=== PATIENT | female | born 1970 | race Caucasian/White ===

== ENCOUNTER 2020-12-27 23:25 | Emergency (ER) | payer OTHER, SELFPAY ==
--- NOTE | 2020-12-27 23:31 | ED.GENADULT ---
HPI - General Adult General Chief complaint: ETOH/Substance Use Stated complaint: SI Time Seen by Provider: 12/27/20 23:29 Source: patient Mode of arrival: EMS Limitations: altered mental status History of Present Illness HPI narrative: Patient comes to emergency room under Section 12. According to EMS and Police Department, earlier this evening, patient made suicidal statements to her daughter. Patient has history of previous suicidal attempts. Patient's keeps saying that she wants to go to rehab. Patient denies suicidal or homicidal ideation. Unwilling to give any further history. Patient came in handcuffed. At this time, patient, is loud, but not physically aggressive, patient is not being restrained. Related Data Allergies Allergy/AdvReac Type Severity Reaction Status Date / Time No Known Allergies Allergy Unverified 05/18/20 19:50 [No Known Allergies*] Review of Systems Review of Systems: Keeps saying I want to go to rehab Yes Other (Uncooperative) [facility] Past Medical History Medical History Alcoholism Suicide attempt Surgical History (Updated 12/27/20 @ 23:36 by Cleo Thompson) History of bladder surgery Social History Social History Alcohol intake: current Smoking Status: Current every day smoker Use of substances other than those prescribed or required for medical reasons: No Advance Directives: No Physical Exam Vital Signs: Vital Signs: Last Vital Signs Temp 98.0 F 12/27/20 23:34 Pulse 95 12/27/20 23:34 Resp 18 12/27/20 23:34 BP 127/92 H 12/27/20 23:34 Pulse Ox 98 12/27/20 23:34 Body Mass Index 23.3 Appearance: Alert. Oriented X3. Initially combative, now calm but not cooperative, unwilling to speak , patient is intoxicated Eyes: Pupils equal, round and reactive to light. ENT: Pharynx normal. Neck: Normal inspection. Neck supple. No lymph nodes noted. No crepitus CVS: Normal heart rate and rhythm. Pulses normal. Normal S1 and S2 Respiratory: No respiratory distress. Breath sounds normal. No Wheezing. No rales Abdomen: Soft and nontender. No rigidity. No distention. Skin: Skin warm and dry. Normal skin color. Normal skin turgor. Extremities: No lower extremity edema. Neuro: Cranial nerves 2-12 grossly intact Psych: Moderately agitated, unwilling to speak, intoxicated, crying Medical Decision Making Lab Data Result diagrams: 12/28/20 00:19 12/28/20 00:19 Labs: Lab Results 12/28/20 12/28/20 12/28/20 Range/Units 00:19 00:19 00:19 WBC 6.1 (4.8-10.8) X10*3/uL RBC 4.42 (4.20-5.50) X10*6/uL Hgb 13.7 (12.0-16.0) g/dl Hct 39.9 (37-47) % MCV 90.3 (80-98) fL MCH 31.0 (27.0-33.0) pg MCHC 34.3 (31.0-35.0) g/dl RDW 12.7 (11.0-16.0) % Plt Count 240 (160-400) X10*3/uL MPV 9.3 L (9.4-12.3) fL Immature Gran % (Auto) 0.2 (0.0-0.4) % Neut % (Auto) 37.6 L (45-73) % Lymph % (Auto) 55.4 H (20-40) % [place] % (Auto) 4.2 (2-11) % Eos % (Auto) 1.6 (0-4) % Baso % (Auto) 1.0 (0-2) % Lymph # (Auto) 3.4 (1.2-4.9) X10*3/uL [place] # (Auto) 0.3 (0.1-1.2) X10*3/uL Eos # (Auto) 0.1 (0.0-0.4) X10*3/uL Baso # (Auto) 0.1 (0.0-0.2) X10*3/uL Abs Immat Gran (auto) 0.01 (0.00-0.03) X10*3/uL Absolute Neuts (auto) 2.3 (2.0-8.3) X10*3/uL Absolute Nucleated RBC 0.000 (0.0-0.012) X10*3/uL Nucleated RBC % (auto) 0.0 (0.0-0.2) /100WBC Sodium 145 (135-145) mmol/L Potassium 3.8 (3.3-5.1) mmol/L Chloride 107 (96-108) mmol/L Carbon Dioxide 28 (22-29) mmol/L Anion Gap 14 (12-20) BUN 9 (9-16) mg/dL Creatinine 0.67 (0.5-1.4) mg/dL Estim Creat Clear Calc 88.7 Estimated GFR > 60 Random Glucose 83 (60-115) mg/dL Calcium 8.6 (8.4-10.2) mg/dL Total Bilirubin 0.3 (0.0-1.0) mg/dL Direct Bilirubin < 0.2 (0.0-0.5) mg/dL AST 26 (5-31) U/L ALT 19 (0-31) U/L Alkaline Phosphatase 65 (39-117) U/L Total Protein 6.6 (6.5-8.0) g/dL Albumin 4.2 (3.5-5.0) g/dL Salicylates (15-30) mg/dL Acetaminophen (<30) mcg/mL Ethyl Alcohol 334 H* mg/dL 12/28/20 Range/Units 00:19 WBC (4.8-10.8) X10*3/uL RBC (4.20-5.50) X10*6/uL Hgb (12.0-16.0) g/dl Hct (37-47) % MCV (80-98) fL MCH (27.0-33.0) pg MCHC (31.0-35.0) g/dl RDW (11.0-16.0) % Plt Count (160-400) X10*3/uL MPV (9.4-12.3) fL Immature Gran % (Auto) (0.0-0.4) % Neut % (Auto) (45-73) % Lymph % (Auto) (20-40) % [place] % (Auto) (2-11) % Eos % (Auto) (0-4) % Baso % (Auto) (0-2) % Lymph # (Auto) (1.2-4.9) X10*3/uL [place] # (Auto) (0.1-1.2) X10*3/uL Eos # (Auto) (0.0-0.4) X10*3/uL Baso # (Auto) (0.0-0.2) X10*3/uL Abs Immat Gran (auto) (0.00-0.03) X10*3/uL Absolute Neuts (auto) (2.0-8.3) X10*3/uL Absolute Nucleated RBC (0.0-0.012) X10*3/uL Nucleated RBC % (auto) (0.0-0.2) /100WBC Sodium (135-145) mmol/L Potassium (3.3-5.1) mmol/L Chloride (96-108) mmol/L Carbon Dioxide (22-29) mmol/L Anion Gap (12-20) BUN (9-16) mg/dL Creatinine (0.5-1.4) mg/dL Estim Creat Clear Calc Estimated GFR Random Glucose (60-115) mg/dL Calcium (8.4-10.2) mg/dL Total Bilirubin (0.0-1.0) mg/dL Direct Bilirubin (0.0-0.5) mg/dL AST (5-31) U/L ALT (0-31) U/L Alkaline Phosphatase (39-117) U/L Total Protein (6.5-8.0) g/dL Albumin (3.5-5.0) g/dL Salicylates < 5.0 L (15-30) mg/dL Acetaminophen < 1 (<30) mcg/mL Ethyl Alcohol mg/dL
[2020-12-27 23:34] VITALS: BP 127/92; PULSE 95; RESP 18; TEMP 36.7; O2SAT 98; BMI 23.3
--- NOTE | 2020-12-28 00:11 | PC.NURSE ---
PT CALM AND COOPERATIVE, PO AT BEDSIDE FOR SAFETY. MED REC COMPLETED. PT REQUESTING LIBRIUM. LAST DRINK AT 2230 LAST NIGHT. NO TREMORS OR S/S WITHDRAWAL NOTED AT THIS TIME. SEEN BY Ze IN COMMUNITY- S12, PT CURRENTLY DENYING SI/HI, REQUESTING REHAB. WILL CALL [facility] FOR DETAILS.
[2020-12-28] MEDS: chlordiazePOXIDE HCl 25 MG CAPSULE 50 MG PO (00:20)
[2020-12-28 00:27] LABS: Basophils Absolute Auto 0.1 X10*3/uL (0.0-0.2); Eosinophils Absolute Auto 0.1 X10*3/uL (0.0-0.4); Eosinophils Percent Auto 1.6 % (0-4); Hematocrit 39.9 % (37-47); Hemoglobin 13.7 g/dl (12.0-16.0); Imm Gran Abs Auto 0.01 X10*3/uL (0.00-0.03); Imm Gran Pct Auto 0.2 % (0.0-0.4); Lymphocytes Absolute Auto 3.4 X10*3/uL (1.2-4.9); Lymphocytes Percent Auto 55.4 % (20-40); MANUAL DIFF FLAG NO; Mean Corpuscular HGB Conc 34.3 g/dl (31.0-35.0); Mean Corpuscular Volume 90.3 fL (80-98); Mean Platelet Volume 9.3 fL (9.4-12.3); Monocytes Absolute Auto 0.3 X10*3/uL (0.1-1.2); Monocytes Percent Auto 4.2 % (2-11); Neutrophils Absolute Auto 2.3 X10*3/uL (2.0-8.3); Neutrophils Percent Auto 37.6 % (45-73); Platelet Count 240 X10*3/uL (160-400); Red Blood Count 4.42 X10*6/uL (4.20-5.50); Red Cell Distribution Width 12.7 % (11.0-16.0); White Blood Count 6.1 X10*3/uL (4.8-10.8)
[2020-12-28 00:52] LABS: Ethanol 334 mg/dL
[2020-12-28 00:55] LABS: Alanine Aminotransferase 19 U/L (0-31); Albumin Level 4.2 g/dL (3.5-5.0); Alkaline Phosphatase 65 U/L (39-117); Anion Gap 14 (12-20); Aspartate Amino Transferase 26 U/L (5-31); Bilirubin Direct < 0.2 mg/dL (0.0-0.5); Bilirubin Total 0.3 mg/dL (0.0-1.0); Blood Urea Nitrogen 9 mg/dL (9-16); Calcium 8.6 mg/dL (8.4-10.2); Carbon Dioxide 28 mmol/L (22-29); Chloride 107 mmol/L (96-108); Creatinine Clr Calc Pharmacy 88.7; Estimated Glomerular Filt Rate > 60; Glucose Random 83 mg/dL (60-115); Potassium 3.8 mmol/L (3.3-5.1); Sodium 145 mmol/L (135-145); Total Protein 6.6 g/dL (6.5-8.0)
[2020-12-28 01:00] LABS: Salicylate < 5.0 mg/dL (15-30)
[2020-12-28 01:02] LABS: Acetaminophen LAB < 1 mcg/mL (<30)
[2020-12-28 02:00] VITALS: BP 135/79; PULSE 88; RESP 18; TEMP 36.5; O2SAT 98
--- NOTE | 2020-12-28 02:28 | PC.NURSE ---
PT SPEAKING INAPPROPRIATELY ABOUT ANOTHER PT IN ED- MAKING STATEMENTS ABOUT WANTING HIM IN HER BED, THAT SHE'LL CUDDLE HIM TO NUMEROUS STAFF MEMBERS. ANGERED WHEN ASKED NOT TO TALK ABOUT PT ANYMORE. CALLING STAFF OBSCENE NAMES WHEN ATTEMPTED TO BE REDIRECTED. THIS RN SPOKE DIRECTLY TO PT STATING THAT WE CANNOT AND WILL NOT SPEAK ABOUT THE PT ANYMORE. PT HAS SINCE CEASED SPEAKING ON TOPIC.
[2020-12-28] MEDS: Nicotine 21 MG PATCH.TD24 TRANSDERMA (02:39)
[2020-12-28 02:53] LABS: Glucose Urine UA NEG (NEG); Leukocyte Esterase Urine 2+ (NEG); Nitrite Urine POS (NEG); Specific Gravity - Urine 1.015 (1.005-1.025); UACC Culture Trigger YES; Urine Blood 3+ (NEG); Urine Ketones NEG (NEG); Urine Protein 2+ MG/DL (NEG-TRACE)
[2020-12-28 02:55] LABS: UPreg QC Valid YES; Urine Pregnancy NEGATIVE (NEGATIVE)
[2020-12-28 02:56] LABS: Appearance Urine CLOUDY; Color Urine RED
[2020-12-28 03:00] LABS: Bacteria Urine 1+ /LPF; RBC Urine TNTC /HPF (0); Squamous Epithelial Cell Urine 4+ /LPF; WBC Urine 50-75 /HPF (0-4)
[2020-12-28 03:20] LABS: Amphetamine Screen Urine Not Detected (Not Detect); Barbiturates, Urine Not Detected (Not Detect); Benzodiazepines Screen Urine Not Detected (Not Detect); Cannabinoid Screen Urine POSITIVE (Not Detect); Cocaine Screen Urine Not Detected (Not Detect); Opiate Screen Urine Not Detected (Not Detect); Phencyclidine Screen Urine Not Detected (Not Detect)
--- NOTE | 2020-12-28 03:50 | PC.NURSE ---
Patient just got transferred from [facility], patient under ETOH influence, gait steady and intact, compliant with covid swab, patient refused to provide pharmacy information, stated I don't want to talk now N faxed and called, spoke with Corie who confirmed that patient was seen earlier by [facility] in the community, assessment not complete at this time, patient will be seen in the morning for further assessment, patient is currently in bed resting, will continue to monitor.
[2020-12-28 04:01] LABS: COVID-19 Test Negative (Negative); IDNOW Serial# 9DD0AD1C
[2020-12-28] MEDS: Nitrofurantoin Monohyd/M-Cryst 100 MG CAPSULE PO (08:55)
[2020-12-28] MEDS: LORazepam 0.5 MG TABLET 2 MG PO (08:55)
[2020-12-28 09:14] VITALS: BP 128/80; PULSE 97; RESP 16; TEMP 36.6; O2SAT 98
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
--- NOTE | 2020-12-28 14:02 | MHC.RECOVRN ---
T/w met with pt in [facility] after request from CARE Team. Pt reports 1 liter of vodka daily x 7 days. Age of first use 16. Pt reports 20+ ATS/ rehab admissions. Longest period in recovery was 1.5 years a few years ago. Pt reports supportive friends and family as well as attending AA. Pt has done virtual meetings and is looking forward to return to in person where better connections can be made. Pt reports hx of naltrexone and Vivitrol and is interested in restarting naltrexone. Pt educated regarding [facility] and is interested in completing intake as soon as possible. Pt also interested in reading coach. Has had one in the past but would like to reconnect with a new defensive line coach. Pt very much wants supports in place prior [place] [facility] Plan: [facility] appointment today at 2:15 for intake. Referral to reading coach through Marip[facility] Valentine completed.
--- NOTE | 2020-12-28 14:09 | MHC.CARE ---
CARE Team met with this 50 year-old woman who was brought to the ED by ambulance from home that was called by her daughter after patient made suicidal statements while intoxicated, her BAL was 334 at midnight. Today she explained that she has not been taking her prescribed medication (Wellbutrin and Prozac) and drinking excessively, patient just had a break up with a partner she met at and has been emotional about this. Patient denied having thoughts to end her life, has no plan and no history of attempts or gestures, stated her father by suicide and she would never do that to her family. -Call to patient?s daughter, Leobardo [phone], she does not have concerns about her mother?s safety confirmed no history or recent behavior indicating patient is a danger to herself. -Patient would like to reengaged in therapy, has not been in over a year and will reach out to a previous provider. CARE team gave her list of contact information for area mental health agencies. -Patient does not have a PCP, we were unable to reach [facility], but gave patient the information -Recovery Team met with patient, she now has an appointment at [facility] for 2:15 today, CARE Team will walk patient to the office. -Patient stated that her BC/BS will tomorrow; registration and financial counseling were contacted about setting up [facility]. -[facility] will reach out to patient regarding [employer] -Patient was provided with information about online AA meetings. Provider updated and in agreement with plan to D/C home with above supports
== END 2020-12-28 13:57 | disposition home or self-care (01) ==
PROVIDERS: Emergency Provider Emergency Medicine
DX: F33.1 Major depressive disorder, recurrent, moderate (principal); R45.851 Suicidal ideations; F17.200 Nicotine dependence, unspecified, uncomplicated; Z71.6 Tobacco abuse counseling; Z20.822 Contact with and (suspected) exposure to COVID-19; Z79.899 Other long term (current) drug therapy
CPT/HCPCS: 36415; 80048; 80076; 80143; 80179; 80307; 80320; 81001; 81003; 81025; 83735; 85025; 87086; 87635; 99285

== ENCOUNTER → 2020-12-28 14:20 | Outpatient (BNVA) | payer OTHER, SELFPAY | PROVIDERS: Visit Provider Nurse Practitioner Psychiatric/Mental Health | DX: F10.20 Alcohol dependence, uncomplicated (principal) | CPT/HCPCS: 99212 ==

== ENCOUNTER 2022-05-02 10:03 | Outpatient (REF) | payer BC, SELFPAY ==
[2022-05-02 10:21] LABS: MANUAL DIFF FLAG NO
[2022-05-02 10:45] LABS: Basophils Absolute Auto 0.1 X10*3/uL (0.0-0.2); Basophils Percent Auto 1.3 % (0-2); Eosinophils Absolute Auto 0.1 X10*3/uL (0.0-0.4); Eosinophils Percent Auto 2.8 % (0-4); Hematocrit 38.6 % (37.0-47.0); Hemoglobin 12.9 g/dl (12.0-16.0); Imm Gran Abs Auto 0.01 X10*3/uL (0.00-0.03); Imm Gran Pct Auto 0.3 % (0.0-0.4); Lymphocytes Absolute Auto 1.5 X10*3/uL (1.2-4.9); Lymphocytes Percent Auto 38.6 % (20-40); Mean Corpuscular HGB Conc 33.4 g/dl (31.0-35.0); Mean Corpuscular Hemoglobin 29.7 pg (27.0-33.0); Mean Corpuscular Volume 88.9 fL (80.0-98.0); Mean Platelet Volume 9.7 fL (9.4-12.3); Monocytes Absolute Auto 0.4 X10*3/uL (0.1-1.2); Monocytes Percent Auto 9.8 % (2-11); Neutrophils Absolute Auto 1.9 x10*3/uL (2.0-8.3); Neutrophils Percent Auto 47.2 % (45-73); Platelet Count 269 X10*3/uL (160-400); Red Blood Count 4.34 X10*6/uL (4.20-5.50); Red Cell Distribution Width 12.1 % (11.0-16.0)
[2022-05-02 11:10] LABS: Alanine Aminotransferase 14 U/L (0-31); Albumin Level 4.3 g/dL (3.5-5.0); Alkaline Phosphatase 50 U/L (39-117); Anion Gap 13 (12-20); Aspartate Amino Transferase 17 U/L (5-31); Bilirubin Total 0.5 mg/dL (0.0-1.0); Blood Urea Nitrogen 13 mg/dL (9-16); Carbon Dioxide 29 mmol/L (22-29); Chloride 103 mmol/L (96-108); Estimated Glomerular Filt Rate > 60; Glucose Fasting 83 mg/dL (60-99); Potassium 4.5 mmol/L (3.3-5.1); Sodium 140 mmol/L (135-145); Total Protein 6.7 g/dL (6.5-8.0)
[2022-05-02 11:31] LABS: TSH reflex Free T4 1.22 uIU/mL (0.32-4.0)
[2022-05-04 15:20] LABS: CRP High Sensitivity 0.5 mg/L
== END 2022-05-02 10:04 | disposition home or self-care (01) ==
LOC: HO.LAB 10:03
PROVIDERS: Visit Provider Nurse Practitioner Family
DX: N92.6 Irregular menstruation, unspecified (principal)
CPT/HCPCS: 36415; 80053; 84443; 85025; 86141

== ENCOUNTER → 2022-09-13 10:46 | Outpatient (BNVA) | payer SELFPAY | PROVIDERS: PCP Nurse Practitioner Psychiatric/Mental Health; Visit Provider Nurse Practitioner Psychiatric/Mental Health | DX: F10.20 Alcohol dependence, uncomplicated (principal); Z51.81 Encounter for therapeutic drug level monitoring; Z79.899 Other long term (current) drug therapy | CPT/HCPCS: 99202 ==

== ENCOUNTER → 2022-09-20 09:06 | Outpatient (BNVA) | payer OTHER, SELFPAY | PROVIDERS: PCP Nurse Practitioner Psychiatric/Mental Health; Visit Provider Nurse Practitioner Psychiatric/Mental Health | DX: Z13.89 Encounter for screening for other disorder (principal) ==

== ENCOUNTER → 2022-09-27 10:09 | Outpatient (BNVA) | payer OTHER, SELFPAY | PROVIDERS: PCP Nurse Practitioner Psychiatric/Mental Health; Visit Provider Nurse Practitioner Psychiatric/Mental Health | DX: Z13.89 Encounter for screening for other disorder (principal) ==

== ENCOUNTER 2022-09-27 10:58 | Outpatient (REF) | payer OTHER, SELFPAY ==
[2022-09-27 11:14] LABS: MANUAL DIFF FLAG NO
[2022-09-27 11:42] LABS: Basophils Absolute Auto 0.1 X10*3/uL (0.0-0.2); Basophils Percent Auto 0.9 % (0-2); Eosinophils Percent Auto 0.7 % (0-4); Hematocrit 37.3 % (37.0-47.0); Hemoglobin 12.1 g/dl (12.0-16.0); Imm Gran Abs Auto 0.01 X10*3/uL (0.00-0.03); Imm Gran Pct Auto 0.2 % (0.0-0.4); Lymphocytes Absolute Auto 1.5 X10*3/uL (1.2-4.9); Lymphocytes Percent Auto 26.1 % (20-40); Mean Corpuscular HGB Conc 32.4 g/dl (31.0-35.0); Mean Corpuscular Hemoglobin 27.8 pg (27.0-33.0); Mean Corpuscular Volume 85.7 fL (80.0-98.0); Mean Platelet Volume 9.9 fL (9.4-12.3); Monocytes Absolute Auto 0.4 X10*3/uL (0.1-1.2); Monocytes Percent Auto 7.9 % (2-11); Neutrophils Absolute Auto 3.6 x10*3/uL (2.0-8.3); Neutrophils Percent Auto 64.2 % (45-73); Platelet Count 274 X10*3/uL (160-400); Red Blood Count 4.35 X10*6/uL (4.20-5.50); White Blood Count 5.6 X10*3/uL (4.8-10.8)
[2022-09-27 12:26] LABS: Alanine Aminotransferase 11 U/L (0-31); Albumin Level 4.3 g/dL (3.5-5.0); Alkaline Phosphatase 53 U/L (39-117); Anion Gap 13 (12-20); Aspartate Amino Transferase 15 U/L (5-31); Bilirubin Total 0.3 mg/dL (0.0-1.0); Blood Urea Nitrogen 17 mg/dL (9-16); Calcium 9.2 mg/dL (8.4-10.2); Carbon Dioxide 28 mmol/L (22-29); Chloride 103 mmol/L (96-108); Estimated Glomerular Filt Rate 48; Glucose Random 74 mg/dL (60-115); Potassium 4.6 mmol/L (3.3-5.1); Sodium 139 mmol/L (135-145); Total Protein 6.6 g/dL (6.5-8.0)
== END 2022-09-27 10:59 | disposition home or self-care (01) ==
LOC: HO.LAB 10:58
PROVIDERS: Visit Provider Nurse Practitioner Psychiatric/Mental Health
DX: Z79.899 Other long term (current) drug therapy (principal)
CPT/HCPCS: 36415; 80053; 85025

== ENCOUNTER → 2022-10-04 10:09 | Outpatient (BNVA) | payer OTHER, SELFPAY | PROVIDERS: PCP Nurse Practitioner Psychiatric/Mental Health; Visit Provider Nurse Practitioner Psychiatric/Mental Health | DX: Z13.89 Encounter for screening for other disorder (principal) ==

== ENCOUNTER → 2022-10-16 09:32 | Outpatient (BNVA) | payer OTHER, SELFPAY | PROVIDERS: PCP Nurse Practitioner Psychiatric/Mental Health; Visit Provider Nurse Practitioner Psychiatric/Mental Health | DX: Z13.89 Encounter for screening for other disorder (principal) ==

== ENCOUNTER 2023-04-01 11:13 | Outpatient (AMB) | payer OTHER, SELFPAY ==
--- NOTE | 2023-04-01 11:14 | MHC.PC.OV ---
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 Accompanied by: Self / Same As Patient Allergies No Known Allergies [No Known Allergies*] Allergy (Verified 04/01/23 11:30) Medication List - Last Reconciled 04/01/23 by Bert Cartagena CNP bupropion HCl 300 mg PO DAILY fluoxetine 40 mg PO DAILY Tobacco use date assessed: 04/01/23 Dental Screening Dental Screen Date: 04/01/23 Did you have a dental visit in the last 12 months?: Yes Did you have a dental problem in the last 6 months where you did not have access to dental care?: No Was dental information given to patient?: Patient has dentist HPI HPI Comments History of Present Illness Details 52-year-old female, accompanied by her mother, presents to [facility]. She notes that she was last evaluated by her former PCP 4 years ago. Her last blood work was almost a year ago. She reports PMH significant for anxiety and depression. She notes that she takes Welbutrin and Fluoxetine daily. She requests a referral to a therapist. She notes that she drinks alcohol occasionally. She states she started vaping 2 years ago and have been vaping daily for the past 1 year. She reports intermittent itching of anterior forearms, right worse than left, for the past 1 month. Her symptoms worsen at night. She denies rash, blisters, or drainage. She states that OTC remedies, including hydrocortisone cream have not been effective. She requests dermatology referral. [facility] Medical History Alcoholism Suicide attempt Surgical History History of bladder surgery Social History (Updated 04/01/23 @ 11:21 by Rich Esposito CMA) Housing: House Alcohol intake: current Alcohol intake frequency: holidays/special occasions only Alcohol type: beer Patient Tobacco Use Status: Current everyday Tobacco user (vape ) e-Cigarette/Vaping Use: Currently Using service: No Current occupational status: unemployed Current occupational exposures/hazards: No Cognitive needs: No Hearing needs: No Vision needs: Yes Questionnaire PHQ-9 Over the last 2 weeks, how often have you been bothered by any of the following problems? 1. Little interest or pleasure in doing things: several days 2. Feeling down, depressed, or hopeless: several days 3. Trouble falling or staying asleep, or sleeping too much: nearly every day 4. Feeling tired or having little energy: nearly every day 5. Poor appetite or overeating: more than half the days 6. Feeling bad about yourself - or that you are a failure or have let yourself or your family down: nearly every day 7. Trouble concentrating on things, such as reading the newspaper or watching television: nearly every day 8. Moving or speaking so slowly that other people could have noticed. Or the opposite - being so fidgety or restless that you have been moving around a lot more than usual: not at all 9. Thoughts that you would be better off or of hurting yourself in some way: not at all Total score: 16 Depression Screening Interpretation: Positive Depression Screening Follow-up: Existing condition, In treatment and Community Mental Health Worker F/U 84230 - PHQ-9 Billing: Yes Source: Developed by Drs. Chepe Mace, Jennifer Li, Jovanny Coyne and colleagues, with an educational shireen from [email or web address]. Thrive Questionnaire Date Thrive assessed: 04/01/23 I am a: Patient What is your living situation today?: I have a steady place to live Within the past 12 months, did the food you bought not last and you didn't have the money to get more?: Never true Within the past 12 months, did you worry whether your food would run out before you got money to buy more?: Never true Do you have trouble paying for medicines?: No Do you have trouble getting transportation to medical appointments?: No Do you have trouble paying your heating and electricity bill?: No Do you have trouble taking care of your child, family member or friend?: No Do you have trouble with day-to-day activities such as bathing, preparing meals, shopping, managing finances, etc.?: No Are you currently unemployed and looking for a job?: No Are you interested in more education?: No Please select the resources that you would like help with: None Currently or been in a relationship where the following occur: no concerns reported AUDIT C Alcohol Use Questionnaire (AUDIT-C) 1. How often do you have a drink containing alcohol?: 2-4 times a month 2. How many drinks containing alcohol do you have on a typical day when you are drinking?: 3 or 4 3. How often do you have six or more drinks on one occasion?: Monthly Total Score: 5 RANDELL-7 AMB Questionnaire RANDELL-7 Date RANDELL - 7 assessed: 04/01/23 Feeling nervous, anxious, or on edge: 1 = Several days Not being able to stop or control worryin = Several days Worrying too much about different things: 1 = Several days Trouble relaxin = Several days Being so restless that it is hard to sit still: 0 = Not at all Becoming easily annoyed or irritable: 0 = Not at all Feeling afraid as if something awful might happen: 0 = Not at all Total RANDELL-7 score (0-4 normal; 5-9 mild; 10-14 moderate; 15-21 severe): 4 Source: Developed by Drs. Chepe Mace, Jennifer Li, Jovanny Coyne and colleagues, with an educational shireen from [email or web address]. RANDELL-7 Assessment Billing RANDELL-7 Assessment Tool: RANDELL-7 Assessment 72915 Review of Systems Const Details: Const Denies chills, Denies fatigue, Denies fever(s), Denies headache(s) and Denies weakness ENT Denies dizziness and Denies headache(s) Card Denies chest pain, Denies lightheadedness, Denies dyspnea and Denies other (Palpitations) Resp Denies cough, Denies dyspnea, Denies wheezing and Denies other ( shortness of breath) GI Denies abdominal pain, Denies melena, Denies hematochezia, Denies change in bowel habits, Denies dyspepsia and Denies nausea Denies hematuria and Denies dysuria Musc Denies abnormal gait, Denies myalgias, Denies arthralgias, Denies numbness and Denies tingling Skin/Breast Denies rash, Denies unusual bruising and Denies wounds Neuro Denies abnormal gait, Denies dizziness, Denies headache(s), Denies memory loss, Denies numbness, Denies Sensory deficit (Neuro), Denies tingling and Denies weakness Psych Reports anxiety and Reports depression, Denies memory loss Endo Denies fatigue Aller/Immun Denies wheezing Physical exam (Primary Care) Vital Signs: Last Vital Signs Pulse 62 04/01/23 11:16 BP 102/62 04/01/23 11:16 Pulse Ox 97 04/01/23 11:16 BMI result Body Mass Index 24.8 Tobacco/Smoking Status: Tobacco use Status Tobacco use date assessed 04/01/23 04/01/23 11:16 Patient Tobacco Use Status Current everyday Tobacco ( 04/01/23 11:25 vape ) e-Cigarette/Vaping Use Currently Using 04/01/23 11:25 PHQ-9: PHQ-9 Score PHQ-9: Total score 16 04/01/23 11:25 Depression Screening Interpretation: Positive Depression Screening Follow-up: Existing condition, In treatment and Community Mental Health Worker F/U Thrive Assessment: Date of Thrive Assessment Date Thrive assessed 04/01/23 04/01/23 11:25 Currently or been in a relationship where the following occur: no concerns reported Const Other: General: no acute distress and well developed Nutritional Appearance: well nourished Orientation/consciousness: patient oriented x3 HENMT Head: Yes normocephalic and Yes atraumatic Eyes General: appearance normal, both eyes and all related structures Pupils: Equal, round and reactive pupils present EOM: EOMs intact bilaterally Resp Effort & Inspection: normal respiratory effort Auscultation: clear to auscultation bilaterally Cardio Rate: regular rate Rhythm: regular rhythm Heart sounds: S1 normal heart sound present, S2 normal heart sound present, no gallops, no murmurs and no rubs GI Palpation (GI): No Abdominal aortic bruit present, Soft to palpation, nontender, No hepatosplenomegaly present and No Rebound tenderness present Auscultation: normal bowel sounds General: Yes no CVA tenderness Back/Spine/Pelvis Back: no CVA tenderness Cervical Spine: cervical ROM normal and No Cervical spine tenderness Thoracic/Lumbar Spine: thoraco-lumbar ROM normal, No pain with thoraco-lumbar ROM, No thoracic spinal tenderness and No lumbar spinal tenderness Extrem General: Yes normal to inspection, No edema and No calf tenderness Skin General: warm and dry. Normal skin color. Normal skin turgor Lesions: no lesions Rashes: no rashes Trauma: no lacerations or abrasions Wounds: no wounds Nails: normal Neuro General: patient oriented x3, gait normal and no focal neuro deficit Cranial nerves: Yes Equal, round and reactive pupils present Cognition (Neuro): normal cognition Gait exam (Neuro): Normal gait present Motor exam (neuro): 5/5 motor strength present throughout Sensory Exam: No Sensory deficit (Neuro) Psych Appearance: grossly normal Affect: normal affect Attitude: cooperative Thought process: Normal thought process present Assessment and Plan Assessment & Plan (1) Anxiety and depression: Code(s): F41.9 - Anxiety disorder, unspecified; F32.A - Depression, unspecified Plan: PHQ-9 score revealed moderately severe depression. RANDELL-7 score is normal Bupropion and fluoxetine as prescribed Routine exercise encouraged She met with the community navigator who provided resources to help her connect to a therapist Follow-up in 1 month for complete physical exam Return sooner with worsening or new symptoms Verbalized understanding and agreed with treatment plan. (2) Laboratory tests ordered as part of a complete physical exam (CPE): Code(s): Z00.00 - Encounter for general adult medical examination without abnormal findings Plan: Fasting labs ordered as part of a complete physical exam. Advised to fast for at least 10 hours before getting labs drawn. May drink water Verbalized understanding and agreed with treatment plan. (3) Itchy skin: Code(s): L29.9 - Pruritus, unspecified Plan: She reports intermittent itching of anterior forearms, right worse than left, for the past 1 month. Her symptoms worsen at night. She denies rash, blisters, or drainage. She states that OTC remedies, including hydrocortisone cream have not been effective. She requests dermatology referral. No rash noted Hydrocortisone cream as needed May take Benadryl 50 mg at bedtime Dermatology referral made Return with worsening or new symptoms Verbalized understanding and agreed with treatment plan. Orders: Orders Comprehensive Freedom. Panel Fast Today Z00.00 - Encounter for general adult medical examination without abnormal findings Lipid Panel Today Z00.00 - Encounter for general adult medical examination without abnormal findings TSH reflex Free T4 Today Z00.00 - Encounter for general adult medical examination without abnormal findings Complete Blood Count Auto Diff Today Z00.00 - Encounter for general adult medical examination without abnormal findings UA CC w/rflx Micro + Cult Today Z00.00 - Encounter for general adult medical examination without abnormal findings Referrals Dermatology Referral L29.9 - Pruritus, unspecified Medications: Changed From bupropion HCl 300 mg PO DAILY To bupropion HCl 300 mg PO DAILY 90 days 90 tabs 1RF From fluoxetine 40 mg PO DAILY To fluoxetine 40 mg PO DAILY 90 days 90 caps 1RF Coding Level of Care Code New Pt Level 3 (38659) Diagnoses Anxiety and depression F41.9; F32.A Laboratory tests ordered as part of a complete physical exam (CPE) Z00.00 Itchy skin L29.9 Additional Codes RANDELL-7 Assessment Billing - RANDELL-7 Assessment Tool: RANDELL-7 Assessment 34213 ([id number])
[2023-04-01 11:16] VITALS: BP 102/62; PULSE 62; O2SAT 97; BMI 24.8
== END 2023-04-01 13:30 | disposition home or self-care (01) ==
PROVIDERS: PCP Nurse Practitioner Family; Visit Provider Nurse Practitioner Family
DX: F41.9 Anxiety disorder, unspecified (principal); F32.A Depression, unspecified; L29.9 Pruritus, unspecified
CPT/HCPCS: 99213

== ENCOUNTER 2024-05-12 13:14 | Outpatient (AMB) | payer OTHER, SELFPAY ==
--- NOTE | 2024-05-12 13:16 | A.OFFPC_ITS ---
Vital Signs 05/12/24 13:24 Height 5 ft 4 in Weight 142 lb BMI 24.4 BP 98/74 Blood Pressure Location Lt brachial Position Sitting Respiration 16 Pulse 74 Pulse Source Pulse Oximeter Temp 98.0 F Temp Source Oral Pulse Oximetry (%) 98 Oxygen Delivery Method Room Air Intake Visit Reasons: Bad cough , conjestion and fever Intake Note: patient here c/o Bad cough, congestion. 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 Is last menstrual period known: Yes Last menstrual period: 05/05/24 Post menopausal: No Patient : No Allergies No Known Allergies [No Known Allergies*] Allergy (Verified 05/12/24 13:32) Medication List - Last Reconciled 05/12/24 by Bert Cartagena CNP bupropion HCl XL (Wellbutrin XL) 300 mg PO QAM fluoxetine (Prozac) 40 mg PO DAILY Tobacco use date assessed: 05/12/24 Dental Screening Dental Screen Date: 04/01/23 HPI HPI Comments History of Present Illness Details 54-year-old female presents with complai nts of productive cough with thick green mucus, chest congestion, and sinus pressure She has been taking mucinex, dextromethophan, and cough drops with suppression of her cough. Her symptoms have been ongoing for the past 1 weeks and have progressively worsened. She notes sick contacts. She denies constitutional symptoms. [facility] Medical History Alcoholism Suicide attempt Surgical History History of bladder surgery Social History (System 07/03/23 @ 14:59 by Rosy Weeks) Housing: House Alcohol intake: current Alcohol intake frequency: holidays/special occasions only Alcohol type: beer Patient Tobacco Use Status: Former Tobacco user (vape ) e-Cigarette/Vaping Use: Currently Using service: No Current occupational status: unemployed Current occupational exposures/hazards: No Cognitive needs: No Hearing needs: No Vision needs: Yes Female Reproductive History Menstrual Date of last menstrual period: 05/05/24 Questionnaire Thrive Questionnaire Date Thrive assessed: 04/01/23 ARNDELL-7 AMB Questionnaire RANDELL-7 Date RANDELL - 7 assessed: 04/01/23 Source: Developed by Drs. Chepe Mace, Jennifer Li, Jovanny Coyne and colleagues, with an educational shireen from [employer]. Review of Systems Const Details: Const Denies chills, Denies fatigue, Denies fever(s), Denies headache(s) and Denies weakness ENT Reports as per HPI Card Denies chest pain, Denies lightheadedness, Denies dyspnea and Denies other (Palpitations) Resp Reports cough, Denies dyspnea, Denies wheezing and Denies other ( shortness of breath) GI Denies abdominal pain, Denies melena, Denies hematochezia, Denies change in bowel habits, Denies dyspepsia and Denies nausea Denies hematuria and Denies dysuria Musc Denies abnormal gait, Denies myalgias, Denies arthralgias, Denies numbness and Denies tingling Skin/Breast Denies rash, Denies unusual bruising and Denies wounds Neuro Denies abnormal gait, Denies dizziness, Denies headache(s), Denies memory loss, Denies numbness, Denies Sensory deficit (Neuro), Denies tingling and Denies weakness Endo Denies cold intolerance, Denies fatigue, Denies heat intolerance, Denies polydipsia and Denies polyuria Aller/Immun Denies wheezing Physical exam (Primary Care) Vital Signs: Last Vital Signs Temp 98.0 F 05/12/24 13:24 Pulse 74 05/12/24 13:24 Resp 16 05/12/24 13:24 BP 98/74 05/12/24 13:24 Pulse Ox 98 05/12/24 13:24 Oxygen Delivery Method Room Air 05/12/24 13:24 BMI result Body Mass Index 24.4 Tobacco/Smoking Status: Tobacco use Status Tobacco use date assessed 05/12/24 05/12/24 13:27 Patient Tobacco Use Status Former Tobacco user (vape ) 05/12/24 13:27 e-Cigarette/Vaping Use Currently Using 05/12/24 13:17 Thrive Assessment: Date of Thrive Assessment Date Thrive assessed 04/01/23 05/12/24 13:17 Const Other: General: no acute distress and well developed Nutritional Appearance: well nourished Orientation/consciousness: patient oriented x3 HENMT Head is normocephalic Bilateral ear canal and TM are normal Nasal turbinates and oropharynx are pink and moist Sinuses are nontender with palpation No auricular or cervical lymphadenopathy Eyes General: appearance normal, both eyes and all related structures Pupils: Equal, round and reactive pupils present EOM: EOMs intact bilaterally Resp Effort & Inspection: normal respiratory effort Auscultation: clear to auscultation bilaterally Cardio Rate: regular rate Rhythm: regular rhythm Heart sounds: S1 normal heart sound present, S2 normal heart sound present, no gallops, no murmurs and no rubs GI Palpation (GI): No Abdominal aortic bruit present, Soft to palpation, nontender, No hepatosplenomegaly present and No Rebound tenderness present Auscultation: normal bowel sounds General: Yes no CVA tenderness Back/Spine/Pelvis Back: no CVA tenderness Cervical Spine: cervical ROM normal and No Cervical spine tenderness Thoracic/Lumbar Spine: thoraco-lumbar ROM normal, No pain with thoraco-lumbar ROM, No thoracic spinal tenderness and No lumbar spinal tenderness Extrem General: Yes normal to inspection, No edema and No calf tenderness Skin General: warm and dry. Normal skin color. Normal skin turgor Neuro General: patient oriented x3, gait normal and no focal neuro deficit Cranial nerves: Yes Equal, round and reactive pupils present Cognition (Neuro): normal cognition Gait exam (Neuro): Normal gait present Sensory Exam: No Sensory deficit (Neuro) Psych Appearance: grossly normal Affect: normal affect Attitude: cooperative Thought process: Normal thought process present Assessment and Plan Assessment & Plan (1) Viral upper respiratory illness: Code(s): J06.9 - Acute upper respiratory infection, unspecified Plan: Productive cough, sinus pressure, and chest congestion for the past 1 week; symptoms progressively worsened Likely viral illness though possibly allergies. No exam evidence of bacterial infection Viral illness There is no antibiotic medication for viruses.? They must run their course.? Most average 5-7 days but 7-10 days is not uncommon and up to 14 days is still possible.? A cough is often the last symptom to resolve and this can last for weeks in some cases. Rest Hydrate well -? Drink plenty of fluids.? Especially water. Tylenol or ibuprofen for muscle aches, headache, fever/discomfort Cannot rule out COVID-19/RSV/Flu infection Nasal swab acquired and will be sent to the lab Follow-up for an extended physical exam, anxiety, and depression Return for new or worsening symptoms Verbalized understanding and agreed with treatment plan. (2) Cough: Code(s): R05.9 - Cough, unspecified Plan: Plan as above Orders: Orders TSH reflex Free T4 Today Z00.00 - Encounter for general adult medical examination without abnormal findings Microalbumin, Random (w Creat) Today Z00.00 - Encounter for general adult medical examination without abnormal findings SARS-CoV2/FLU/RSV Today J06.9 - Acute upper respiratory infection, unspecified, R05.9 - Cough, unspecified Complete Blood Count Auto Diff Today Z00.00 - Encounter for general adult medical examination without abnormal findings Comprehensive [place]. Panel Fast Today Z00.00 - Encounter for general adult medical examination without abnormal findings Lipid Panel Today Z00.00 - Encounter for general adult medical examination without abnormal findings UA CC w/rflx Micro + Cult Today Z00.00 - Encounter for general adult medical examination without abnormal findings Coding Level of Care Code Est Pt Level 3 (21106) Diagnoses Viral upper respiratory illness J06.9 Cough R05.9
[2024-05-12 13:24] VITALS: BP 98/74; PULSE 74; RESP 16; TEMP 36.7; O2SAT 98; BMI 24.4
== END 2024-05-12 13:53 | disposition home or self-care (01) ==
LOC: HO.HMGFM 13:14
PROVIDERS: PCP Nurse Practitioner Family; Visit Provider Nurse Practitioner Family
DX: J06.9 Acute upper respiratory infection, unspecified (principal); R05.9 Cough, unspecified
CPT/HCPCS: 99213

== ENCOUNTER 2024-05-12 13:55 | Outpatient (REF) | payer OTHER, SELFPAY ==
[2024-05-12 15:10] LABS: Influenza A PCR NEGATIVE (Negative); Influenza B PCR NEGATIVE (Negative); Resp Syncy Virus RNA Qual PCR NEGATIVE (Negative); SARS COV2 PCR INHOUSE NEGATIVE (Negative)
== END 2024-05-12 13:56 | disposition home or self-care (01) ==
LOC: HO.LAB 13:55
PROVIDERS: Visit Provider Nurse Practitioner Family
DX: J06.9 Acute upper respiratory infection, unspecified (principal); R05.9 Cough, unspecified
CPT/HCPCS: 0241U

== ENCOUNTER 2024-05-22 17:55 | Inpatient (IN) | payer OTHER, SELFPAY ==
[2024-05-22] VITALS (9 sets, daily range): BP systolic 83–117; BP diastolic 44–66; PULSE 100–143; RESP 12–24; TEMP 37.2–39.4; O2SAT 96–98; BMI 24.0
--- NOTE | ~2024-05-22 | US_ITS ---
EXAMINATION: US TRIPLEX LOWER EXTREMITY, BILATERAL CLINICAL INFORMATION: Recently diagnosed pulmonary embolism COMPARISON: None available. TECHNIQUE: Color-flow triplex imaging with spectral analysis and compression Doppler were performed on the bilateral lower extremities. FINDINGS: Respiratory variation, normal compression and augmented flow are noted throughout the bilateral lower extremities. The visualized common femoral vein, superficial femoral vein, profunda femoral vein, popliteal vein and midcalf peroneal and posterior tibial venous segments show no evidence of deep venous thrombosis bilaterally. There is no Mcgraw's cyst. US/US venous duplex LE BI IMPRESSION: No evidence of deep venous thrombosis involving the bilateral lower extremities. Electronically signed by: Marni Marshall MD 05/24/2024 12:16 PM EDT
--- NOTE | ~2024-05-22 | XR_ITS ---
EXAMINATION: XR CHEST CLINICAL INFORMATION: Follow up CHF, pneumonia, patient having echo. COMPARISON: 05/23/2024. TECHNIQUE: Frontal view of the chest was obtained. FINDINGS: There is no gross pneumothorax. Lung volumes are low. Small left pleural effusion has decreased with decreased left basilar opacities. Persistent small right pleural effusion with persistent right basilar opacities. Diffusely prominent interstitial opacities. Cardiomediastinal silhouette difficult to evaluate due to bilateral pleural effusions and bibasilar opacities, left greater than right. XR/XR chest 1V IMPRESSION: Small left pleural effusion has decreased with decreased left basilar opacities. Persistent small right pleural effusion with persistent right basilar opacities. This study was presented today, May 24, 2024, for interpretation. Stat results provided at this time as requested by referring provider. Electronically signed by: Vikki Alicea MD 05/24/2024 10:59 AM EDT
--- NOTE | ~2024-05-22 | XR_ITS ---
EXAMINATION: XR CHEST CLINICAL INFORMATION: Worsening shortness of breath and hypoxemia. COMPARISON: No prior chest x-ray. Chest CT dated May 22, 2024. TECHNIQUE: Portable AP view of the chest was obtained. FINDINGS: Right basilar interstitial and airspace disease appears worse compared with CT scan from one day prior. Moderate left basilar hazy density suggesting pleural fluid, pleural thickening, atelectasis, infiltrate, and/or mass, probably also worse worse. No pneumothorax is seen. The cardiac silhouette is suboptimally evaluated. The mediastinum, bones, and soft tissues appear unremarkable. XR/XR chest 1V IMPRESSION: Findings as above. Electronically signed by: Paul Devries MD 05/23/2024 03:32 PM EDT
--- NOTE | ~2024-05-22 | CT_ITS ---
EXAMINATION: CT ANGIOGRAM CHEST, PE PROTOCOL CLINICAL INFORMATION: Dyspnea COMPARISON: None TECHNIQUE: Multidetector CT pulmonary angiography of the thorax was performed according to the pulmonary embolism protocol after intravenous administration of 65 mL of intravenous Omnipaque 350. Reformatted coronal and sagittal imaging was performed. 3-D MIP images performed at a dedicated separate workstation. This CT examination was performed using dose optimization techniques as appropriate, variously including the following: *Automated exposure control *Adjustment of mA and/or kV according to patient size (this includes techniques or standardized protocols for targeted exams where dose is matched to indication/reason for exam; i.e. extremities or head) *Use of iterative reconstruction technique DLP: 178 mGy-cm QUALITY: Overall Exam Quality: Satisfactory. Pulmonary Arterial Enhancement: Adequate. Breath Hold: Adequate. Artifacts Impacting Image Quality: None. FINDINGS: VASCULAR: Heart: Normal in size. Coronary artery calcifications not present. Aorta: No thoracoabdominal aortic aneurysm. Three vessel arch. Pulmonary Artery: Small nonocclusive filling defect identified within the left lower lobe segmental pulmonary arterial branch (8; 47). NONVASCULAR: THORAX: Thyroid Gland: The visualized thyroid gland is normal. Lymph Nodes: No supraclavicular, axillary, mediastinal or hilar lymphadenopathy is identified. Airways: The trachea and central bronchi are normal. Lungs: Lingular consolidation with surrounding tree-in-bud nodules, likely pneumonia. Additional smaller consolidation noted in the left lower lobe. Pleura: No pleural effusion. No pneumothorax. Upper Abdomen: The visualized upper abdomen is unremarkable. Soft Tissues/Musculoskeletal: No acute fracture or significant focal lesion. CT/CT angio chest PE protocol IMPRESSION: 1. Nonocclusive acute pulmonary embolus within the left lower lobe segmental branch. 2. Lingular and left lower lobe pneumonia. Fleischner guidelines were followed. This critical test result was discussed with Dr. Britton at 10:09 PM on 05/22/[address] Jaskaran Redmond at the time of discovery. It was ascertained that the content and the importance of the findings was understood at the time of the direct communication. Electronically signed by: Jaskaran Redmond DO 05/22/2024 10:13 PM EDT
--- NOTE | 2024-05-22 17:57 | ECG_ITS ---
Test Reason : CP Blood Pressure : / mmHG Vent. Rate : 134 BPM Atrial Rate : 134 BPM P-R Int : 142 ms QRS Dur : 094 ms QT Int : 284 ms P-R-T Axes : 050 008 009 degrees QTc Int : 424 ms Sinus tachycardia Low voltage QRS Incomplete right bundle branch block Borderline ECG No previous ECGs available Referred By: Luzma Douglass Electronically Signed By:MIN ALVAREZ
--- NOTE | 2024-05-22 18:04 | ED.GENADULT ---
HPI - General Adult General Chief complaint: Dyspnea Stated complaint: chest pain[facility]sob[facility] Time Seen by Provider: 05/22/24 19:56 Source: patient, RN notes reviewed and old records reviewed Mode of arrival: ambulatory Limitations: no limitations History of Present Illness ED Provider: Reba AKBAR narrative: 54-year-old female with past medical history significant for alcohol use disorder presents for evaluation of cough, fevers, shortness of breath. Patient uses a vape but does not smoke tobacco She reports 2-3 weeks of increasing cough, congestion, shortness of breath and postnasal drip. She reports being seen at [facility] yesterday. She had a normal chest x-ray and was discharged home with a diagnosis of ?a virus. ? She took ibuprofen and Tylenol at 1:00 p.m. Patient reports she feels worse today. She has left-sided chest pain that radiates to her shoulder. She reports she has pain with deep inspiration Denies any leg swelling, recent travel Denies any history of DVT or PE Related Data Home Medications ?Medication ?Instructions ?Recorded ?Confirmed bupropion HCl 300 mg 24 hr tablet, 300 mg PO DAILY 05/23/24 extended release (Wellbutrin XL) Previous Rx's ?Medication ?Instructions ?Recorded fluoxetine 40 mg capsule (Prozac) 40 mg PO DAILY #30 caps 09/27/22 Allergies Allergy/AdvReac Type Severity Reaction Status Date / Time No Known Allergies Allergy Verified 05/22/24 18:08 [No Known Allergies*] Review of Systems Constitutional: Constitutional: Reports body ache(s), Reports chills, Reports fever(s), Denies headache(s), Reports lethargy, Reports malaise and Reports weakness Eyes: Eyes: Denies blurry vision ENT: Denies headache(s) and Denies sore throat Cardiovascular: Cardiovascular: Reports chest pain and Reports dyspnea Respiratory: Respiratory: Reports chest congestion, Reports cough, Reports pain on inspiration, Reports pain with cough and Reports dyspnea Gastrointestinal: Gastrointestinal: Denies abdominal pain, Denies nausea and Denies vomiting Genitourinary: Genitourinary: Denies dysuria Musculoskeletal: Musculoskeletal: Denies back pain Integumentary/Breasts: Skin/Breast: Denies rash Neurologic: Denies headache(s) and Reports weakness PMFSH Past Medical History Medical History Alcoholism Suicide attempt Surgical History History of bladder surgery Social History Social History (System 07/03/23 @ 14:59 by Rosy Weeks) Housing: House Alcohol intake: current Alcohol intake frequency: holidays/special occasions only Alcohol type: beer Patient Tobacco Use Status: Former Tobacco user Smoked in Last 30 Days: Yes e-Cigarette/Vaping Use: Currently Using Use of substances other than those prescribed or required for medical reasons: No Advance Directives: No Advance Directives Information Provided: No Do you have a plan to hurt others: No Plan Patient : No service: No Current occupational status: unemployed Current occupational exposures/hazards: No Cognitive needs: No Hearing needs: No Vision needs: Yes Physical Exam ED Vital Signs: Vital Signs - 24 hr 05/22/24 18:04 05/22/24 19:56 05/22/24 20:29 Temperature 100.7 F H 102.7 F H 102.9 F H Pulse Rate 143 H 131 H 127 H Respiratory Rate 20 24 H 15 Blood Pressure 101/66 117/44 L 105/65 Pulse Oximetry 96 98 98 Oxygen Delivery Method Room Air Room Air Room Air Oxygen Flow Rate 05/22/24 21:02 05/22/24 21:20 05/22/24 21:44 Temperature 100.5 F H 100.5 F H 100.4 F Pulse Rate 116 H 112 H 106 H Respiratory Rate 12 18 15 Blood Pressure 91/58 L 90/57 L 87/54 L Pulse Oximetry 96 96 Oxygen Delivery Method Room Air Room Air Room Air Oxygen Flow Rate 05/22/24 22:00 05/22/24 22:41 05/22/24 23:26 Temperature 99.0 F Pulse Rate 110 H 104 H 100 Respiratory Rate 18 18 20 Blood Pressure 88/54 L 94/54 L 83/53 L Pulse Oximetry 96 98 97 Oxygen Delivery Method Oxygen Flow Rate 05/23/24 00:00 05/23/24 01:07 05/23/24 01:12 Temperature 99.0 F Pulse Rate 98 95 95 Respiratory Rate 18 Blood Pressure 84/54 L 81/55 L 82/52 L Pulse Oximetry 98 Oxygen Delivery Method Oxygen Flow Rate 05/23/24 01:17 05/23/24 01:28 05/23/24 01:31 Temperature Pulse Rate 91 93 99 Respiratory Rate 18 22 H Blood Pressure 86/58 L 97/68 96/75 Pulse Oximetry 96 95 Oxygen Delivery Method Room Air Oxygen Flow Rate 05/23/24 01:41 05/23/24 02:00 05/23/24 02:07 Temperature 98.3 F Pulse Rate 94 97 96 Respiratory Rate 20 19 19 Blood Pressure 89/62 L 89/62 L 101/65 Pulse Oximetry 95 97 97 Oxygen Delivery Method Room Air Room Air Room Air Oxygen Flow Rate 05/23/24 02:11 05/23/24 02:49 05/23/24 02:50 Temperature Pulse Rate 96 98 98 Respiratory Rate 20 18 Blood Pressure 96/61 102/67 102/67 Pulse Oximetry 100 100 Oxygen Delivery Method Room Air Room Air Oxygen Flow Rate 05/23/24 02:56 05/23/24 03:06 05/23/24 03:09 Temperature Pulse Rate 108 H 106 H 107 H Respiratory Rate 18 22 H 20 Blood Pressure 88/59 L 99/64 85/57 L Pulse Oximetry 95 92 95 Oxygen Delivery Method Room Air Room Air Oxygen Flow Rate 05/23/24 03:24 05/23/24 03:25 05/23/24 03:26 Temperature Pulse Rate 100 Respiratory Rate Blood Pressure 81/53 L Pulse Oximetry 89 L 95 Oxygen Delivery Method Room Air Nasal Cannula Oxygen Flow Rate 2 05/23/24 03:31 05/23/24 03:39 05/23/24 04:00 Temperature Pulse Rate 97 93 96 Respiratory Rate 28 H 20 Blood Pressure 79/54 L 89/61 L 96/68 Pulse Oximetry 96 96 Oxygen Delivery Method Nasal Cannula Nasal Cannula Oxygen Flow Rate 2 05/23/24 04:04 05/23/24 04:09 05/23/24 04:34 Temperature 98.6 F Pulse Rate 95 90 86 Respiratory Rate 24 H 24 H 24 H Blood Pressure 105/72 98/69 97/69 Pulse Oximetry 95 96 95 Oxygen Delivery Method Nasal Cannula Nasal Cannula Nasal Cannula Oxygen Flow Rate 2 2 2 05/23/24 04:49 05/23/24 05:09 05/23/24 05:14 Temperature Pulse Rate 82 82 79 Respiratory Rate 24 H 26 H 26 H Blood Pressure 94/65 105/73 102/73 Pulse Oximetry 95 96 96 Oxygen Delivery Method Nasal Cannula Nasal Cannula Nasal Cannula Oxygen Flow Rate 2 2 2 05/23/24 05:19 05/23/24 05:24 05/23/24 06:03 Temperature 98.5 F Pulse Rate 83 79 80 Respiratory Rate 26 H 24 H 24 H Blood Pressure 103/72 100/71 103/72 Pulse Oximetry 96 96 97 Oxygen Delivery Method Nasal Cannula Nasal Cannula Nasal Cannula Oxygen Flow Rate 2 2 2 05/23/24 07:06 05/23/24 07:33 05/23/24 08:03 Temperature 98.3 F Pulse Rate 82 82 81 Respiratory Rate 20 22 H 22 H Blood Pressure 118/82 102/68 107/74 Pulse Oximetry 97 97 97 Oxygen Delivery Method Nasal Cannula Nasal Cannula Nasal Cannula Oxygen Flow Rate 2 2 2 05/23/24 09:00 05/23/24 09:16 05/23/24 09:30 Temperature Pulse Rate 73 83 87 Respiratory Rate 25 H 18 Blood Pressure 120/78 98/69 103/67 Pulse Oximetry 97 95 Oxygen Delivery Method Nasal Cannula Nasal Cannula Oxygen Flow Rate 2 2 05/23/24 09:45 05/23/24 09:47 05/23/24 10:03 Temperature Pulse Rate 83 70 92 Respiratory Rate 26 H 18 Blood Pressure 124/84 124/84 97/70 Pulse Oximetry 96 Oxygen Delivery Method Nasal Cannula Oxygen Flow Rate 2 05/23/24 10:23 05/23/24 10:31 05/23/24 11:13 Temperature Pulse Rate 90 92 86 Respiratory Rate 22 H 27 H 20 Blood Pressure 97/64 104/63 91/57 L Pulse Oximetry 94 94 94 Oxygen Delivery Method Room Air Nasal Cannula Oxygen Flow Rate 2 05/23/24 11:14 05/23/24 11:30 05/23/24 11:48 Temperature Pulse Rate 88 85 89 Respiratory Rate 28 H 16 26 H Blood Pressure 95/57 L 93/59 L 109/69 Pulse Oximetry 94 93 95 Oxygen Delivery Method Room Air Room Air Oxygen Flow Rate 05/23/24 12:21 05/23/24 13:10 Temperature 98.5 F 98.8 F Pulse Rate 92 102 H Respiratory Rate 32 H 26 H Blood Pressure 103/67 127/78 Pulse Oximetry 91 L 92 Oxygen Delivery Method Room Air Nasal Cannula Oxygen Flow Rate 2 BMI result Body Mass Index 24.0 Const General: healthy appearing, no acute distress, alert and awake Nutritional Appearance: well nourished Orientation/consciousness: patient oriented x3 HENMT Head: Yes normocephalic and Yes atraumatic Eyes Eyelids: Yes eyelids normal Conjunctivae: conjunctivae normal Sclerae: sclerae normal Corneas: corneas normal Pupils: Equal, round and reactive pupils present EOM: EOMs intact bilaterally Neck Neck: Yes full ROM Resp Effort & Inspection: normal respiratory effort, able to speak in complete sentences, no audible wheezes and not labored Auscultation: clear to auscultation bilaterally Cardio Rate: regular rate Rhythm: regular rhythm GI Inspection: No distended Palpation (GI): Soft to palpation, not firm, nontender, no guarding and not rigid Skin General skin exam: elasticity normal Neuro General: patient oriented x3 Cranial nerves: Yes Equal, round and reactive pupils present and Yes Bilaterally intact EOM present Cognition (Neuro): normal cognition Extrem Other: Moving all extremities well without any obvious deformities Course Course Course Narrative: This is a rapid medical exam performed by Sydney Douglass NP: Additional HPI, ROS, PE not included below will be deferred to primary provider. Patient is a 54-year-old female with history of alcohol use disorder presenting to the ED with complaint of cough productive of green sputum for the past 2 weeks, fevers, chest pain on left side radiating to left shoulder. Seen at [facility] yesterday, told CXR was normal, advised Tylenol/ibuprofen/sudafed. Tested negative for flu/Covid/RSV. Tachycardic to 140's in triage, temp 100.7. Last took ibuprofen and tylenol at 1pm. Plan: EKG, labs, viral swabs Reevaluation(s) Reevaluation #1: After the patient's fever was treated, she had 2 documented systolic blood pressures below 90. She at this time meets criteria for severe sepsis, we added a 2 L of fluid to total 2 L which was over 30 cc per kg for this patient. Sepsis focused exam is completed Time: 22:02 Reevaluation #2: Patient's CT angiography shows multifocal pneumonia as well as a small nonocclusive PE in the left lower lobe. I discussed this with the patient. She has already received broad-spectrum antibiotics, her blood pressure is improving with IV hydration. I will start her on Lovenox for the nonocclusive PE. The patient has no leg swelling or calf pain at this time. Time: 22:37 Reevaluation #3: Patient has remained persistently hypotensive despite adequate fluid hydration. She has been given albumin 25 g. I discussed with Dr. Strong, ICU attending, he recommends an additional L of IV fluids as the patient is young and healthy with no previous cardiac history or history of heart failure. We will start the patient on Levophed to increase the pressure. She is still mentating well. Unfortunately we have no ICU beds available. Time: 00:54 Additional Reevaluation(s): Patient's troponin was on repeat was noted to be elevated to 30.4, this is most likely related to her persistent tachycardia on arrival rather than acute ACS as her EKG is nonischemic. 1:45 a.m.. A bedside echo was performed showing hyperdynamic contractility of the left ventricle. The IVC was visualized that was compressible. There was no evidence of heart failure, we will give an additional L of fluids with lactated Ringer's Consultations Consultation #1: Dr. Vilchis's note: Patient remained in the emergency department monitored with Levophed drip to maintain her blood pressure, Levophed was weaned off at 9:45 blood pressure was in the mid 90s /mA P above 65, patient continue with antibiotic and albumin bolus. Patient told me that her normal blood pressure usually runs low patient stated that she feels good at her baseline tolerated p.o. intake and feels hungry. Case discussed with the hospitalist patient should be okay on the floor. will repeat troponin. Time: 11:35 Consultation #2: Blood pressure has been stable and of pressor only maintenance IV patient suddenly started to have worsening of shortness of breath and heavier breathing I went to the room to reassess the patient new rales to bilateral lung spencer have developed, patient O2 sat is deteriorating to 88%, all IV fluids was discontinued, nasal cannula was replaced by OxyMask, and patient is receiving Lasix. patient now feels much better with improvement of O2 sat. Patient now is inpatient under Dr. Johnson's care and the case was discussed with him who is evaluating the patient at the bedside. Patient overall feels better with improvement of vital signs. Time: 13:54 Medications Administered Generic Name Dose Route Start Last Admin Trade Name Freq PRN Reason Stop Dose Admin Norepinephrine Bitartrate 8 mg in 250 mls @ 0 mls/hr 05/23/24 01:00 05/23/24 09:47 Levophed IVCONT 0 mcg/kg/min .Q0M HARRIET 0 mls/hr Titration Protocol Per Protocol Discontinued Medications Generic Name Dose Route Start Last Admin Trade Name Cary PRN Reason Stop Dose Admin Acetaminophen 975 mg 05/22/24 20:05 05/22/24 20:17 Acetaminophen 325 Mg Tablet PO 05/22/24 20:06 975 mg ONCE ONE Administration Enoxaparin Sodium 60 mg 05/22/24 22:34 05/22/24 23:00 Enoxaparin Sodium 60 Mg/0.6 Ml Syringe 1 mg/kg (60 mg) 05/22/24 22:35 60 mg SUBCUT Administration ONCE ONE Fentanyl 50 mcg 05/23/24 01:14 05/23/24 01:16 Fentanyl Citrate/Pf 100 Mcg/2 Ml Vial IVPUSH 05/23/24 01:15 50 mcg ONCE ONE Administration Protocol Sodium Chloride 1,000 mls @ 999 mls/hr 05/22/24 20:15 05/22/24 21:18 Ns IV 05/22/24 21:15 Infused .Q1H1M HARRIET Infusion Ceftriaxone Sodium 1 gm/ 50 mls @ 100 mls/hr 05/22/24 20:13 05/22/24 21:01 Sodium Chloride IV 05/22/24 20:42 Infused ONCE ONE Infusion Azithromycin 500 mg/ Sodium 250 mls @ 125 mls/hr 05/22/24 20:13 05/22/24 23:43 Chloride IV 05/22/24 22:12 Infused ONCE ONE Infusion Sodium Chloride 1,000 mls @ 999 mls/hr 05/22/24 22:00 05/22/24 22:56 Ns IV 05/22/24 23:00 Infused .Q1H1M HARRIET Infusion Sodium Chloride 1,000 mls @ 999 mls/hr 05/22/24 22:15 05/23/24 00:05 Ns IV 05/22/24 23:15 Infused .Q1H1M HARRIET Infusion Albumin Human 100 mls @ 100 mls/hr 05/22/24 23:28 05/23/24 01:20 Kedbumin 25 % IV 05/23/24 00:27 Infused ONCE ONE Infusion Sodium Chloride 1,000 mls @ 999 mls/hr 05/23/24 01:00 05/23/24 01:56 Ns IV 05/23/24 02:00 Infused .Q1H1M HARRIET Infusion Lactated Ringer's 1,000 mls @ 999 mls/hr 05/23/24 01:45 05/23/24 03:05 Lr IV 05/23/24 02:45 Infused .Q1H1M HARRIET Infusion Lactated Ringer's 1,000 mls @ 100 mls/hr 05/23/24 03:00 05/23/24 02:57 Lr IVCONT 05/23/24 22:59 100 mls/hr .Q10H HARRIET Administration Ceftriaxone Sodium 1 gm/ 50 mls @ 100 mls/hr 05/23/24 11:28 05/23/24 11:47 Sodium Chloride IV 05/23/24 11:57 100 mls/hr ONCE ONE Administration Doxycycline Hyclate 100 mg/ 250 mls @ 166.67 mls/hr 05/23/24 11:28 05/23/24 13:03 Sodium Chloride IV 05/23/24 12:57 166.67 mls/hr ONCE ONE Administration Albumin Human 100 mls @ 100 mls/hr 05/23/24 11:30 05/23/24 11:40 Kedbumin 25 % IV 05/23/24 12:29 100 mls/hr ONCE ONE Administration Iohexol 100 ml 05/22/24 21:17 05/22/24 21:18 Iohexol 350 Mg/Ml 100 Ml Infus..Btl IV 05/22/24 21:18 65 ml ONCE ONE Administration Ketorolac Tromethamine 15 mg 05/22/24 20:05 05/22/24 20:16 Ketorolac Tromethamine 15 Mg/Ml Vial IVPUSH 05/22/24 20:06 15 mg ONCE ONE Administration Ketorolac Tromethamine 30 mg 05/23/24 02:52 05/23/24 02:55 Ketorolac Tromethamine 30 Mg/Ml Vial IVPUSH 05/23/24 02:53 30 mg ONCE ONE Administration Ondansetron HCl 4 mg 05/23/24 03:11 05/23/24 03:19 Ondansetron Hcl 4 Mg/2 Ml Vial IVPUSH 05/23/24 03:12 4 mg ONCE ONE Administration Medical Decision Making Medical Decision Making [facility] Narrative: 54-year-old female presents for evaluation of cough, shortness of breath. She is tachycardic to 130, she is tachypneic 24, her temperature is a 102.7?, [place] [address], she meets sepsis criteria and sepsis alert was called. I added on blood cultures, a lactic acid. She had a chest x-ray yesterday per her report, I ordered a CT angiography. A PE could potentially cause fever in addition to the tachycardia tachypnea. The patient is not hypoxic. Differential Diagnosis Differential Diagnoses: The differential diagnosis associated with the presentation includes Pneumonia Sepsis PE Bronchitis Viral syndrome Admission/Observation Consideration of admission/observation: Escalation of care including admission/observation considered Lab Data [facility] Lab Attestation statement: I reviewed the [place] [address], no significant anemia. Normal platelet count. Patient has a mild hyponatremia with a sodium of 134, this is treat with IV fluids. 05/23/24 06:09 05/22/24 18:29 Labs: Lab Results 05/22/24 05/22/24 05/23/24 Range/Units 18:29 20:10 01:04 WBC 17.0 H (4.8-10.8) X10*3/uL RBC 4.21 (4.20-5.50) X10*6/uL Hgb 12.2 (12.0-16.0) g/dl Hct 35.9 L (37.0-47.0) % MCV 85.3 (80.0-98.0) fL MCH 29.0 (27.0-33.0) pg MCHC 34.0 (31.0-35.0) g/dl RDW 13.2 (11.0-16.0) % Plt Count 243 (160-400) X10*3/uL MPV 9.5 (9.4-12.3) fL Immature Gran % (Auto) 0.8 H (0.0-0.4) % Neut % (Auto) 91.0 H (45-73) % Lymph % (Auto) 2.8 L (20-40) % [place] % (Auto) 4.8 (2-11) % Eos % (Auto) 0.1 (0-4) % Baso % (Auto) 0.5 (0-2) % Lymph # (Auto) 0.5 L (1.2-4.9) X10*3/uL [place] # (Auto) 0.8 (0.1-1.2) X10*3/uL Eos # (Auto) 0.0 (0.0-0.4) X10*3/uL Baso # (Auto) 0.1 (0.0-0.2) X10*3/uL Abs Immat Gran (auto) 0.13 H (0.00-0.03) X10*3/uL Absolute Neuts (auto) 15.5 H (2.0-8.3) x10*3/uL Absolute Nucleated RBC 0.000 (0.0-0.012) X10*3/uL Nucleated RBC % (auto) 0.0 (0.0-0.2) /100WBC Smear Tech's Comments VERIFIED PT 14.2 H (10.9-12.4) SEC INR 1.2 H (0.9-1.1) Sodium 134 L (135-145) mmol/L Potassium 3.3 (3.3-5.1) mmol/L Chloride 98 (96-108) mmol/L Carbon Dioxide 25 (22-29) mmol/L Anion Gap 14 (12-20) BUN 8 L (9-16) mg/dL Creatinine 0.84 (0.5-1.4) mg/dL Estim Creat Clear Calc 67.6 Estimated GFR > 60 Random Glucose 109 (60-115) mg/dL Lactic Acid 1.0 (0.5-2.0) mmol/L Calcium 9.1 (8.4-10.2) mg/dL Total Bilirubin 0.7 (0.0-1.0) mg/dL AST 26 (5-31) U/L ALT 26 (0-31) U/L Alkaline Phosphatase 77 (39-117) U/L Troponin I High Sens 8.9 30.7 H D (<3.5-17.0) ng/L B-Natriuretic Peptide 208 H (<100) pg/mL Total Protein 6.5 (6.5-8.0) g/dL Albumin 3.7 (3.5-5.0) g/dL Ethyl Alcohol 11 mg/dL Influenza Type A (PCR) NEGATIVE (Negative) Influenza Type B (PCR) NEGATIVE (Negative) RSV RNA Qual (PCR) NEGATIVE (Negative) SARS-CoV-2 RNA (RT-PCR) NEGATIVE (Negative) 05/23/24 Range/Units 06:09 WBC 18.5 H (4.8-10.8) X10*3/uL RBC 3.56 L (4.20-5.50) X10*6/uL Hgb 10.4 L (12.0-16.0) g/dl Hct 30.5 L (37.0-47.0) % MCV 85.7 (80.0-98.0) fL MCH 29.2 (27.0-33.0) pg MCHC 34.1 (31.0-35.0) g/dl RDW 13.4 (11.0-16.0) % Plt Count 215 (160-400) X10*3/uL MPV 9.8 (9.4-12.3) fL Immature Gran % (Auto) (0.0-0.4) % Neut % (Auto) (45-73) % Lymph % (Auto) (20-40) % [place] % (Auto) (2-11) % Eos % (Auto) (0-4) % Baso % (Auto) (0-2) % Lymph # (Auto) (1.2-4.9) X10*3/uL [place] # (Auto) (0.1-1.2) X10*3/uL Eos # (Auto) (0.0-0.4) X10*3/uL Baso # (Auto) (0.0-0.2) X10*3/uL Abs Immat Gran (auto) (0.00-0.03) X10*3/uL Absolute Neuts (auto) (2.0-8.3) x10*3/uL Absolute Nucleated RBC 0.000 (0.0-0.012) X10*3/uL Nucleated RBC % (auto) 0.0 (0.0-0.2) /100WBC Smear Tech's Comments PT (10.9-12.4) SEC INR (0.9-1.1) Sodium (135-145) mmol/L Potassium (3.3-5.1) mmol/L Chloride (96-108) mmol/L Carbon Dioxide (22-29) mmol/L Anion Gap (12-20) BUN (9-16) mg/dL Creatinine (0.5-1.4) mg/dL Estim Creat Clear Calc Estimated GFR Random Glucose (60-115) mg/dL Lactic Acid (0.5-2.0) mmol/L Calcium (8.4-10.2) mg/dL Total Bilirubin (0.0-1.0) mg/dL AST (5-31) U/L ALT (0-31) U/L Alkaline Phosphatase (39-117) U/L Troponin I High Sens (<3.5-17.0) ng/L B-Natriuretic Peptide (<100) pg/mL Total Protein (6.5-8.0) g/dL Albumin (3.5-5.0) g/dL Ethyl Alcohol mg/dL Influenza Type A (PCR) (Negative) Influenza Type B (PCR) (Negative) RSV RNA Qual (PCR) (Negative) SARS-CoV-2 RNA (RT-PCR) (Negative) Independent Interpretation I performed an independent interpretation of an: EKG and CT Scan (Agree with Radiology interpretation) Interpretation: Sinus tachycardia rate of 134 beats per minute Radiology Impression Discussion of test interpretation with radiology: I have reviewed the radiologist's reading. Radiologist Impression: CT/CT angio chest PE protocol IMPRESSION: 1. Nonocclusive acute pulmonary embolus within the left lower lobe segmental branch. 2. Lingular and left lower lobe pneumonia. Critical Care Time Critical Care Time Critical Care Time: Yes Total Critical Care Time: 75 Attestation: 54-year-old female presents for evaluation of cough, shortness of breath, fevers. She was found to have septic shock in the setting of multifocal pneumonia as well as nonocclusive PE. Discharge Plan Discharge Clinical Impression: Multifocal pneumonia, Pulmonary embolism, Sepsis Patient Disposition: Admitted As Inpatient
--- OUTSIDE RECORDS SUMMARY | 2024-05-22 18:35 | XMS_ITS | Continuity of Care Document ---
Author Organization [facility] Address [address] [place] [address], [address] [address]- Care Team Providers Care Tiller Man Name Role Phone Not on Staff, PCP Primary Care Physician Unavail able [place] [facility] [place] Date(s): 11/07/23 - 12/07/23 [facility] Nestortaurus BenjaminWUTs [facility] [address] [facility], [address] [place], [place] [address] Attending Physician: Charmaine Rapp Admitting Physician: AdmCharmaine sheffield Referring Physician: Admtr, Ar8 Allergies, Adverse Reactions, Alerts No Known Allergies Medications Albuterol (Eqv-ProAir HFA) 90 mcg/inh inhalation aerosol 0 Refills, Maintenance, 09/01/23 7:15:00 EST, Partial fill upon patient request if the prescriptionis for a schedule II opioid drug. Start Date: 09/01/23 Status: Ordered Augmentin 875 mg-125 mg oral tablet 0 Refills, Maintenance, 09/01/23 7:15:00 EST, Partial fill upon patient request if the prescriptionis for a schedule II opioid drug. Start Date: 09/01/23 Status: Ordered benzonatate 100 mg oral capsule 0 Refills, Maintenance, 09/01/23 7:15:00 EST, Partial fill upon patient request if the prescriptionis for a schedule II opioid drug. Start Date: 09/01/23 Status: Ordered buPROPion 300 mg/24 hours (XL) oral tablet, extended release 0 Refills, Maintenance, 09/01/23 7:15:00 EST, Partial fill upon patient request if the prescriptionis for a schedule II opioid drug. Start Date: 09/01/23 Status: Ordered BUPROPION HCL XL 300 MG TABLET BUPROPION HCL XL 300 MG TABLET, 0 Refills, Maintenance, 09/01/23 7:15:00 EST Start Date: 09/01/23 Status: Ordered fluconazole 150 mg oral tablet 0 Refills, Maintenance, 09/01/23 7:15:00 EST, Partial fill upon patient request if the prescriptionis for a schedule II opioid drug. Start Date: 09/01/23 Status: Ordered FLUoxetine 40 mg oral capsule 0 Refills, Maintenance, 09/01/23 7:15:00 EST, Partial fill upon patient request if the prescriptionis for a schedule II opioid drug. Start Date: 09/01/23 Status: Ordered hydrOXYzine hydrochloride 25 mg oral tablet 1 tablet = 25 mg, By Mouth, 4 times a day, PRN for anxiety, # 40 tablet, 0 Refills, Maintenance, 05/04/21 13:30:00 EDT, Tablet, [id number], Partial fill upon patient request if the prescription is for a schedule II opioid drug. Start Date: 05/04/21 Status: Ordered predniSONE 20 mg oral tablet 0 Refills, Maintenance, 09/01/23 7:15:00 EST, Partial fill upon patient request if the prescriptionis for a schedule II opioid drug. Start Date: 09/01/23 Status: Ordered PROzac 40 mg oral capsule 1 capsule = 40 mg, By Mouth, Daily, # 30 capsule, 0 Refills, Maintenance, 05/04/21 13:29:00 EDT, Capsule, [id number], Partial fill upon patient request if the prescription is for a schedule II opioid drug. Start Date: 05/04/21 Status: Ordered Wellbutrin XL 300 mg/24 hours oral tablet, extended release 1 tablet = 300 mg, By Mouth, Daily, # 30 tablet, 0 Refills, Maintenance, 05/04/21 13:29:00 EDT, ER Tablet, [id number], Partial fill upon patient request if the prescription is for a schedule II opioid drug. Start Date: 05/04/21 Status: Ordered Problem List Condition Confirmation Course Effective Dates Status H ealth Status Informant COVID-19 1 Confirmed 09/01/23 Active Depression Confirmed Active Women's annual routine gynecological examination Confirmed Active Suicidal ideation Confirmed Active 1Problem added by Discern Expert Social History Social History Type Response Smoking Status Former smoker; Type: Cigarettes; Other: Quit 5 years ago; entered on: 02/23/18 Sex Patient Care team information Care Team Personnel Name: Not on Staff, PCP Position: S Physician (General Medicine) Member Role: PCP Care Team Related Persons Name: CHIO CONLEY Address: [place] [address] Name: PREM RESENDEZ Address: [address] [address]
--- OUTSIDE RECORDS SUMMARY | 2024-05-22 18:35 | XMS_ITS | Continuity of Care Document ---
Author Organization [facility]or [employer] Address [address] [place] [address], 4[place] [address]- Care Team Providers Care Rn Palliative Care Name Role Phone Chepe Higgins MD Primary Care Physician Encounter [facility] ACCT R [id number] Date(s): 10/28/19 - 11/07/19 [facility]amitaurus BenjaminValmarc [address] [facility], [address] [place] [address]- Attending Physician: Charmaine Rapp Admitting Physician: Charmaine Rapp Referring Physician: Charmaine Rapp Allergies, Adverse Reactions, Alerts Substance Reaction Severity Status NKA Active Medications fluconazole 150 mg oral tablet 1 tablet = 150 mg, By Mouth, Once, Once, may repeat in 72 hours, # 2 tablet, 0 Refills, Soft Stop, 03/30/19 15:53:17 EDT, Tablet Start Date: 03/30/19 Status: Ordered PROzac 40 mg oral capsule 1 capsule = 40 mg, By Mouth, Daily, # 30 capsule, 0 Refills, Maintenance, 02/23/18 8:13:38 EDT, Capsule Start Date: 02/23/18 Status: Ordered Wellbutrin XL 300 mg/24 hours oral tablet, extended release 1 tablet = 300 mg, By Mouth, Daily, # 30 tablet, 0 Refills, Maintenance, 02/23/18 8:13:29 EDT, ER Tablet Start Date: 02/23/18 Status: Ordered Problem List Condition Effective Dates Status Health Status Inform ant Depression(Confirmed) Active Women's annual routine gynec ological examination(Confirmed) Active Social History Social History Type Response Smoking Status Former smoker; Type: Cigarettes; Other: Quit 5 years ago; entered on: 02/23/18 Sex
--- OUTSIDE RECORDS SUMMARY | 2024-05-22 18:35 | XMS_ITS | Continuity of Care Document ---
Author Organization [facility] ter Address [address] [place] [address]- Care Team Providers Care Advanced Research Programs Director Name Role Phone Not on Staff, PCP Primary Care Physician Unavail able [place] [facility] [place] Date(s): 11/20/21 - 11/21/[address] [address]- Encounter Diagnosis Alcohol use with withdrawal(Final) - 11/21/21 Discharge Disposition: A-D/C Home Attending Physician: Dash Perez MD Admitting Physician: Dash Perez MD Referring Physician: Not on Staff, Referring MD Allergies, Adverse Reactions, Alerts No Known Allergies Medications fluconazole 150 mg oral tablet 1 tablet = 150 mg, By Mouth, Once, Once, may repeat in 72 hours, # 2 tablet, 0 Refills, Soft Stop, 12/14/19 11:18:00 EDT, Tablet, [id number] Start Date: 12/14/19 Status: Ordered hydrOXYzine hydrochloride 25 mg oral tablet 1 tablet = 25 mg, By Mouth, 4 times a day, PRN for anxiety, # 40 tablet, 0 Refills, Maintenance, 05/04/21 13:30:00 EDT, Tablet, [id number], Partial fill upon patient request if the prescription is for a schedule II opioid drug. Start Date: 05/04/21 Status: Ordered PROzac 40 mg oral capsule 1 capsule = 40 mg, By Mouth, Daily, # 30 capsule, 0 Refills, Maintenance, 05/04/21 13:29:00 EDT, Capsule, [id number], Partial fill upon patient request if the prescription is for a schedule II opioid drug. Start Date: 05/04/21 Status: Ordered PROzac 40 mg oral capsule 1 capsule = 40 mg, By Mouth, Daily, # 30 capsule, 0 Refills, Maintenance, 02/23/18 8:13:38 EDT, Capsule Start Date: 02/23/18 Status: Ordered Wellbutrin XL 300 mg/24 hours oral tablet, extended release 1 tablet = 300 mg, By Mouth, Daily, # 30 tablet, 0 Refills, Maintenance, 05/04/21 13:29:00 EDT, ER Tablet, [id number], Partial fill upon patient request if [...] Women's annual routine gynec ological examination(Confirmed) Active Suicidal ideation(Confirmed) Active Vital Signs Most recent to oldest [Reference Range]: 1 2 Oxygen Saturation [94-100 %] 97 % (11/21/21 3:42 AM) 96 % (11/20/21 11:37 PM) Pulse Rate [55-90 bpm] 88 bpm (11/21/21 3:42 AM) 93 bpm *H* (11/20/21 11:37 PM) Blood Pressure [90-138/55-84 mm Hg] 124/ 84mm Hg (11/21/21 3:42 AM) 117/77mm Hg (11/20/21 11:37 PM) Respiratory Rate [16-30 br/min] 16 br/mi n (11/21/21 3:42 AM) 18 br/min (11/20/21 11:37 PM) Temperature [96.8-100.4 DegF] 98.0 DegF (11/21/21 3:42 AM) 98.7 DegF (11/20/21 11:37 PM) Mode of Delivery (Oxygen) Room air (11/21/21 3:42 AM) Room air (11/20/21 11:37 PM) Temperature Route Oral (11/21/21 3:42 AM) Oral (11/20/21 11:37 PM) Social History Social History Type Response Smoking Status Former smoker; Type: Cigarettes; Other: Quit 5 years ago; entered on: 02/23/18 Sex
--- OUTSIDE RECORDS SUMMARY | 2024-05-22 18:35 | XMS_ITS | Continuity of Care Document ---
Author Organization [facility] Address [address] [place] [address], 4[place], [place] [address]- Care Team Providers Care Assembler Flexible Leads Name Role Phone Gisela CLARK, Chepe Gupta Primary Care Physician Encounter [facility] [place] Date(s): 06/26/22 - 07/26/22 [facility] Nestor BenjaminPodPonicss [facility] [address] [facility], [address]th [place] [address]- Allergies, Adverse Reactions, Alerts No Known Allergies Medications hydrOXYzine hydrochloride 25 mg oral tablet 1 [...] Effective Dates Status H ealth Status Informant Depression Confirmed Active Women's annual routine gynecological examination Confirmed Active Suicidal ideation Confirmed Active Social History Social History Type Response Smoking Status Former smoker; Type: Cigarettes; Other: Quit 5 years ago; entered on: 02/23/18 Sex Patient Care team information Care Team Personnel Name: Chepe Higgins MD Position: Reference Physician Member Role: PCP Address: Address: [address] [place] [address] [address] [place] [address]- Care Team Related Persons Name: CHIO CONLEY Address: home [address] [place], [place] [id number] Name: FAUSTINO RESENDEZ Address: home [address] [place] [address]
--- OUTSIDE RECORDS SUMMARY | 2024-05-22 18:35 | XMS_ITS | Continuity of Care Document ---
Author Organization [facility] Address [address] [place] [address], 4[place] [address]- Care Team Providers Care Software Development Test Engineer Name Role Phone Gisela CLARK, Chepe Gupta Primary Care Physician [place] [facility] [place] 06/14/22 - 07/14/22 [facility] Nestor Dials [facility] [address] [facility], [address] [place] [address]- Allergies, Adverse Reactions, Alerts No Known Allergies [...] Reference Physician Member Role: PCP Address: Address: [address] [place] [address] [address] [place] [address]- Care Team Related Persons Name: CHIO CONLEY Address: home [address] [place], [place] [id number] Name: FAUSTINO RESENDEZ Address: home [address] [place] [address]
--- OUTSIDE RECORDS SUMMARY | 2024-05-22 18:35 | XMS_ITS | Continuity of Care Document ---
Author Organization [facility] ter Address [address] [place] [address]- Care Team Providers Care Low Voltage Electrician Name Role Phone Gisela CLARK, Chepe Gupta Primary Care Physician [phone] Encounter [facility] Date(s): 03/18/20 - 03/19/[address] [address]- [place] Encounter Diagnosis Suicidal ideation(Final) - 03/18/20 Discharge Disposition: A-D/C Home Attending Physician: Ema Valdovinos DO Admitting Physician: Ema Valdovinos DO Referring Physician: Not on Staff, Referring MD Allergies, Adverse Reactions, Alerts Substance Reaction Severity Status NKA Active Medications fluconazole 150 mg oral tablet 1 tablet = 150 mg, By Mouth, Once, Once, may repeat in 72 hours, # 2 tablet, 0 Refills, Soft Stop, 12/14/19 11:18:00 EDT, Tablet, [id number] Start Date: 12/14/19 Status: Ordered PROzac 40 mg oral capsule [...] Range]: 1 2 Oxygen Saturation [94-100 %] 99 % (03/19/20 6:38 AM) 99 % (03/18/20 10:15 PM) Pulse Rate [55-90 bpm] 89 bpm (03/19/20 6:38 AM) 86 bpm (03/18/20 10:15 PM) Blood Pressure [90-138/55-84 mm Hg] 131/ 58mm Hg (03/19/20 6:38 AM) 111/70mm Hg (03/18/20 10:15 PM) Respiratory Rate [16-30 br/min] 16 br/mi n (03/19/20 6:38 AM) 16 br/min (03/18/20 10:15 PM) Temperature [96.8-100.4 DegF] 98.2 DegF (03/19/20 6:38 AM) 98.4 DegF (03/18/20 10:15 PM) Mode of Delivery (Oxygen) Room air (03/19/20 6:38 AM) Room air (03/18/20 10:15 PM) Blood pressure sites Arm, left (03/18/20 10:15 PM) Temperature Route Oral (03/19/20 6:38 AM) Oral (03/18/20 10:15 PM) Social History Social History Type Response Smoking Status Former smoker; Type: Cigarettes; Other: Quit 5 years ago; entered on: 02/23/18 Sex
--- OUTSIDE RECORDS SUMMARY | 2024-05-22 18:35 | XMS_ITS | Continuity of Care Document ---
Author Organization [facility] Carol becker's [facility] Address [address] [facility], 4t [place] [address]- Care Team Providers Care Speeder Hand Name Role Phone Gisela CLARK, Chepe Gupta Primary Care Physician [place] [facility] [place] 07/17/20 - 08/16/20 [facility] Nestor BenjaminSureWavess [facility] [address] [facility], [address] [place], [place] [address] Attending Physician: Charmaine Rapp Admitting Physician: Charmaine Rapp Referring Physician: AdmtrCharmaine Allergies, Adverse Reactions, Alerts Substance Reaction Severity [...] gynec ological examination(Confirmed) Active Suicidal ideation(Confirmed) Active Social History Social History Type Response Smoking Status Former smoker; Type: Cigarettes; Other: Quit 5 years ago; entered on: 02/23/18 Sex
--- OUTSIDE RECORDS SUMMARY | 2024-05-22 18:35 | XMS_ITS | Continuity of Care Document ---
Author Organization [facility] [employer] [employer] Address [address] [facility], 4t [place] [address]- Care Team Providers Care Fruit Stuffer Name Role Phone Gisela CLARK, Chepe Gupta Primary Care Physician [place] [facility] [place]/20 - [facility] [address] [facility], [address] [place] [address]- [facility] Allergies, Adverse Reactions, Alerts Substance Reaction Severity [...]
--- OUTSIDE RECORDS SUMMARY | 2024-05-22 18:35 | XMS_ITS | Continuity of Care Document ---
Author Organization [facility] [employer] Address [address] [facility], 4t [place] [address]- Care Team Providers Care Supervisor Newspaper Deliveries Name Role Phone Gisela CLARK, Chepe Gupta Primary Care Physician [place] [facility] [place]s): 12/02/19 - 03/31/20 [facility] [address] [facility], [address] [place] [address]- [facility] Attending Physician: Erika Patel MD Allergies, Adverse Reactions, Alerts Substance Reaction [...]
--- OUTSIDE RECORDS SUMMARY | 2024-05-22 18:35 | XMS_ITS | Continuity of Care Document ---
Author Organization [facility] Nestor beckerMoni Technologiess [facility] Address [address] [place] [address], [place] [address]- Care Team Providers Care Road Oiler Name Role Phone Not on Staff, PCP Primary Care Physician Unavail able En[place] [facility] [place]CT R [id number] Date(s): 11/07/23 - 11/14/23 [facility] [place] Dam[facility] BenjaminMoni [employer]olog[employer] [address] [place] [address], [address] [place] [address]- Attending Physician: Ethel Guerrier MD Referring Physician: Not on Staff, Referring [...] Personnel Name: Not on Staff, PCP Position: [facility] Physician (General Medicine) Member Role: PCP Care Team Related Persons Name: CHIO CONLEY Address: [place] [address] Name: PREM RESENDEZ Address: [address] [address]
--- OUTSIDE RECORDS SUMMARY | 2024-05-22 18:35 | XMS_ITS | Continuity of Care Document ---
Author Organization [facility] Address [address] [place] [address], 4t [place] [address]- Care Team Providers Care Shipyard Helper Name Role Phone Chepe Higgins MD Primary Care Physician [id number]25[facility] - 11/26/19 [facility] [employer] [address] [facility], [address] [place] [address]- Attending Physician: Not on Staff, Attending MD Referring Physician: Chepe Higgins MD Allergies, Adverse Reactions, Alerts Substance Reaction [...]
--- OUTSIDE RECORDS SUMMARY | 2024-05-22 18:35 | XMS_ITS | Continuity of Care Document ---
Author Organization [facility] ter Address [address] [place] [address]- Care Team Providers Care Technology Professional Name Role Phone Chepe Higgins MD Primary Care Physician [phone] [facility] [place] Date(s): 10/26/23 - 10/27/[address] [address]- Discharge Disposition: Transfer to [facility] Facility Attending Physician: Ema Valdovinos DO Admitting Physician: [...] Confirmed Active 1Problem added by Discern Expert Vital Signs Most recent to oldest [Reference Range]: 1 2 3 Height 163 cm (10/27/23 8:32 AM) 163 cm (10/27/23 4:36 AM) 163 cm (10/26/23 5:24 PM) Oxygen Saturation [94-100 %] 100 % (10/27/23 12:30 PM) 97 % (10/27/23 8:32 AM) 98 % (10/27/23 4:36 AM) Pulse Rate [55-90 bpm] 99 bpm *H* (10/27/23 12:30 PM) 86 bpm (10/27/23 8:44 AM) 86 bpm (10/27/23 8:32 AM) Blood Pressure [90-138/55-84 mm Hg] 133/84mm Hg (10/27/23 12:30 PM) 122/72mm Hg (10/27/23 8:44 AM) 122/72mm Hg (10/27/23 8:32 AM) Respiratory Rate [16-30 br/min] 16 br/min (10/27/23 12:30 PM) 18 br/min (10/27/23 8:44 AM) 18 br/min (10/27/23 8:32 AM) Temperature [96.8-100.4 DegF] 98.3 DegF (10/27/23 12:30 PM) 98.3 DegF (10/27/23 8:32 AM) 98.5 DegF (10/27/23 4:36 AM) Mode of Delivery (Oxygen) Room air (10/27/23 12:30 PM) Room air (10/27/23 4:36 AM) Room air (10/26/23 10:59 PM) Blood pressure sites Arm, left (10/27/23 12:30 PM) Arm, right (10/27/23 8:32 AM) Arm, right (10/27/23 4:36 AM) Temperature Route Oral (10/27/23 12:30 PM) Oral (10/27/23 8:32 AM) Oral (10/27/23 4:36 AM) Dry Weight 63.4 kg (10/27/23 8:32 AM) 63.4 kg (10/27/23 4:36 AM) 63.4 kg (10/26/23 5:24 PM) Dry Weight Obtained Via Patient/family s tated (10/26/23 4:54 PM) Social History Social History Type Response Smoking Status Former smoker; Type: Cigarettes; Other: Quit 5 years ago; entered on: 02/23/18 Sex Patient Care team information Care Team Personnel Name: Gisela CLARK, Chepe Gupta Position: Reference Physician Member Role: PCP Address: Address: [address] [place] [address] [address] [place] [address]- Care Team Related Persons Name: CHIO CONLEY Address: home [address] [place] [address] Name: FAUSTINO RESENDEZ Address: home [address] [place] [address]
[2024-05-22 18:36] LABS: Basophils Absolute Auto 0.1 X10*3/uL (0.0-0.2); Basophils Percent Auto 0.5 % (0-2); Eosinophils Percent Auto 0.1 % (0-4); Hematocrit 35.9 % (37.0-47.0); Hemoglobin 12.2 g/dl (12.0-16.0); Imm Gran Abs Auto 0.13 X10*3/uL (0.00-0.03); Imm Gran Pct Auto 0.8 % (0.0-0.4); Lymphocytes Absolute Auto 0.5 X10*3/uL (1.2-4.9); Lymphocytes Percent Auto 2.8 % (20-40); MANUAL DIFF FLAG SCAN; Mean Corpuscular Volume 85.3 fL (80.0-98.0); Mean Platelet Volume 9.5 fL (9.4-12.3); Monocytes Absolute Auto 0.8 X10*3/uL (0.1-1.2); Monocytes Percent Auto 4.8 % (2-11); Neutrophils Absolute Auto 15.5 x10*3/uL (2.0-8.3); Platelet Count 243 X10*3/uL (160-400); Red Blood Count 4.21 X10*6/uL (4.20-5.50); Red Cell Distribution Width 13.2 % (11.0-16.0); SCAN SMEAR FLAG 1
--- OUTSIDE RECORDS SUMMARY | 2024-05-22 18:36 | XMS_ITS | Continuity of Care Document ---
Author Organization [facility] Carol beckerTOK.tvs [facility] Address [address] [facility], [address] [address]- Care Team Providers Care Computational Sciences Professor Name Role Phone Not on Staff, PCP Primary Care Physician Unavail able [place] [facility] [place] - 02/20/24 [facility] Rut[facility] BenjaminTOK.tvs [facility] [address] [facility], [address] [place] [address]- Attending Physician: Charmaine Rapp Admitting Physician: Charmaine Rapp Referring Physician: AdmCharmaine sheffield Allergies, Adverse Reactions, Alerts No Known Allergies [...] Team Related Persons Name: CHIO CONLEY Address: [place] [id number] Name: PREM RESENDEZ Address: home [address] [place] [address]
--- OUTSIDE RECORDS SUMMARY | 2024-05-22 18:36 | XMS_ITS | Continuity of Care Document ---
Author Organization [facility] ter Address [address] [place] [address]- Care Team Providers Care Woolen Tester Name Role Phone Chepe Higgins MD Primary Care Physician [phone] Encounter [facility] [place] Date(s): 08/31/23 - 09/01/[address] [address]- Encounter Diagnosis Acute COVID-19(Final) - 08/31/23 Discharge Disposition: A-D/C Home Attending Physician: Soledad Stovall MD Admitting Physician: Soledad Stovall MD Referring Physician: Not on Staff, Referring [...] to oldest [Reference Range]: 1 2 3 Oxygen Saturation [94-100 %] 100 % (09/01/23 12:34 PM) 99 % (09/01/23 9:18 AM) 100 % (09/01/23 6:23 AM) Pulse Rate [55-90 bpm] 74 bpm (09/01/23 12:34 PM) 72 bpm (09/01/23 6:23 AM) 91 bpm *H* (09/01/23 1:49 AM) Blood Pressure [90-138/55-84 mm Hg] 110/78mm Hg (09/01/23 12:34 PM) 109/68mm Hg (09/01/23 9:18 AM) 121/78mm Hg (09/01/23 6:23 AM) Respiratory Rate [16-30 br/min] 17 br/min (09/01/23 12:34 PM) 16 br/min (09/01/23 9:18 AM) 16 br/min (09/01/23 6:23 AM) Temperature [96.8-100.4 DegF] 98.4 DegF (09/01/23 6:23 AM) 98.4 DegF (09/01/23 1:49 AM) 97.9 DegF (08/31/23 9:55 PM) Mode of Delivery (Oxygen) Room air (09/01/23 12:34 PM) Room air (09/01/23 9:18 AM) Room air (09/01/23 6:23 AM) Blood pressure sites Arm, right (09/01/23 12:34 PM) Arm, right (09/01/23 9:18 AM) Arm, left (09/01/23 1:49 AM) Temperature Route Oral (09/01/23 6:23 AM) Oral (09/01/23 1:49 AM) Oral (08/31/23 9:55 PM) Social History Social History Type Response Smoking Status Former smoker; Type: Cigarettes; Other: Quit 5 years ago; entered on: 02/23/18 Sex Note * Soledad Stovall MD: PERFORM Event Display: Patient Education Leaflets Authored Date: [id number] Alcohol Intoxication ?? [id number] Alcohol Intoxication Alcohol intoxication is very serious. It occurs when you drink alcohol faster than your liver can break it down. Severe intoxication is a medical emergency. It's also called alcohol overdose or alcohol poisoning. It can lead to . Here are some mckeon facts: ??? It can take 10 minutes or more??to start??to??feel the effects of a drink. So it's easy to drink more than you planned. Binge drinking can lead to an alcohol overdose. Binge drinking is having: o5 or more drinks over a short time for men o 4 or more drinks over a short time for women ??? One drink may be more than 1 serving of alcohol. In some cases, a drink can be 2 to 4 servings. This depends on the type of drink. ??? It takes about 1 hour for your body to break down 1 serving of alcohol. If you have more than 1 drink, it can take a few hours or more. ??? People with alcohol abuse disorders are more likely to get alcohol poisoning. But it can happen to anyone who drinks too much alcohol. Even a first-time drinker is at risk. ??? Many things affect how drinks will affect you. These include: o If you've eaten o How fast you drink o Your weight o How much you normally drink (or not)o Medicines you are taking o If you have a chronic disease o If you are male or female o How old you are Symptoms of alcohol intoxication Mild intoxication ??? Feel more relaxed, less tense ??? Slightly slurred speech ??? Sleepiness ??? Poor motor skills Moderate intoxication ??? Changing behavior, aggression, depression ??? Poor judgment ??? Confusion ??? Trouble focusing ??? Poor balance and coordination ??? Worsening slurred speech Severe intoxication ??? Vomiting ??? Seizures ??? Fainting or passing out (unconscious) ??? Cold, clammy skin ??? Slow or irregular breathing ??? Low body temperature (hypothermia) ??? Coma ?? Health effects Alcohol causes health problems.??This can happen after only drinking a little. There is no set number of drinks or amount of alcohol that's too much.??How much you drink at one time affects your health. And so does drinking often. Alcohol affects your whole body in these ways: ??? Brain.??Alcohol can harm parts of the brain that affect your balance, memory, thinking, and feelings. It can cause memory loss, blackouts, depression, agitation, sleep cycle changes, and seizures. These changes may or may not go away. ??? Heart and vascular system.??Alcohol can damage heart muscle. This can cause the heart muscle to weaken and stretch (cardiomyopathy). This can lead to: o Trouble breathing o Irregular heartbeat o Atrial fibrillation o Leg swelling o Heart failure Alcohol also makes the blood vessels stiffen. This causes high blood pressure. All of these problems raise your risk for heart attacks or strokes. ??? Liver.??Alcohol causes fat to build up in the liver. This affects how the liver works. And it raises the risk for hepatitis. This condition leads to belly pain, appetite loss, yellow skin and eyes (jaundice), and bleeding problems. It also leads to harmful changes in the liver. These include??liver fibrosis and cirrhosis. This can affect your ability to fight off infections. These liver changes stop it from removing toxins in your blood. This can cause a brain disease called encephalopathy. ??? Pancreas.??Alcohol can cause inflammation of the pancreas (pancreatitis). It can lead to belly pain, fever, and diabetes. ??? Immune system.??Alcohol weakens your immune system. This makes it harder to fight off infections and colds. You'll also have a higherrisk of some infections. ??? Cancer risk.??Alcohol raises your risk of some types of cancer. They include cancer of the: o Mouth o Esophagus o Pharynx o Larynx o Liver o Breast ? Sexual function.??Alcohol abuse can also lead to sexual problems. There is no safe level of alcohol use for people who are or thinking of getting . Alcohol use in may cause lifelong harm to the baby. So alcohol should be avoided. It can also cause a group of defects called alcohol spectrum disorder. These defects can include physical problems. And also behavior and learning problems. ?? Home care for alcohol intoxication Follow these tips to care for yourself at home: ??? Don't drink any more alcohol. ??? Don't drive??until all effects of the alcohol have worn off. ??? Don't use machinery that can cause injuries. ??? Get lots of rest over the next few days. ??? Drink plenty of water and other drinks that don't have alcohol. ??? Try to eat regular meals. If you have been drinking a lot every day, you may have alcohol withdrawal. Symptoms often last 3 to 4 days. They may include: ??? Nervousness ??? Shakiness ??? Nausea ??? Sweating ??? Sleeplessness They may also include severe, life-threatening symptoms. These are known as delirium tremens (DTs).DTs typically begin between 48 and 96 hours after the last drink and last 1 to 5 days. They include: ??? Seizures ??? Confusion ??? Seeing or hearing things that are not there (hallucinations) Alcohol withdrawal can cause . Call your healthcare provider before you stop drinking. This isespecially important if you've had DTs during past alcohol withdrawals. They may be able to help you with medicine. They can also refer you to an inpatient detox program. Or stay with family or friends who know when to call for medical help and can support you. If you have severe symptoms, call your provider or call 911 for help (see below). ?? Follow-up care These groups can help you and your loved one: ??? Alcoholics Anonymous (A.A.). Gives support through a self-help fellowship. ?? Find A.A. meetings near you at www.aa.org. ??? Al-Anon. ?? Gives support to families at www.al-anon.org . Or call 968-368-5103. ??? SMART Recovery ( Self- Management and Recovery Training). A nationwide abstinence-oriented support group for people with addictive issues. This free program is focused on motivation to change, urge control, and living a balanced life. For more information and meetings near you, go to www.Lendinero.org/ ??? Substance Abuse and Mental Health Services Administration (SAMHSA) Treatment [place]. Free information on treatment resources in your area at https://findtreatment.gov/. Or call 121-816-9988. Call 911 Call 911 if any of these occur: ??? Trouble breathing or slow irregular breathing ??? Chest pain ??? Sudden weakness on 1 side of your body or sudden trouble speaking ??? Heavy bleeding or vomiting blood ??? Very sleepy or having trouble waking up ??? Fainting ??? Fast heart rate ??? Seizure ?? When to get medical advice Call your healthcare provider right away if any of these occur: ??? Severe shakiness? Fever of100.4??F (38??C) or higher, or as advised by your provider ??? Confusion or hallucinations ??? Painin your upper belly that gets worse ??? Repeated vomiting ?? Last Reviewed Date: 2021 ?? 4765-0365 [employer]. All rights reserved. This information is not intended as a substitute for professional medical care. Always follow your healthcare professional's instructions. ?? * Soledad Stovall MD: PERFORM Event Display: Patient Education Leaflets Authored Date: Understanding Coronavirus Disease 2019 COVID-19 ?? 323 Understanding Coronavirus Disease 2019 (COVID-19) Coronavirus disease 2019 (COVID-19) is a respiratory illness. It's caused by a new (novel) coronavirus called SARS-CoV-2. There are many types of coronavirus. Coronaviruses are a very common cause ofbronchitis. They may sometimes cause lung infection (pneumonia). Symptoms can range from mild to severe respiratory illness. These viruses are also found in some animals. COVID-19 was first found in people in [facility], in late 2019. In 2020, several cases of COVID-19 have been confirmed in the [place] COVID-19 is a rapidly- emerging infectious disease. This means that scientists are actively researching it.??There are information updates regularly. Public health officials are working to find the source. How the virus spreads is not yet fully understood, but it seems to spread and infect people fairly easily. Some people who have been infected in an area may be unsure how or where they became infected. The virus may be spread through droplets of fluid that a person coughs or sneezes into the air. It may be spread if you touch a surface with virus on it, such as a handle or object, and then touch your eyes, nose, or mouth. For the latest information, visit the CDC website at www.cdc.gov/coronavirus/2019-ncov. Or call 391-QJL-EYYM (422-408-9347). What are the symptoms of COVID-19? Some people have no symptoms or mild symptoms. Symptoms may appear 2 to 14 days after contact with the virus. Symptoms can include: ??? Fever ??? Coughing ??? Trouble breathing What are possible complications from COVID-19? In many cases, this virus can cause infection (pneumonia) in both lungs. In some cases, this can cause . Certain people are at higher risk for complications. This includes older adults and people with serious chronic health conditions such as heart or lung disease or diabetes. How is COVID-19 diagnosed? Your healthcare provider will ask about your symptoms. He or she will also ask about your recent travel and contact with sick people. If your healthcare provider thinks you may have COVID-19, he or she will work closely with your local health department on testing. Follow all instructions from yourhealthcare provider. COVID-19 is diagnosed by: ??? Nose and throat swab. A cotton-tipped swab is wiped inside your nose or throat. This is done tocheck for viruses in your nasal mucus. ??? Sputum culture. A small sample of mucus coughed from your lungs (sputum) is collected if you have a cough. It's checked for the virus. How is COVID-19 treated? There is currently no medicine to treat the virus. Treatment is done to help your body while it fights the virus. This is known as supportive care. Supportive care may include: ??? Pain medicine. These include acetaminophen and ibuprofen. They are used to help ease pain and reduce fever. ??? Bed rest. This helps your body fight the illness. For severe illness, you may need to stay in the hospital. Care during severe illness may include: ??? IV (intravenous) fluids. These are given through a vein to help keep your body hydrated. ??? Oxygen. Supplemental oxygen or ventilation with a breathing machine (ventilator) may be given. This isdone so you get enough oxygen in your body. Are you at risk for COVID-19? You are at risk for infection if you ???ve been to a place where people have been sick with this virus or if there are people with COVID-19 in your area. You are at risk if you: ??? Recently traveled to an area with a COVID-19 outbreak ??? Had contact with a sick person who recently traveled to an area with a COVID-19 outbreak ??? Had contact with a person who was diagnosed with or who may have COVID-19 ?? How can COVID-19 be prevented? There is no vaccine yet. The best prevention is to not have contact with the virus. The CDC advisesthat people should not travel to areas where there are COVID-19 outbreaks right now for any reason that is not urgent. For the most current CDC travel advisories, visit the CDC website at www.cdc.gov/ coronavirus/2019-ncov/travelers. ? To help prevent spreading the infection, wash your hands often, or use an alcohol-based hand medical engineer. The CDC advises that you should not wear a facemask if you are not sick. Prepare and protect yourself from COVID-19: ??? Wash your hands often with soap and clean, running water for at least 20 seconds. ??? If you don't have access to soap and water, use an alcohol-based hand medical engineer often. Make sure it has at least 60% alcohol. ??? Don't touch your eyes, nose, or mouth unless you have clean hands. ??? As much as possible, don't touch high-touch public surfaces such as doorknobs. Don't shake hands. ??? Clean home and work surfaces often with disinfectant. ??? Cough or sneeze into a tissue, then throw the tissue into the trash. If you don't have tissues, cough or sneeze into the bend of your elbow. ??? Stay informed about COVID-19 in your area. Follow local instructions about being in public. Be aware of events in your community that may be postponed or canceled such as school and sporting events. You may be advised not to attend public gatherings. You will be advised to stay about 6 feet from others as much as possible. This is called social distancing. ??? Check your home supplies. Consider keeping a 2-week supply of medicines, food, and other needed household items. ??? Make a plan for chil dcare, work, and ways to stay in touch with others. Know who will help you if you get sick. ??? Don't be around people who are sick. ??? There is no evidence right now that animals spread SARS-CoV-2.But it's always a good idea to wash your hands after touching any animals. Don't touch animals thatmay be sick. ??? Don ???t share eating or drinking utensils with sick people. ??? Don???t kiss someone who is sick. If you were in an area with COVID-19 in the last 14 days: ??? Call your healthcare provider and follow all instructions. Your activities and where you go maybe restricted for up to 2 weeks. ??? Take your temperature every morning and evening for at least 14 days. This is to check for fever. Keep a record of the readings. ??? Watch for symptoms of the virus. Call your provider if you have symptoms. Call your provider first before going to any clinic or hospital. ??? Stay home if you are sick for any reason. If you are sick with COVID-19 symptoms: ??? Stay home. Call your healthcare provider and tell them you have symptoms of COVID-19. Do this before going to any hospital or clinic. Follow your provider's instructions. You may be advised to isolate yourself at home. This is called self-isolation or self-quarantine. ??? Don ???t panic. Keep in mind that other illnesses can cause similar symptoms. ??? Stay away from work, school, and public places. Limit physical contact with family members. Limit visitors. Don't kiss anyone or share eating or drinking utensils. Clean surfaces you touch with disinfectant. This is to help prevent the virus from spreading. ??? Cough or sneeze into a tissue, then throw away the tissue in the trash. If youdon't have tissues, cough or sneeze into the bend of your elbow. ??? Wear a facemask only if you have symptoms ??? If you need to go in to a hospital or clinic, expect that the healthcare staff will wear protective equipment such as masks, gowns, gloves, and eye protection. You may be put in a separate room. This is to prevent the possible virus from spreading. ??? Tell the healthcare staff about recent travel. This includes local travel on public transport. Staff may need to find other people you have been in contact with. ??? Follow all instructions the healthcare staff give you. If you have been diagnosed with COVID-19 ??? Stay home. Don ???t leave your home unless you need to get medical care. Don't go to work, school, or public areas. Don't use public transportation or taxis. ??? Follow all instructions from yourhealthcare provider. Call your healthcare provider???s office before going. They can prepare and give you instructions. This will help prevent the virus from spreading. ??? If you need to go to a hospital or clinic, expect that the healthcare staff will wear protective equipment such as masks, gowns, gloves, and eye protection. You may be put in a separate room. This is to prevent the possible virus from spreading. ??? Wear a face mask. This is to protect other people from your germs. If you are not able to wear a mask, your caregivers should. ??? Stay away from other people in your home. ???Limit contact with pets and animals. Although there are no reports of pets getting sick with COVID-19, consider limiting contact with pets until more is known. ??? Don???t share household items or food. ??? Cover your face with a tissue when you cough or sneeze. Throw the tissue away. Then wash your hands. ??? Wash your hands often. If you are caring for a sick person: ??? Follow all instructions from healthcare staff. ??? Wash your hands often. ??? Wear protective clothing as advised. ??? Make sure the sick person wears a mask. If they can't wear a mask, don't stay in the same room with the person. If you must be in the same room, wear a facemask. ??? Keep trackof the sick person???s symptoms. ??? Clean surfaces, fabrics, and laundry thoroughly. ??? Keep other people and pets away from the sick person. When to call your healthcare provider Call your healthcare provider: ??? If you ???ve recently traveled or have been in an area with COVID-19 and have symptoms ??? If you have been diagnosed with COVID-19 and your symptoms are worse ? 0880-8533 [employer]. [address] [place] [address], [place] [address]. All rights reserved. This information is not intended as a substitute for professional medical care. Always follow your healthcare professional's instructions. ?? Patient Care team information Care Team Personnel Name: Gisela CLARK, Chepe Gupta Position: Reference Physician Member Role: PCP Address: Address: [address] [place] [address] [address] [place] [address]- Name: *Andreea, SANDEEP Attending Position: [facility] ED Attendings Patient Name: Kun Galarza Position: [facility] TA [facility] Member Role: Patient Care Provider Name: Soledad Stovall MD Position: [facility] Resident Member Role: Admitting Physician Address: Address: [address] [place] [address] [place] [address]- Care Team Related Persons Name: CHIO CONLEY Address: home [address] [place] [address] Name: FAUSTINO RESENDEZ Address: home [address] [place] [address]
--- OUTSIDE RECORDS SUMMARY | 2024-05-22 18:36 | XMS_ITS | Continuity of Care Document ---
Author [facility] Address [address] [facility], [place] [address]- Care Team Providers Care Retail Team Member Name Role Phone Not on Staff, PCP Primary Care Physician Unavail able Encounter [facility] [place] Date(s): 11/03/23 - 02/20/24 [facility] Nestor Dials [facility] [address] [facility], [address] [place] [address]- Attending Physician: Not on Staff, Attending MD Referring Physician: Not on Staff, Referring [...] Team Related Persons Name: CHIO CONLEY Address: [place] [address] Name: PREM RESENDEZ Address: [address] [address]
--- OUTSIDE RECORDS SUMMARY | 2024-05-22 18:36 | XMS_ITS | Continuity of Care Document ---
Author Organization [facility] Address [address] [facility], [address] [address]- Care Team Providers Care Board Certified Music Therapist Name Role Phone Not on Staff, PCP Primary Care Physician Unavail able Encounter [facility] [place] Date(s): 11/03/23 - 12/03/23 [facility] [address] [facility], [address] [place] [address]- Allergies, Adverse Reactions, Alerts No Known Allergies [...] Personnel Name: Not on Staff, PCP Position: [facility] Physician (General Medicine) Member Role: PCP Care Team Related Persons Name: CHIO CONLEY Address: home [address] [place] [id number] Name: PREM RESENDEZ Address: home [address] [place] [address]
--- OUTSIDE RECORDS SUMMARY | 2024-05-22 18:36 | XMS_ITS | Continuity of Care Document ---
Author Organization [facility] Address [address] [place] [address], [place] [address]- Care Team Providers Care Health Information Management Director Name Role Phone Gisela CLARK, Chepe Gupta Primary Care Physician [place] [facility] [place] 04/26/22 - 05/26/22 [facility] [address] [facility], [address] [place] [address]- Allergies, Adverse Reactions, Alerts No Known Allergies [...] Refills, Maintenance, 05/04/21 13:29:00 EDT, ER Tablet, [facility]/pharmacy #[id number], Partial fill upon patient request if the [...] 5 years ago; entered on: 02/23/18 Sex Care Team Personnel Name: Gisela CLARK, Chepe Gupta Address: [address] [place] [address] [address]
--- OUTSIDE RECORDS SUMMARY | 2024-05-22 18:36 | XMS_ITS | Continuity of Care Document ---
Author Organization [facility] Nestor [facility]cker[facility] Address [address] [place] [address], [address] [address]- Care Team Providers Care Pipe Line Inspector Name Role Phone Chepe Higgins MD Primary Care Physician [phone] Encounter [facility] Date(s): 06/12/22 - 06/19/22 [facility] [employer] [facility] [address] [facility], [address] [place] [address]- Attending Physician: Jeremiah Alcazar MD Referring Physician: Chepe Higgins MD Allergies, Adverse Reactions, Alerts No Known Allergies Medications hydrOXYzine hydrochloride 25 mg oral tablet 1 tablet = 25 mg, By Mouth, 4 times a day, PRN for anxiety, # 40 tablet, 0 Refills, Maintenance, 05/04/21 13:30:00 EDT, Tablet, [id number], Partial fill upon patient request if the prescription is for a schedule II opioid drug. Start Date: 05/04/21 Status: Ordered metroNIDAZOLE 500 mg oral tablet 1 tablet = 500 mg, By Mouth, Every 12 hours, for 7 days, # 14 tablet, 0 Refills, Acute 06/21/22 17:00:00 EDT, 06/14/22 17:00:00 EDT, Tablet, [id number], Partial fill upon patient request if the prescription is for a schedule II opioid drug. Start Date: 06/14/22 Stop Date: 06/21/22 Status: Ordered PROzac 40 mg oral capsule [...] Refills, Maintenance, 05/04/21 13:29:00 EDT, ER Tablet, [facility]/pharmacy #[id number], Partial fill upon patient request if the prescription is for a schedule II opioid drug. Start Date: 05/04/21 Status: Ordered Problem List Condition Confirmation Course Effective Dates Status H ealth Status Informant Depression Confirmed Active Women's annual routine gynecological examination Confirmed Active Suicidal ideation Confirmed Active Vital Signs Most recent to oldest [Reference Range]: 1 Weight 60.90 kg (06/12/22 8:38 AM) Blood Pressure [90-138/55-84 mm Hg] 105/ 69mm Hg (06/12/22 8:38 AM) Blood pressure sites Arm, left (06/12/22 8:38 AM) Weight Obtained Via Standing scale (06/12/22 8:38 AM) Social History Social History Type Response Smoking Status Former smoker; Type: Cigarettes; Other: Quit 5 years ago; entered on: 02/23/18 Sex Patient Care team information Personnel Name: Chepe Higgins MD Address: Address: [address] [place] [address] [address]
--- OUTSIDE RECORDS SUMMARY | 2024-05-22 18:36 | XMS_ITS | Continuity of Care Document ---
Author Organization [facility] ter Address [address] [place] [address]- Care Team Providers Care Rug Inspector Name Role Phone Not on Staff, PCP Primary Care Physician Unavail able Encounter [facility] Date(s): 05/03/21 - 05/04/[address] [address]- Discharge Disposition: A-D/C Home Attending Physician: Paul Riley MD Admitting Physician: Paul Riley MD Referring Physician: Not on Staff, Referring [...] Refills, Maintenance, 05/04/21 13:29:00 EDT, ER Tablet, [facility]/pharm[facility] #[id number], Partial fill upon patient request if the [...] 1 2 3 Oxygen Saturation [94-100 %] 98 % (05/04/21 6:57 AM) 97 % (05/03/21 11:16 PM) 96 % (05/03/21 5:25 PM) Pulse Rate [55-90 bpm] 110 bpm *H* (05/04/21 1:47 PM) 103 bpm *H* (05/04/21 6:58 AM) 103 bpm *H* (05/04/21 6:57 AM) Blood Pressure [90-138/55-84 mm Hg] 129/95mm Hg (05/04/21 1:47 PM) 117/69mm Hg (05/04/21 6:57 AM) 107/66mm Hg (05/03/21 11:16 PM) Respiratory Rate [16-30 br/min] 17 br/min (05/04/21 1:47 PM) 20 br/min (05/04/21 6:57 AM) 18 br/min (05/03/21 11:16 PM) Temperature [96.8-100.4 DegF] 98.2 DegF (05/04/21 1:47 PM) 98.0 DegF (05/04/21 6:57 AM) 98.4 DegF (05/03/21 11:16 PM) Mode of Delivery (Oxygen) Room air (05/04/21 1:47 PM) Room air (05/04/21 6:57 AM) Room air (05/03/21 11:16 PM) Blood pressure sites Arm, right (05/04/21 1:47 PM) Arm, left (05/04/21 6:57 AM) Arm, right (05/03/21 11:16 PM) Temperature Route Oral (05/04/21 1:47 PM) Oral (05/04/21 6:57 AM) Oral (05/03/21 11:16 PM) Social History Social History Type Response Smoking Status Former smoker; Type: Cigarettes; Other: Quit 5 years ago; entered on: 02/23/18 Sex
--- OUTSIDE RECORDS SUMMARY | 2024-05-22 18:36 | XMS_ITS | Continuity of Care Document ---
Author Organization [facility] Address [address] [place] [address], [place] [address]- Care Team Providers Care Rental Representative Name Role Phone Gisela CLARK, Chepe Gupta Primary Care Physician Encounter [facility] Date(s): 06/12/22 - 07/12/22 [facility] [employer] [address] [facility], [address] [place] [address]- Attending Physician: Charmaine Rapp Admitting Physician: Charmaine Rapp Referring Physician: AdmtrCharmaine Allergies, Adverse Reactions, Alerts No Known Allergies [...] Reference Physician Member Role: PCP Address: Address: [address] [place] [address] [address] [place] [address]- Care Team Related Persons Name: CHIO CONLEY Address: home [address] [place] [address] Name: FAUSTINO RESENDEZ Address: home [address] [place] [address]
--- OUTSIDE RECORDS SUMMARY | 2024-05-22 18:36 | XMS_ITS | Continuity of Care Document ---
Author Organization [facility]or [employer] [facility] Address [address] [place] [address], [address] [place] [address]- Care Team Providers Care Internal Affairs Investigator Name Role Phone Chepe Higgins MD Primary Care Physician [phone] [id number] Date[facility]27[facility] - 11/27/19 [facility] [employer] [address] [facility], [address] [place] [address]- Attending Physician: Not on Staff, Attending MD [...]
--- OUTSIDE RECORDS SUMMARY | 2024-05-22 18:36 | XMS_ITS | Continuity of Care Document ---
Author Organization [facility] ter Address [address] [place] [address]- Care Team Providers Care Hat Parts Cutter Machine Name Role Phone Chepe Higgins MD Primary Care Physician [phone] [id number] Date[facility] 04/[facility]/23 - 04/03/[address] [address]- Encounter Diagnosis Alcohol intoxication(Final) - 04/03/23 Anxiety(Final) - 04/03/23 Discharge Disposition: A-D/C Home Attending Physician: Mejia Yanez MD Admitting Physician: Mejia Yanez MD Referring Physician: Not on Staff, Referring [...] Range]: 1 2 Oxygen Saturation [94-100 %] 95 % (04/03/23 3:34 PM) 98 % (04/03/23 3:26 PM) Pulse Rate [55-90 bpm] 101 bpm *H* (04/03/23 3:34 PM) 102 bpm *H* (04/03/23 3:26 PM) Blood Pressure [90-138/55-84 mm Hg] 113/ 66mm Hg (04/03/23 3:34 PM) 114/76mm Hg (04/03/23 3:26 PM) Respiratory Rate [16-30 br/min] 18 br/mi n (04/03/23 3:34 PM) 20 br/min (04/03/23 3:26 PM) Temperature [96.8-100.4 DegF] 98.2 DegF (04/03/23 3:34 PM) 98.6 DegF (04/03/23 3:26 PM) Mode of Delivery (Oxygen) Room air (04/03/23 3:34 PM) Room air (04/03/23 3:26 PM) Blood pressure sites Arm, left (04/03/23 3:34 PM) Temperature Route Oral (04/03/23 3:34 PM) Oral (04/03/23 3:26 PM) Social History Social History Type Response Smoking Status Former smoker; Type: Cigarettes; Other: Quit 5 years ago; entered on: 02/23/18 Sex Patient Care team information Care Team Personnel Name: Chepe Higgins MD Position: Reference Physician Member Role: PCP Address: Address: [address] [place] [address] [address] [place] [address]- [place] Name: Jr Iverson DO Position: [facility] Resident Member Role: ED Resident Address: Address: [address] [place] [address] [place] [address]- Name: Nena Chase RN Position: [facility] ED RN W/OE and Tasks Member Role: Patient Care Provider Name: Mejia Yanez MD Position: [facility] ED Medicine MD Member Role: Admitting Physician Address: Address: [address] [place] [address] Palliative [place] [address]- [place] Name: Lauren Banuelos Position: S ED TA [facility] Care Team Related Persons Name: CHIO CONLEY Address: [place] [address] Name: FAUSTINO RESENDEZ Address: home [address] [place] [address]
[2024-05-22 18:45] LABS: INTERNATIONAL NORM RATIO 1.2 (0.9-1.1); Prothrombin Time 14.2 SEC (10.9-12.4)
[2024-05-22 18:52] LABS: Alanine Aminotransferase 26 U/L (0-31); Albumin Level 3.7 g/dL (3.5-5.0); Alkaline Phosphatase 77 U/L (39-117); Anion Gap 14 (12-20); Aspartate Amino Transferase 26 U/L (5-31); Bilirubin Total 0.7 mg/dL (0.0-1.0); Blood Urea Nitrogen 8 mg/dL (9-16); Calcium 9.1 mg/dL (8.4-10.2); Carbon Dioxide 25 mmol/L (22-29); Chloride 98 mmol/L (96-108); Creatinine Clr Calc Pharmacy 67.6; Estimated Glomerular Filt Rate > 60; Ethanol 11 mg/dL; Glucose Random 109 mg/dL (60-115); Potassium 3.3 mmol/L (3.3-5.1); Sodium 134 mmol/L (135-145); Total Protein 6.5 g/dL (6.5-8.0)
[2024-05-22 18:59] LABS: Troponin-I High Sensitivity 8.9 ng/L (<3.5-17.0)
[2024-05-22 19:15] LABS: Influenza A PCR NEGATIVE (Negative); Influenza B PCR NEGATIVE (Negative); Resp Syncy Virus RNA Qual PCR NEGATIVE (Negative); SARS COV2 PCR INHOUSE NEGATIVE (Negative)
--- NOTE | 2024-05-22 20:00 | MHC.EDTECH ---
This pct just assumed care of patient ,vitals taken ,rn and Provider aware of Patient high temp ,high resp and low blood pressure .
[2024-05-22] MEDS: Ketorolac Tromethamine 15 MG/ML VIAL IVPUSH (20:16)
[2024-05-22] MEDS: Acetaminophen 325 MG TABLET 975 MG PO (20:17)
[2024-05-22] MEDS: 0.9 % Sodium Chloride 1,000 ML 999 ML IV ×3 (20:17→23:01)
[2024-05-22] MEDS: cefTRIAXone sodium 1 GM in 0.9 % Sodium Chloride 50 ML IV (20:23)
[2024-05-22 20:27] LABS: SLIDE REVIEW VERIFIED
[2024-05-22] MEDS: iohexoL 350 MG/ML 100 ML INFUS..BTL IV (21:18)
[2024-05-22] MEDS: Azithromycin 500 MG in 0.9 % Sodium Chloride 250 ML 125 MG IV (21:19)
--- NOTE | 2024-05-22 21:49 | PC.NURSE ---
Pt SBP soft to high 80's, MD Machado notified (PA Emanuel not available) additional IVF ordered.
[2024-05-22] MEDS: Enoxaparin Sodium 60 MG/0.6 ML SYRINGE SUBCUT (23:00)
[2024-05-23] VITALS (61 sets, daily range): BP systolic 79–136; BP diastolic 52–84; PULSE 70–108; RESP 16–32; TEMP 36.4–37.8; O2SAT 89–100
--- NOTE | 2024-05-23 | ECG_ITS ---
Test Reason : DYSPNEA Blood Pressure : / mmHG Vent. Rate : 094 BPM Atrial Rate : 094 BPM P-R Int : 142 ms QRS Dur : 080 ms QT Int : 358 ms P-R-T Axes : 017 030 032 degrees QTc Int : 447 ms Normal sinus rhythm Low voltage QRS Cannot rule out Anterior infarct , age undetermined Abnormal ECG When compared with ECG of 22-MAY-2024 17:54, Nonspecific T wave abnormality has replaced inverted T waves in Inferior leads Heart rate has decreased Referred By: Ximena Johnson Electronically Signed By:MIN ALVAREZ
[2024-05-23] MEDS: Albumin Human 25 % 100 ML IV ×4 (00:15→18:35)
[2024-05-23] MEDS: 0.9 % Sodium Chloride 1,000 ML 999 ML IV (01:07)
[2024-05-23] MEDS: Norepinephrine Bitartrate/D5W 8 MG/250 ML PLAST..BAG 5.95 MG IVCONT (01:07)
[2024-05-23] MEDS: fentaNYL citrate/PF 100 MCG/2 ML VIAL 50 MCG IVPUSH (01:16)
--- NOTE | 2024-05-23 01:20 | PC.NURSE ---
Achieved MAP of 66 per titration protocol of Norepi
[2024-05-23 01:30] LABS: B Type Natriuretic Peptide 208 pg/mL (<100); Troponin-I High Sensitivity 30.7 ng/L (<3.5-17.0)
--- NOTE | 2024-05-23 01:42 | MHC.EDTECH ---
This tech took over care of patient at 0040,patients BP is low,RN and providers are aware,belongings list completed,family at bedside call ponce in reach
[2024-05-23] MEDS: Lactated Ringers 1,000 ML 999 ML IV (01:57)
[2024-05-23] MEDS: Ketorolac Tromethamine 30 MG/ML VIAL IVPUSH (02:55)
[2024-05-23] MEDS: Lactated Ringers 1,000 ML 100 ML IVCONT (02:57)
--- NOTE | 2024-05-23 03:18 | PC.NURSE ---
Pt with single episode of vomiting after cough. Medications orderd and given with good effect.
[2024-05-23] MEDS: ondansetron HCL 4 MG/2 ML VIAL IVPUSH (03:19)
--- NOTE | 2024-05-23 03:24 | PC.NURSE ---
Pt noted to have mild O2 desaturation with sleep, placed on 2L O2 via NC with good effect.
--- NOTE | 2024-05-23 03:27 | PC.NURSE ---
Norepi restarted d/t declining MAP aware
--- NOTE | 2024-05-23 04:16 | MHC.EDTECH ---
Hourly rounds and vitals completed,patient is resting,BP is low RN/provider are aware,call ponce in reach
--- NOTE | 2024-05-23 06:10 | MHC.EDTECH ---
Hourly rounds and vitals completed,repeat lab drawn and sent to lab,patient is resting quietly,warm blanket given and call ponce in reach
[2024-05-23 06:15] LABS: Hematocrit 30.5 % (37.0-47.0); Hemoglobin 10.4 g/dl (12.0-16.0); Mean Corpuscular HGB Conc 34.1 g/dl (31.0-35.0); Mean Corpuscular Hemoglobin 29.2 pg (27.0-33.0); Mean Corpuscular Volume 85.7 fL (80.0-98.0); Mean Platelet Volume 9.8 fL (9.4-12.3); Platelet Count 215 X10*3/uL (160-400); Red Blood Count 3.56 X10*6/uL (4.20-5.50); Red Cell Distribution Width 13.4 % (11.0-16.0); White Blood Count 18.5 X10*3/uL (4.8-10.8)
--- NOTE | 2024-05-23 11:32 | PC.NURSE ---
levophed stopped at 0947 and pt has maintained a bp above 90 systolic since then, md aware, plan for hospitalist admission, sr on monitor, no dizziness, ate breakfast and drinking water, skin wpd, nad, occasional cough, md informed of last antibiotic treatment and new orders placed
[2024-05-23] MEDS: cefTRIAXone sodium 1 GM in 0.9 % Sodium Chloride 50 ML IV (11:47)
[2024-05-23] MEDS: Doxycycline Hyclate 100 MG in 0.9 % Sodium Chloride 250 ML 166.67 MG IV (13:03)
--- NOTE | 2024-05-23 13:23 | PM.IMHP ---
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 The patient reports feeling sick for the last 2 weeks at least. evaluated by her PCP and at [facility] who treated her as viral illness with supportive therapy. She has been feeling worse with increase pain in the left side of her chest associated with deep breath. She also reports fever, chills, dyspnea, joint pain and feeling unwell. No nausea, vomiting, diarrhea or urinary symptoms. denies family hx of clots, no recent travel or prolonged rest. She continues to drink alcohol. Tox screen positive for THC only. In ED CTA showed left sided PE with LLL infiltrates. patient was hypotensive requiring IV fluids and IV pressors with fair response. Admitted for further work up and management. Review of Systems Review of Systems: reported fever, chills and weakness having left sided chest pain, palpitation has shortness of breath or coughing No abdominal pain, nausea or vomiting No urinary symptoms No any rash or wounds PMFSH Medical History Suicide attempt Alcoholism Surgical History History of bladder surgery Social History Housing: House Alcohol intake: current Alcohol intake frequency: holidays/special occasions only Alcohol type: beer Patient Tobacco Use Status: Former Tobacco user Smoked in Last 30 Days: Yes e-Cigarette/Vaping Use: Currently Using Use of substances other than those prescribed or required for medical reasons: No Advance Directives: No Advance Directives Information Provided: No Do you have a plan to hurt others: No Plan Patient : No service: No Current occupational status: unemployed Current occupational exposures/hazards: No Cognitive needs: No Hearing needs: No Vision needs: Yes Meds Allergies Allergy/AdvReac Type Severity Reaction Status Date / Time No Known Allergies Allergy Verified 05/22/24 18:08 [No Known Allergies*] Active Medications: Current Medications Acetaminophen (Acetaminophen 325 Mg Tablet) 650 mg PO Q6H PRN PRN Reason: Pain, Mild (Pain Scale 1-3), fever or headache Calcium Carbonate (Calcium Carbonate 750 Mg Tab.Chew) 750 mg PO Q4H PRN PRN Reason: Heartburn Enoxaparin Sodium (Enoxaparin Sodium 60 Mg/0.6 Ml Syringe) 60 mg SUBCUT Q12H [facility] Hydromorphone HCl (Hydromorphone Hcl 0.5 Mg/0.5 Ml Syringe) 0.5 mg IVPUSH Q4H PRN; Protocol PRN Reason: Pain, Severe (Pain Scale 7-10) Norepinephrine Bitartrate (Levophed) 8 mg in 250 mls @ 0 mls/hr IVCONT .Q0M [facility]; Protocol Last Titration: 05/23/24 09:47 Dose: 0 mcg/kg/min, 0 mls/hr Lactated Ringer's (Lr) 1,000 mls @ 100 mls/hr IVCONT .Q10H [facility] Stop: 05/23/24 22:59 Last Admin: 05/23/24 02:57 Dose: 100 mls/hr Ceftriaxone Sodium 1 gm/ (Sodium Chloride) 50 mls @ 100 mls/hr IV Q24H [facility] Azithromycin 500 mg/ Sodium (Chloride) 250 mls @ 125 mls/hr IV Q24H [facility] Magnesium Hydroxide (Milk Of Magnesia 30 Ml Oral.Susp) 30 ml PO DAILY PRN PRN Reason: Constipation Melatonin (Melatonin 3 Mg Tablet) 6 mg PO BEDTIME PRN PRN Reason: Insomnia Ondansetron HCl (Ondansetron Hcl 4 Mg/2 Ml Vial) 4 mg IVPUSH Q8H PRN PRN Reason: Nausea and Vomiting Sodium Chloride (0.9 % Sodium Chloride Flush 3 Ml Syringe) 3 ml IVFLUSH QSHIFT [facility] Home Medications ?Medication ?Instructions ?Recorded ?Confirmed ?Last Taken ?Type bupropion HCl 300 mg 24 hr tablet, 300 mg PO DAILY 05/23/24 Unknown History extended release (Wellbutrin XL) Physical Exam Vital Signs and Narrative: Vital Signs: Last Vital Signs Temp 98.8 F 05/23/24 13:10 Pulse 102 H 05/23/24 13:10 Resp 26 H 05/23/24 13:10 BP 127/78 05/23/24 13:10 Pulse Ox 92 05/23/24 13:10 O2 Del Method Nasal Cannula 05/23/24 13:10 O2 Flow Rate 2 05/23/24 13:10 BMI result Body Mass Index 24.0 Const: Other: Constitutional : Awake, interactive, in moderate resp distress using accessory muscles Neck : Normal inspection, Supple Cardiovascular : RRR, no JVP, no lower extremity edema Respiratory : fair bilateral air entry, decrease at LLL with basal crackles bilaterally , O2 supplement Gastrointestinal: soft, lax, Normal bowel sounds, Non tender Skin : Warm, Dry Neurological : Alert & oriented x3, No focal deficit Results Labs 05/23/24 06:09 05/22/24 18:29 Labs: Laboratory Results - last 24 hr 05/22/24 05/22/24 05/23/24 18:29 20:10 01:04 MCV 85.3 MCH 29.0 MCHC 34.0 RDW 13.2 Plt Count 243 MPV 9.5 Immature Gran % (Auto) 0.8 H Neut % (Auto) 91.0 H Lymph % (Auto) 2.8 L [place] % (Auto) 4.8 Eos % (Auto) 0.1 Baso % (Auto) 0.5 Lymph # (Auto) 0.5 L [place] # (Auto) 0.8 Eos # (Auto) 0.0 Baso # (Auto) 0.1 Abs Immat Gran (auto) 0.13 H Absolute Neuts (auto) 15.5 H Absolute Nucleated RBC 0.000 Nucleated RBC % (auto) 0.0 Smear Tech's Comments VERIFIED PT 14.2 H INR 1.2 H Anion Gap 14 Estim Creat Clear Calc 67.6 Estimated GFR > 60 Random Glucose 109 Lactic Acid 1.0 Calcium 9.1 Total Bilirubin 0.7 AST 26 ALT 26 Alkaline Phosphatase 77 Troponin I High Sens 8.9 30.7 H D B-Natriuretic Peptide 208 H Total Protein 6.5 Albumin 3.7 Ethyl Alcohol 11 Influenza Type A (PCR) NEGATIVE Influenza Type B (PCR) NEGATIVE RSV RNA Qual (PCR) NEGATIVE SARS-CoV-2 RNA (RT-PCR) NEGATIVE 05/23/24 06:09 MCV 85.7 MCH 29.2 MCHC 34.1 RDW 13.4 Plt Count 215 MPV 9.8 Immature Gran % (Auto) Neut % (Auto) Lymph % (Auto) [place] % (Auto) Eos % (Auto) Baso % (Auto) Lymph # (Auto) [place] # (Auto) Eos # (Auto) Baso # (Auto) Abs Immat Gran (auto) Absolute Neuts (auto) Absolute Nucleated RBC 0.000 Nucleated RBC % (auto) 0.0 Smear Tech's Comments PT INR Anion Gap Estim Creat Clear Calc Estimated GFR Random Glucose Lactic Acid Calcium Total Bilirubin AST ALT Alkaline Phosphatase Troponin I High Sens B-Natriuretic Peptide Total Protein Albumin Ethyl Alcohol Influenza Type A (PCR) Influenza Type B (PCR) RSV RNA Qual (PCR) SARS-CoV-2 RNA (RT-PCR) Imaging Radiologist's Impressions: Impressions Chest CTA 05/22/24 20:05 IMPRESSION: 1. Nonocclusive acute pulmonary embolus within the left lower lobe segmental branch. 2. Lingular and left lower lobe pneumonia. Fleischner guidelines were followed. This critical test result was discussed with Dr. Britton at 10:09 PM on 05/22/[address] Jaskaran Redmond at the time of discovery. It was ascertained that the content and the importance of the findings was understood at the time of the direct communication. 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 Septic shock 2/2 Pneumonia Shoct resolved , received multiple IVF boluses and Albumen, pressors off, in fluid overload now Pending blood cultures continue Azithromycin and Ceftriaxone Acute Pulmonary embolism CTA reporting non-occlusive Left sided PE check US LE Lovenox full dose for now Acute hypoxic respiratory failure 2/2 new onset CHF likely from IVF fluids to treat septic shock IV lasix follow BNP check ECHO Elevated Trop I likely 2/2 septic shock Trop from 38 to 4000+ No EKG changes to suggest ACS keep on Tele recheck Trop I Alcohol abuse and high risk of withdrawal CIWA start Phenobarb protocol Depression restart home medicaitons DVT PPx Lovenox The patient will need 2 overniht hosptial stay for treatment of Hypoxia, sepsis, pneumonia pending final blood cultures and weaning down O2 supplement. Quality Stroke Does the patient have a stroke diagnosis?: No VTE Prior VTE?: No VTE Risk Level:: Medical - moderate - high VTE Device Contraindication: Treatment Not Indicated VTE Drug Contraindication: N/A - Med Ordered
[2024-05-23] MEDS: Furosemide 20 MG/2 ML VIAL IVPUSH (13:55)
[2024-05-23] MEDS: Ketorolac Tromethamine 15 MG/ML VIAL IVPUSH (13:56)
--- NOTE | 2024-05-23 14:00 | PC.NURSE ---
pt with acute onset of sob and spo2 down to 88% on the 2lpm, increased the 02 via nc up to 6 lpm and spo2 still was upper 80's to low 90's with increased work of breathing, ls crackles on r at base and mid way up, fluids stopped, chest xray ordered and done showing chf, Dr pandey and Alex to bedside with plan for lasix and pain meds, placed on NRB with relief of sob and spo2 to mid to upper 90's, st on monitor
[2024-05-23] MEDS: Benzonatate 100 MG CAPSULE 200 MG PO ×2 (15:18→21:57)
[2024-05-23] MEDS: guaiFENesin LA 600 MG TAB.ER.12H PO ×2 (15:18→21:57)
[2024-05-23] MEDS: Azithromycin 500 MG in 0.9 % Sodium Chloride 250 ML 125 MG IV (15:19)
[2024-05-23] MEDS: Enoxaparin Sodium 60 MG/0.6 ML SYRINGE SUBCUT (15:30)
--- NOTE | 2024-05-23 15:50 | PHA.MEDREC ---
Addendum entered by Hal Lewis [facility] 05/23/24 16:37: MED REC CHECKED BY [facility] Original Note: Pharmacy Consult ? Medication Reconciliation Pharmacy has completed the medication reconciliation.
[2024-05-23] MEDS: 0.9 % Sodium Chloride Flush 3 ML SYRINGE IVFLUSH (17:02)
[2024-05-23] MEDS: Midodrine HCl 10 MG TABLET PO (17:14)
[2024-05-23 18:13] LABS: Troponin-I High Sensitivity 5458.9 ng/L (<3.5-17.0)
--- NOTE | 2024-05-23 18:54 | MHC.EDTECH ---
Pt given dinner tray
--- NOTE | 2024-05-23 19:22 | PC.NURSE ---
Noted to have a Phenobarbitol 1mg IM order. This RN questioning dose and indication for this medication. Samaria Kee (TALLOW REFINER) instructed this RN to hold and is en route to re-evaluate the patient. Will review medication orders at re-evaluation. Edith Lopez (soaker soda worker) aware.
--- NOTE | 2024-05-23 19:36 | PC.NURSE ---
Spoke with pharmacist. Dose & times for Phenobarbital administration being adjusted at this time. Samaria Kee NP also spoke with pharmacist and plans to re-evaluate the patient 1 hour from now (~8:30 PM) to determine ICU vs IMC admission status.
--- NOTE | 2024-05-23 19:53 | PC.NURSE ---
This RN retrieved the ordered Phenobarbital from the xis for administration. Upon entering patient's room, pt stated I told Anthony that I have been sober from alcohol for several months, so I'm not in withdrawal and don't need that medication. That's why I didn't take it before . This RN notified MD Alex & LUCIANO Kee regarding patient's statement. Alex discontinued her Phenobarbital order set. [facility]obar[facility] room.
[2024-05-23] MEDS: Acetaminophen 325 MG TABLET 650 MG PO (20:02)
[2024-05-24] VITALS (11 sets, daily range): BP systolic 110–148; BP diastolic 69–84; PULSE 82–99; RESP 17–20; TEMP 36.7–38.2; O2SAT 90–97
[2024-05-24] MEDS: Melatonin 3 MG TABLET 6 MG PO ×2 (01:38→21:48)
[2024-05-24] MEDS: Enoxaparin Sodium 60 MG/0.6 ML SYRINGE SUBCUT ×2 (01:39→14:38)
[2024-05-24] MEDS: Acetaminophen 325 MG TABLET 650 MG PO ×3 (03:16→16:34)
--- NOTE | 2024-05-24 07:00 | CA_ITS ---
Transthoracic Echocardiogram Patient (Last, First, Middle): Cristina Campos, Gender: Female Date of : 1970 Age: 54 Procedure Date: 05/24/2024 Procedure Type: Transthoracic Echocardiogram Location: [facility] [place] Height: 162.56 cm Weight: 63.05 kg BSA: 1.68 m2 Heart Rate: 93 bpm BP: 117 / 69 mmHg Senior Marketing Manager: SB Referring MD: Ximena Johnson MD Symptoms: new heart failure, elevated Trop I Study Quality: Adequate ECG Rhythm: Sinus Conclusions: - The left ventricular systolic function is low normal. The calculated ejection fraction is 53% by biplane method. - The basal inferior segment is akinetic. - No obvious valvular pathology seen on this study. Findings Left Ventricle Normal left ventricular cavity size. There is normal left ventricular wall thickness. The left ventricular systolic function is low normal. The calculated ejection fraction is 53% by biplane method. Diastolic function is normal for age. Wall Motion Rest Echo Findings The basal inferior segment is akinetic. Right Ventricle Normal right ventricular cavity size and systolic function. Atria Both atria are normal in size. Aortic Valve There is a normal trileaflet aortic valve. There is no aortic valve stenosis. There is no aortic valve regurgitation. Mitral Valve The mitral valve appears normal. There is mild mitral valve regurgitation. There is no mitral valve stenosis. Pulmonic Valve The pulmonic valve is likely normal. Tricuspid Valve There is mild tricuspid valve regurgitation. There is no evidence of pulmonary hypertension. Great Vessels The asc aorta is normal in size. Venous The inferior vena cava is normal in size and collapses greater than 50% with inspiration. Pericardium/Pleural There is no evidence of pericardial effusion. Left pleural effusion noted. Prior Study Comparison No prior study available for comparison. Recommendations, Care & Conclusions No obvious valvular pathology seen on this study. Measurements 2D Linear Measurements IVSd: 0.89 0.6-0.9/0.6-1.0 cm LVIDd: 4.69 3.9-5.3/4.2-5.9 cm LVIDd Index: 2.79 2.4-3.2/2.2-3.1 cm/m2 LVIDs: 3.05 2.0-3.6 cm LVPWd: 0.76 0.7-1.1 cm LA Diam: 3.50 2.7-3.8/3.0-4.0 cm LAIDs Index: 2.08 1.5-2.3 cm/m2 LV Mass: 157.49 67-162/88-224 g LV Mass Index: 93.75 43-95/49-115 g/m2 LVOT Diam: 1.90 3.0+(-)1.3 cm 2D Systolic Function EF 4C: 51.90 >55% EF 2C: 54.70 >55% EF BiP: 52.70 >55% Mitral Valve MV Pk E: 1.05 MV PK A: 0.74 MV Decel Time: 179.00 E/A: 1.40 E'Lateral: 16.60 E'Medial: 8.27 E/E' Med: 12.70 E/E' Lat: 6.30 PHT: 53.00 MVA PHT: 4.15 Decel Smith: 5.88 Aortic Valve AoV Pk Andrea: 1.10 AoV Pk Grad: 5.00 CECIL: 2.94 LVOT LVOT Pk Andrea: 1.06 LVOT Mn Andrea: 0.76 LVOT VTI: 0.21 LVOT Pk Grad: 4.00 LVOT Mn Grad: 3.00 LVOT Diam: 1.90 LVOT Area: 2.84 Diastolic Function MV Pk E: 1.05 MV Pk A: 0.74 E/A: 1.40 E'Medial: 8.27 E/E' Med: 12.70 E' Laterial: 16.60 E/E' Lat: 6.30 Right Ventricle TAPSE (mm): 19.40 TVS' Andrea: 14.70 Tricuspid Valve TR Pk Andrea: 2.45 TR Pk Grad: 24.00 RA Press: 8.00 RVSP: 32.00 Great Vessels Aorta Sinus of Valsalva: 2.60 2.0-3.5 cm Ao Asc: 2.90 2.1-3.4 cm Pulmonary Veins Pulm Vein S/D 0.70 Pulmonary Valve PV Pk Andrea: 0.75 Peak PV Grad: 2.00 Updated in Other Vendor System with Status of Final Willy Almaraz MD electronically signed on 05/24/2024 12:07:43 PM with status of Final
[2024-05-24 07:21] LABS: Hematocrit 28.5 % (37.0-47.0); Hemoglobin 9.5 g/dl (12.0-16.0); Mean Corpuscular HGB Conc 33.3 g/dl (31.0-35.0); Mean Corpuscular Hemoglobin 28.1 pg (27.0-33.0); Mean Corpuscular Volume 84.3 fL (80.0-98.0); Mean Platelet Volume 10.5 fL (9.4-12.3); Platelet Count 229 X10*3/uL (160-400); Red Blood Count 3.38 X10*6/uL (4.20-5.50); Red Cell Distribution Width 13.6 % (11.0-16.0); White Blood Count 11.6 X10*3/uL (4.8-10.8)
[2024-05-24 07:32] LABS: B Type Natriuretic Peptide 705 pg/mL (<100)
[2024-05-24 07:34] LABS: Sodium 142 mmol/L (135-145)
[2024-05-24 07:35] LABS: Anion Gap 11 (12-20); Blood Urea Nitrogen 7 mg/dL (9-16); Carbon Dioxide 25 mmol/L (22-29); Chloride 109 mmol/L (96-108); Creatinine Clr Calc Pharmacy 94.7; Estimated Glomerular Filt Rate > 60; Glucose Random 86 mg/dL (60-115)
[2024-05-24 07:51] LABS: Potassium 2.8 mmol/L (3.3-5.1)
[2024-05-24] MEDS: FLUoxetine HCl 20 MG CAPSULE 40 MG PO (08:28)
[2024-05-24] MEDS: 0.9 % Sodium Chloride Flush 3 ML SYRINGE IVFLUSH ×2 (08:28→21:49)
[2024-05-24] MEDS: buPROPion HCl XL 300 MG TAB.ER.24H PO (08:28)
--- NOTE | 2024-05-24 08:28 | MHC.CM.PN ---
CM met with Patient at bedside. Patient lives in a house with her and her Mother and she is functionally independent. Home self care is the goal and CM has initiated and will follow for dc planning. PCP/FUNERAL COUNSELOR is Bert Cartagena and Patient's Daughter or will transport to home.
[2024-05-24] MEDS: guaiFENesin LA 600 MG TAB.ER.12H PO ×2 (08:29→21:06)
[2024-05-24] MEDS: Benzonatate 100 MG CAPSULE 200 MG PO ×3 (08:29→21:06)
[2024-05-24] MEDS: Potassium Chloride ER 20 MEQ TAB.ER.PRT 40 MEQ PO ×2 (08:29→12:21)
--- NOTE | 2024-05-24 11:44 | HO.PM.IMPN ---
Subjective Subjective Date of Service: 05/24/24 Interval History: seen and evaluated this morning feels better overall having fever but less chest pain Nasal bleed Decrease O2 requirements Trop trending down Review of Systems reported fever, chills and weakness having less left sided chest pain, palpitation has shortness of breath or coughing No abdominal pain, nausea or vomiting No urinary symptoms No any rash or wounds Physical Exam Vital Signs: Vital Signs: Last Vital Signs Temp 100.5 F H 05/24/24 10:55 Pulse 82 05/24/24 07:50 Resp 18 05/24/24 07:50 BP 110/69 05/24/24 07:50 Pulse Ox 97 05/24/24 07:50 O2 Del Method Nasal Cannula 05/24/24 07:50 O2 Flow Rate 6 05/24/24 07:50 BMI result Body Mass Index 24.0 Const: Other: Constitutional : Awake, interactive, not in distress Neck : Normal inspection, Supple Cardiovascular : RRR, no JVP, no lower extremity edema Respiratory : fair bilateral air entry, basal crackles bilaterally with decrease air entry , O2 supplement Gastrointestinal: soft, lax, Normal bowel sounds, Non tender Skin : Warm, Dry Neurological : Alert & oriented x3, No focal deficit Objective Data Active Medications Acetaminophen (Acetaminophen 325 Mg Tablet) 650 mg PO Q6H PRN PRN Reason: Pain, Mild (Pain Scale 1-3), fever or headache Last Admin: 05/24/24 10:55 Dose: 650 mg Documented By: JAZZY Benzonatate (Benzonatate 100 Mg Capsule) 200 mg PO TID [facility] Last Admin: 05/24/24 08:29 Dose: 200 mg Documented By: JAZZY Bupropion HCl (Bupropion Hcl Xl 300 Mg Tab.Er.24h) 300 mg PO DAILY [facility] Last Admin: 05/24/24 08:28 Dose: 300 mg Documented By: JAZZY Calcium Carbonate (Calcium Carbonate 750 Mg Tab.Chew) 750 mg PO Q4H PRN PRN Reason: Heartburn Enoxaparin Sodium (Enoxaparin Sodium 60 Mg/0.6 Ml Syringe) 60 mg SUBCUT Q12H [facility] Last Admin: 05/24/24 01:39 Dose: 60 mg Documented By: VETO Fluoxetine HCl (Fluoxetine Hcl 20 Mg Capsule) 40 mg PO DAILY [facility] Last Admin: 05/24/24 08:28 Dose: 40 mg Documented By: JAZZY Guaifenesin (Guaifenesin La 600 Mg Tab.Er.12h) 600 mg PO BID [facility] Last Admin: 05/24/24 08:29 Dose: 600 mg Documented By: JAZZY Hydromorphone HCl (Hydromorphone Hcl 0.5 Mg/0.5 Ml Syringe) 0.25 mg IVPUSH Q4H PRN; Protocol PRN Reason: Pain, Severe (Pain Scale 7-10) Norepinephrine Bitartrate (Levophed) 8 mg in 250 mls @ 0 mls/hr IVCONT .Q0M [facility]; Protocol Last Titration: 05/23/24 09:47 Dose: 0 mcg/kg/min, 0 mls/hr Documented By: JEREMIAH Ceftriaxone Sodium 1 gm/ (Sodium Chloride) 50 mls @ 100 mls/hr IV Q24H [facility] Azithromycin 500 mg/ Sodium (Chloride) 250 mls @ 125 mls/hr IV Q24H [facility] Last Infusion: 05/24/24 01:50 Dose: Infused Documented By: VETO Magnesium Hydroxide (Milk Of Magnesia 30 Ml Oral.Susp) 30 ml PO DAILY PRN PRN Reason: Constipation Melatonin (Melatonin 3 Mg Tablet) 6 mg PO BEDTIME PRN PRN Reason: Insomnia Last Admin: 05/24/24 01:38 Dose: 6 mg Documented By: VETO Ondansetron HCl (Ondansetron Hcl 4 Mg/2 Ml Vial) 4 mg IVPUSH Q8H PRN PRN Reason: Nausea and Vomiting Pharmacy Consult (Consult Rx Etoh Phenob Im/Po) 1 each MISCELLANE ONCE PRN; Protocol PRN Reason: Consult order Sodium Chloride (0.9 % Sodium Chloride Flush 3 Ml Syringe) 3 ml IVFLUSH QSHIFT [facility] Last Admin: 05/24/24 08:28 Dose: 3 ml Documented By: JAZZY Labs 05/24/24 06:32 05/24/24 06:32 Labs: Laboratory Results - last 24 hr 05/23/24 05/23/24 05/24/24 13:45 17:13 06:32 MCV 84.3 MCH 28.1 MCHC 33.3 RDW 13.6 Plt Count 229 MPV 10.5 Absolute Nucleated RBC 0.000 Nucleated RBC % (auto) 0.0 Anion Gap 11 L Estim Creat Clear Calc 94.7 Estimated GFR > 60 Random Glucose 86 Calcium 8.0 L D Troponin I High Sens 4713.1 H* D 5458.9 H* 1686.6 H* D B-Natriuretic Peptide 705 H Microbiology Microbiology Results: Microbiology 05/22/24 20:06 Blood Culture - Preliminary Blood - Venous No growth after 24 hours. 05/22/24 20:10 Blood Culture - Preliminary Blood - Venous No growth after 24 hours. 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 Septic shock 2/2 Pneumonia Shock resolved , received multiple IVF boluses and Albumen, pressors off 05/23 WBC trending down Pending blood cultures continue Azithromycin and Ceftriaxone Acute Pulmonary embolism CTA reporting non-occlusive Left sided PE check US LE Lovenox full dose for now Acute hypoxic respiratory failure 2/2 new onset CHF likely from IVF fluids to treat septic shock Hold on more IV lasix follow BNP check ECHO Elevated Trop I likely type 2 NSTEMI 2/2 septic shock and hypoxemia Trop from 38 to 4000+, trended down to 1500 this morning No EKG changes to suggest ACS, no more chest pain keep on Tele Hold on ASA, statin pending Echo, if abnormal consider cardiology consult Acute hypokalemia K 2.8 Give replacement and follow BMP Hx Alcohol abuse denies drinking for 8 months, Tox screen showed very low level of 11 ? keep on CIWA dc Phenobarb protocol Depression restart home medicaitons DVT PPx Lovenox The patient will need overnight hosptial stay for treatment of Hypoxia, sepsis, pneumonia pending final blood cultures and weaning down O2 supplement. Quality Stroke Does the patient have a stroke diagnosis?: No VTE Prior VTE?: No VTE Risk Level:: Medical - moderate - high VTE Device Contraindication: Treatment Not Indicated VTE Drug Contraindication: N/A - Med Ordered
[2024-05-24] MEDS: Furosemide 20 MG/2 ML VIAL IVPUSH (12:21)
[2024-05-24] MEDS: cefTRIAXone sodium 1 GM in 0.9 % Sodium Chloride 50 ML IV (12:24)
[2024-05-24 14:30] LABS: Anion Gap 12 (12-20); Blood Urea Nitrogen 7 mg/dL (9-16); Calcium 8.4 mg/dL (8.4-10.2); Carbon Dioxide 29 mmol/L (22-29); Chloride 106 mmol/L (96-108); Estimated Glomerular Filt Rate > 60; Glucose Random 116 mg/dL (60-115); Potassium 3.5 mmol/L (3.3-5.1); Sodium 143 mmol/L (135-145)
[2024-05-24] MEDS: Aspirin Enteric Coated 81 MG TABLET.DR PO (14:35)
[2024-05-24] MEDS: Azithromycin 500 MG in 0.9 % Sodium Chloride 250 ML 125 MG IV (14:36)
--- NOTE | 2024-05-24 16:13 | PM.CNCAR ---
History of Present Illness History of Present Illness Date of Service: 05/24/24 Chief complaint: severe sepsis, pneumonia, PE Narrative: This is a cardiology consultation regarding NSTEMI. Patient herself denies any cardiac issues in the past including coronary disease or cardiomyopathy or in fact any cardiac issues. There is history of alcohol excess but nothing in the last few months. She states that she has not been well in the last few weeks. She came for shortness of breath and cough along with fever for the last few weeks. To me, she states she has not had alcohol in months but in the H and P, there is mention of continue drinking alcohol. Then she was apparently hypotensive requiring fluids and pressors. Eventually, she is admitted to the floor for further care. She has had some nonspecific chest pains but nothing clearly exertional. As mentioned above, no known cardiac history. She states that she still feels feverish. She has also been diagnosed with pulmonary embolism this admission. Review of Systems Review of Systems: Yes all other systems are reviewed and are negative Constitutional: Constitutional: Reports as per HPI, Reports no additional constitutional complaints, Reports fatigue and Reports malaise Eyes: Eyes: Reports as per HPI and Denies no additional eye complaints ENT: Denies system reviewed and no additional complaints, except as documented and Reports as per HPI Cardiovascular: Cardiovascular: Reports as per HPI, Reports no additional cardiovascular complaints, Denies acrocyanosis, Denies cool extremities, Denies chest pain, Denies leg edema, Denies lightheadedness, Denies palpitations and Reports dyspnea Respiratory: Respiratory: Reports as per HPI, Denies no additional respiratory complaints, Reports cough, Reports pain on inspiration and Reports dyspnea Gastrointestinal: Gastrointestinal: Reports as per HPI and Denies no additional gastrointestinal complaints Genitourinary: Genitourinary: Reports as per HPI Musculoskeletal: Musculoskeletal: Reports no additional musculoskeletal complaints and Reports as per HPI Integumentary/Breasts: Skin/Breast: Reports system reviewed and no additional complaints, except as docu Neurologic: Reports system reviewed and no additional complaints, except as documented and Reports as per HPI Psychiatric: Psychiatric: Reports no additional psychiatric complaints and Reports as per HPI Endocrine: Endocrine: Reports no additional endocrine complaints, Reports as per HPI, Reports fatigue and Denies palpitations Hematologic/Lymphatic: Hematologic/Lymphatic: Reports no additional hematologic/lymphatic complaints and Reports as per HPI Allergic/Immunologic: Allergic/Immunologic: Reports no additional allergic/immunologic complaints and Reports as per [facility] Past Medical History Medical History Suicide attempt Alcoholism Family History Pertinent family history: No major cardiac issues and family. Surgical History Surgical History History of bladder surgery Social History Social History Household Members: Spouse and Family Housing: House Do you presently have visiting nurse or other home services: No Alcohol intake: current Alcohol intake frequency: holidays/special occasions only Alcohol type: beer Comment: see previous admission note Patient Tobacco Use Status: Former Tobacco user e-Cigarette/Vaping Use: Currently Using [employer] service: No Current occupational status: unemployed Current occupational exposures/hazards: No Cognitive needs: No Hearing needs: No Vision needs: Yes Meds Allergies Allergy/AdvReac Type Severity Reaction Status Date / Time No Known Allergies Allergy Verified 05/22/24 18:08 [No Known Allergies*] Active Medications: Current Medications Acetaminophen (Acetaminophen 325 Mg Tablet) 650 mg PO Q6H PRN PRN Reason: Pain, Mild (Pain Scale 1-3), fever or headache Last Admin: 05/24/24 10:55 Dose: 650 mg Aspirin (Aspirin Enteric Coated 81 Mg Tablet.Dr) 81 mg PO DAILY [facility] Last Admin: 05/24/24 14:35 Dose: 81 mg Atorvastatin Calcium (Atorvastatin Calcium 40 Mg Tablet) 40 mg PO BEDTIME [facility] Benzonatate (Benzonatate 100 Mg Capsule) 200 mg PO TID [facility] Last Admin: 05/24/24 14:35 Dose: 200 mg Bupropion HCl (Bupropion Hcl Xl 300 Mg Tab.Er.24h) 300 mg PO DAILY [facility] Last Admin: 05/24/24 08:28 Dose: 300 mg Calcium Carbonate (Calcium Carbonate 750 Mg Tab.Chew) 750 mg PO Q4H PRN PRN Reason: Heartburn Enoxaparin Sodium (Enoxaparin Sodium 60 Mg/0.6 Ml Syringe) 60 mg SUBCUT Q12H [facility] Last Admin: 05/24/24 14:38 Dose: 60 mg Fluoxetine HCl (Fluoxetine Hcl 20 Mg Capsule) 40 mg PO DAILY [facility] Last Admin: 05/24/24 08:28 Dose: 40 mg Guaifenesin (Guaifenesin La 600 Mg Tab.Er.12h) 600 mg PO BID [facility] Last Admin: 05/24/24 08:29 Dose: 600 mg Hydromorphone HCl (Hydromorphone Hcl 0.5 Mg/0.5 Ml Syringe) 0.25 mg IVPUSH Q4H PRN; Protocol PRN Reason: Pain, Severe (Pain Scale 7-10) Norepinephrine Bitartrate (Levophed) 8 mg in 250 mls @ 0 mls/hr IVCONT .Q0M [facility]; Protocol Last Titration: 05/23/24 09:47 Dose: 0 mcg/kg/min, 0 mls/hr Ceftriaxone Sodium 1 gm/ (Sodium Chloride) 50 mls @ 100 mls/hr IV Q24H [facility] Last Infusion: 05/24/24 13:21 Dose: Infused Azithromycin 500 mg/ Sodium (Chloride) 250 mls @ 125 mls/hr IV Q24H [facility] Last Admin: 05/24/24 14:36 Dose: 125 mls/hr Magnesium Hydroxide (Milk Of Magnesia 30 Ml Oral.Susp) 30 ml PO DAILY PRN PRN Reason: Constipation Melatonin (Melatonin 3 Mg Tablet) 6 mg PO BEDTIME PRN PRN Reason: Insomnia Last Admin: 05/24/24 01:38 Dose: 6 mg Ondansetron HCl (Ondansetron Hcl 4 Mg/2 Ml Vial) 4 mg IVPUSH Q8H PRN PRN Reason: Nausea and Vomiting Pharmacy Consult (Consult Rx Etoh Phenob Im/Po) 1 each MISCELLANE ONCE PRN; Protocol PRN Reason: Consult order Sodium Chloride (0.9 % Sodium Chloride Flush 3 Ml Syringe) 3 ml IVFLUSH QSHIFT [facility] Last Admin: 05/24/24 16:09 Dose: Not Given Home Medications ?Medication ?Instructions ?Recorded ?Confirmed ?Last Taken ?Type bupropion HCl 300 mg 24 hr tablet, 300 mg PO DAILY 05/23/24 05/23/24 05/22/24 History extended release (Wellbutrin XL) Physical Exam Vital Signs: Vital Signs: Last Vital Signs Temp 98.8 F 05/24/24 15:35 Pulse 97 05/24/24 15:35 Resp 18 05/24/24 15:35 BP 148/80 H 05/24/24 15:35 Pulse Ox 95 05/24/24 15:35 O2 Del Method Nasal Cannula 05/24/24 15:35 O2 Flow Rate 2 05/24/24 15:35 BMI result Body Mass Index 24.0 Const: General: comfortable and no acute distress Orientation/consciousness: patient oriented x3 HEENT: Other: Unremarkable Head: Yes normal to inspection Neck: Neck: Yes normal visual inspection Chest: Chest palpation & inspection: normal inspection of the chest Resp: Other: Few inspiratory crackles Cardio: Palpation: normal PMI Heart sounds: S1 normal heart sound present, S2 normal heart sound present, no gallops, no murmurs and no rubs GI: Palpation (GI): Soft to palpation Back/Spine/Pelvis: Other: unremarkable Skin: General skin exam: no rashes or lesions noted Neuro: General: patient oriented x3 Extrem: General: Yes normal to inspection Psych: Mental Status: mental status grossly normal Objective Labs and Meds 05/24/24 06:32 05/24/24 14:07 Lab results: Laboratory Results - last 24 hr 05/23/24 05/24/24 05/24/24 17:13 06:32 14:07 WBC 11.6 H RBC 3.38 L Hgb 9.5 L Hct 28.5 L MCV 84.3 MCH 28.1 MCHC 33.3 RDW 13.6 Plt Count 229 MPV 10.5 Absolute Nucleated RBC 0.000 Nucleated RBC % (auto) 0.0 Sodium 142 143 Potassium 2.8 L* 3.5 D Chloride 109 H 106 Carbon Dioxide 25 29 Anion Gap 11 L 12 BUN 7 L 7 L Creatinine 0.60 0.71 Estim Creat Clear Calc 94.7 80.0 Estimated GFR > 60 > 60 Random Glucose 86 116 H Calcium 8.0 L D 8.4 Troponin I High Sens 5458.9 H* 1686.6 H* D B-Natriuretic Peptide 705 H ECG Interpretation: EKG with underlying sinus rhythm at 94/Min; cannot exclude old anterior infarct but could be from lead placement and body habitus. Normal SD and corrected QT. Imaging Radiologist's impression: Impressions Chest X-Ray 05/24/24 09:35 IMPRESSION: Small left pleural effusion has decreased with decreased left basilar opacities. Persistent small right pleural effusion with persistent right basilar opacities. This study was presented today, May 24, 2024, for interpretation. Stat results provided at this time as requested by referring provider. Electronically signed by: Vikki Alicea MD 05/24/2024 10:59 AM EDT RP Venous Duplex 05/24/24 10:21 IMPRESSION: No evidence of deep venous thrombosis involving the bilateral lower extremities. Electronically signed by: Marni Marshall MD 05/24/2024 12:16 PM EDT RP Assessment and Plan (1) NSTEMI (non-ST elevated myocardial infarction): Status: Acute Plan Troponin levels reviewed. They started 8.9, peaked at 5458 and then started coming down to 1686. In the echocardiogram, LVEF is low normal at 53%. Basal inferior akinesis. Chest CTA with lingular/left lower lobe pneumonia as well as acute pulmonary embolus in the left lower lobe segmental branch. Troponin elevation could be related to demand related NSTEMI in setting of acute medical issues. Can treat with full-dose anticoagulation with either IV heparin or Lovenox for 48 hours. Then switched to anticoagulation for pulmonary embolism. Aspirin, statins. As she has had pressor dependent hypotension, may not be able tolerate beta-blockers at this time but we can consider that once the blood pressure remained stable. Treat acute infection issues. Will follow with you. Eventually, ischemic workup and we can decide between a stress test versus catheterization. Discussed with Dr. Johnson. Procedures Date of Service Date of Service: 05/24/24
[2024-05-24] MEDS: HYDROmorphone HCl 0.5 MG/0.5 ML SYRINGE 0.25 MG IVPUSH ×2 (16:31→23:09)
[2024-05-24] MEDS: Piperacillin Sodium/Tazobactam 4.5 GM in 0.9 % Sodium Chloride 100 ML IV ×2 (17:10→21:48)
[2024-05-24] MEDS: Atorvastatin Calcium 40 MG TABLET PO (21:06)
[2024-05-25] VITALS (7 sets, daily range): BP systolic 121–130; BP diastolic 75–84; PULSE 66–94; RESP 16–20; TEMP 36.4–37.9; O2SAT 92–97
[2024-05-25] MEDS: Enoxaparin Sodium 60 MG/0.6 ML SYRINGE SUBCUT ×2 (01:22→14:29)
[2024-05-25] MEDS: Piperacillin Sodium/Tazobactam 4.5 GM in 0.9 % Sodium Chloride 100 ML IV ×4 (05:22→21:51)
[2024-05-25 07:00] LABS: Hematocrit 29.6 % (37.0-47.0); Hemoglobin 10.1 g/dl (12.0-16.0); Mean Corpuscular HGB Conc 34.1 g/dl (31.0-35.0); Mean Corpuscular Hemoglobin 28.5 pg (27.0-33.0); Mean Corpuscular Volume 83.6 fL (80.0-98.0); Mean Platelet Volume 10.3 fL (9.4-12.3); Platelet Count 270 X10*3/uL (160-400); Red Blood Count 3.54 X10*6/uL (4.20-5.50); Red Cell Distribution Width 13.4 % (11.0-16.0); White Blood Count 9.8 X10*3/uL (4.8-10.8)
[2024-05-25 07:13] LABS: B Type Natriuretic Peptide 648 pg/mL (<100)
[2024-05-25 07:38] LABS: Alanine Aminotransferase 24 U/L (0-31); Albumin Level 3.4 g/dL (3.5-5.0); Alkaline Phosphatase 76 U/L (39-117); Anion Gap 12 (12-20); Aspartate Amino Transferase 18 U/L (5-31); Bilirubin Direct 0.2 mg/dL (0.0-0.5); Bilirubin Total 0.4 mg/dL (0.0-1.0); Blood Urea Nitrogen 8 mg/dL (9-16); Calcium 8.5 mg/dL (8.4-10.2); Carbon Dioxide 27 mmol/L (22-29); Chloride 103 mmol/L (96-108); Cholesterol 110 mg/dL (<200); Creatinine Clr Calc Pharmacy 87.4; Estimated Glomerular Filt Rate > 60; Glucose Random 91 mg/dL (60-115); HDL Cholesterol 25 mg/dL (>40); LDL Cholesterol Calculated 68 mg/dL (<100); Magnesium 1.4 mg/dL (1.6-2.6); Potassium 3.4 mmol/L (3.3-5.1); Sodium 139 mmol/L (135-145); Total Protein 5.8 g/dL (6.5-8.0); Triglycerides 88 mg/dL (<150)
[2024-05-25] MEDS: Benzonatate 100 MG CAPSULE 200 MG PO ×3 (08:10→20:07)
[2024-05-25] MEDS: Magnesium Oxide 400 MG TABLET 800 MG PO ×2 (08:10→16:50)
[2024-05-25] MEDS: Aspirin Enteric Coated 81 MG TABLET.DR PO (08:10)
[2024-05-25] MEDS: FLUoxetine HCl 20 MG CAPSULE 40 MG PO (08:10)
[2024-05-25] MEDS: buPROPion HCl XL 300 MG TAB.ER.24H PO (08:10)
[2024-05-25] MEDS: 0.9 % Sodium Chloride Flush 3 ML SYRINGE IVFLUSH ×3 (08:10→20:08)
[2024-05-25] MEDS: Acetaminophen 325 MG TABLET 650 MG PO ×2 (08:11→20:08)
[2024-05-25] MEDS: guaiFENesin LA 600 MG TAB.ER.12H PO ×2 (08:11→20:07)
--- NOTE | 2024-05-25 10:42 | PM.PNCARD ---
Subjective Subjective Date of Service: 05/25/24 Interval history: She is still having some left-sided chest pain which is pleuritic but otherwise feels okay. Some slight feverishness. Review of Systems Review of Systems Yes all other systems are reviewed and are negative Constitutional: Reports as per HPI and Reports no additional constitutional complaints Eyes: Reports as per HPI and Denies no additional eye complaints Denies system reviewed and no additional complaints, except as documented and Reports as per HPI Cardiovascular: Reports as per HPI, Reports no additional cardiovascular complaints, Denies acrocyanosis, Denies cool extremities, Denies chest pain, Denies leg edema, Denies lightheadedness, Denies palpitations and Denies dyspnea Respiratory: Reports as per HPI, Denies no additional respiratory complaints and Denies dyspnea Gastrointestinal: Reports as per HPI and Denies no additional gastrointestinal complaints Genitourinary: Reports as per HPI Musculoskeletal: Reports no additional musculoskeletal complaints and Reports as per HPI Skin/Breast: Reports system reviewed and no additional complaints, except as docu Reports system reviewed and no additional complaints, except as documented and Reports as per HPI Psychiatric: Reports no additional psychiatric complaints and Reports as per HPI Endocrine: Reports no additional endocrine complaints, Reports as per HPI and Denies palpitations Hematologic/Lymphatic: Reports no additional hematologic/lymphatic complaints and Reports as per HPI Allergic/Immunologic: Reports no additional allergic/immunologic complaints and Reports as per HPI Physical Exam Vital Signs: Last Vital Signs Temp 100.2 F 05/25/24 08:00 Pulse 94 05/25/24 08:00 Resp 18 05/25/24 08:00 BP 129/82 05/25/24 08:00 Pulse Ox 95 05/25/24 08:00 O2 Del Method Nasal Cannula 05/25/24 08:00 O2 Flow Rate 3 05/25/24 08:00 BMI result Body Mass Index 24.0 Const General: comfortable and no acute distress Orientation/consciousness: patient oriented x3 HEENT Other: Unremarkable Head: Yes normal to inspection Neck Neck: Yes normal visual inspection Chest Chest palpation & inspection: normal inspection of the chest Resp Auscultation: crackles Cardio Palpation: normal PMI Heart sounds: S1 normal heart sound present, S2 normal heart sound present, no gallops, no murmurs and no rubs GI Palpation (GI): Soft to palpation Back/Spine/Pelvis Other: unremarkable Skin General skin exam: no rashes or lesions noted Neuro General: patient oriented x3 Extrem General: Yes normal to inspection Psych Mental Status: mental status grossly normal Objective Labs and Meds 05/25/24 06:08 05/25/24 06:08 Lab results: Laboratory Results - last 24 hr 05/24/24 05/25/24 14:07 06:08 WBC 9.8 RBC 3.54 L Hgb 10.1 L Hct 29.6 L MCV 83.6 MCH 28.5 MCHC 34.1 RDW 13.4 Plt Count 270 MPV 10.3 Absolute Nucleated RBC 0.000 Nucleated RBC % (auto) 0.0 Sodium 143 139 Potassium 3.5 D 3.4 Chloride 106 103 Carbon Dioxide 29 27 Anion Gap 12 12 BUN 7 L 8 L Creatinine 0.71 0.65 Estim Creat Clear Calc 80.0 87.4 Estimated GFR > 60 > 60 Random Glucose 116 H 91 Calcium 8.4 8.5 Magnesium 1.4 L* Total Bilirubin 0.4 Direct Bilirubin 0.2 AST 18 ALT 24 Alkaline Phosphatase 76 B-Natriuretic Peptide 648 H Total Protein 5.8 L Albumin 3.4 L Triglycerides 88 Cholesterol 110 LDL Cholesterol, Calc 68 HDL Cholesterol 25 L Imaging Radiologist's impression: Impressions Chest X-Ray 05/24/24 09:35 IMPRESSION: Small left pleural effusion has decreased with decreased left basilar opacities. Persistent small right pleural effusion with persistent right basilar opacities. This study was presented today, May 24, 2024, for interpretation. Stat results provided at this time as requested by referring provider. Electronically signed by: Vikki Alicea MD 05/24/2024 10:59 AM EDT RP Venous Duplex 05/24/24 10:21 IMPRESSION: No evidence of deep venous thrombosis involving the bilateral lower extremities. Electronically signed by: Marni Marshall MD 05/24/2024 12:16 PM EDT Progress Note: A&P Assessment and plan (1) NSTEMI (non-ST elevated myocardial infarction): Status: Acute Plan Troponin levels reviewed. They started 8.9, peaked at 5458 and then started coming down to 1686. In the echocardiogram, LVEF is low normal at 53%. Basal inferior akinesis. Chest CTA with lingular/left lower lobe pneumonia as well as acute pulmonary embolus in the left lower lobe segmental branch. Troponin elevation could be related to demand related NSTEMI in setting of acute medical issues, including pressor dependent hypotension. Continue treatment of primary issue with antibiotics. With regard to the NSTEMI, IV heparin or full-dose Lovenox for 48 hours at least. Aspirin/statins. Low-dose beta-blockers are okay if she can tolerate. Eventually, ischemia workup. Timing to be decided. Discussed with patient about the plan and she agrees. Time Spent With Patient Time: Total time managing care of this patient today ____ minutes. Progress Note: Quality Stroke Does the patient have a stroke diagnosis?: No Procedures Date of Service Date of Service: 05/25/24
--- NOTE | 2024-05-25 11:19 | P.PNIM_ITS ---
Subjective Subjective Date of Service: 05/25/24 Interval History: ongoing fevers, left chest pain Physical Exam 2 Vital Signs: Vital Signs: Last Vital Signs Temp 100.2 F 05/25/24 08:00 Pulse 94 05/25/24 08:00 Resp 18 05/25/24 08:00 BP 129/82 05/25/24 08:00 Pulse Ox 95 05/25/24 08:00 O2 Del Method Nasal Cannula 05/25/24 08:00 O2 Flow Rate 3 05/25/24 08:00 BMI result Body Mass Index 24.0 Const: General: comfortable and no acute distress O rientation/consciousness: patient oriented x3 HEENT: Other: Unremarkable Head: Yes normal to inspection Neck: Neck: Yes normal visual inspection Chest: Chest palpation & inspection: normal inspection of the chest Resp: Auscultation: crackles Cardio: Palpation: normal PMI Heart sounds: S1 normal heart sound present, S2 normal heart sound present, no gallops, no murmurs and no rubs GI: Palpation (GI): Soft to palpation Back/Spine/Pelvis: Other: unremarkable Skin: General skin exam: no rashes or lesions noted Neuro: General: patient oriented x3 Extrem: General: Yes normal to inspection Psych: Mental Status: mental status grossly normal Objective Data Active Medications Acetaminophen (Acetaminophen 325 Mg Tablet) 650 mg PO Q6H PRN PRN Reason: Pain, Mild (Pain Scale 1-3), fever or headache Last Admin: 05/25/24 08:11 Dose: 650 mg Documented By: JAZZY Aspirin (Aspirin Enteric Coated 81 Mg Tablet.Dr) 81 mg PO DAILY [facility] Last Admin: 05/25/24 08:10 Dose: 81 mg Documented By: JAZZY Atorvastatin Calcium (Atorvastatin Calcium 40 Mg Tablet) 40 mg PO BEDTIME [facility] Last Admin: 05/24/24 21:06 Dose: 40 mg Documented By: ISMAEL Benzonatate (Benzonatate 100 Mg Capsule) 200 mg PO TID [facility] Last Admin: 05/25/24 08:10 Dose: 200 mg Documented By: JAZZY Bupropion HCl (Bupropion Hcl Xl 300 Mg Tab.Er.24h) 300 mg PO DAILY [facility] Last Admin: 05/25/24 08:10 Dose: 300 mg Documented By: JAZZY Calcium Carbonate (Calcium Carbonate 750 Mg Tab.Chew) 750 mg PO Q4H PRN PRN Reason: Heartburn Enoxaparin Sodium (Enoxaparin Sodium 60 Mg/0.6 Ml Syringe) 60 mg SUBCUT Q12H [facility] Last Admin: 05/25/24 01:22 Dose: 60 mg Documented By: ISMAEL Fluoxetine HCl (Fluoxetine Hcl 20 Mg Capsule) 40 mg PO DAILY [facility] Last Admin: 05/25/24 08:10 Dose: 40 mg Documented By: JAZZY Guaifenesin (Guaifenesin La 600 Mg Tab.Er.12h) 600 mg PO BID [facility] Last Admin: 05/25/24 08:11 Dose: 600 mg Documented By: JAZZY Hydromorphone HCl (Hydromorphone Hcl 0.5 Mg/0.5 Ml Syringe) 0.25 mg IVPUSH Q4H PRN; Protocol PRN Reason: Pain, Severe (Pain Scale 7-10) Last Admin: 05/24/24 23:09 Dose: 0.25 mg Documented By: ISMAEL Azithromycin 500 mg/ Sodium (Chloride) 250 mls @ 125 mls/hr IV Q24H [facility] Last Infusion: 05/24/24 16:37 Dose: Infused Documented By: JAZZY Piperacillin Sod/Tazobactam (Sod 4.5 gm/ Sodium Chloride) 100 mls @ 200 mls/hr IV Q6H [facility] Last Admin: 05/25/24 10:41 Dose: 200 mls/hr Documented By: JAZZY Magnesium Hydroxide (Milk Of Magnesia 30 Ml Oral.Susp) 30 ml PO DAILY PRN PRN Reason: Constipation Magnesium Oxide (Magnesium Oxide 400 Mg Tablet) [facility] Last Admin: 05/25/24 08:10 Dose: 800 mg Documented By: JAZZY Melatonin (Melatonin 3 Mg Tablet) 6 mg PO BEDTIME PRN PRN Reason: Insomnia Last Admin: 05/24/24 21:48 Dose: 6 mg Documented By: SIMAEL Metoprolol Tartrate (Metoprolol Tartrate 12.5 Mg Halftab) 12.5 mg PO BID [facility]; Protocol Ondansetron HCl (Ondansetron Hcl 4 Mg/2 Ml Vial) 4 mg IVPUSH Q8H PRN PRN Reason: Nausea and Vomiting Pharmacy Consult (Consult Rx Etoh Phenob Im/Po) 1 each MISCELLANE ONCE PRN; Protocol PRN Reason: Consult order Sodium Chloride (0.9 % Sodium Chloride Flush 3 Ml Syringe) [facility] Last Admin: 05/25/24 08:10 Dose: 3 ml Documented By: JAZZY Labs 05/25/24 06:08 05/25/24 06:08 Labs: Laboratory Results - last 24 hr 05/24/24 05/25/24 14:07 06:08 MCV 83.6 MCH 28.5 MCHC 34.1 RDW 13.4 Plt Count 270 MPV 10.3 Absolute Nucleated RBC 0.000 Nucleated RBC % (auto) 0.0 Anion Gap 12 12 Estim Creat Clear Calc 80.0 87.4 Estimated GFR > 60 > 60 Random Glucose 116 H 91 Calcium 8.4 8.5 Magnesium 1.4 L* Total Bilirubin 0.4 Direct Bilirubin 0.2 AST 18 ALT 24 Alkaline Phosphatase 76 B-Natriuretic Peptide 648 H Total Protein 5.8 L Albumin 3.4 L Triglycerides 88 Cholesterol 110 LDL Cholesterol, Calc 68 HDL Cholesterol 25 L Microbiology Microbiology Results: Microbiology 05/22/24 20:06 Blood Culture - Preliminary Blood - Venous No growth after 48 hours. 05/22/24 20:10 Blood Culture - Preliminary Blood - Venous No growth after 48 hours. Assessment and Plan (1) New onset of congestive heart failure: Status: Acute (2) Septic shock: Status: Acute (3) Sepsis: Status: Acute (4) Pulmonary embolism: Status: Acute (5) Multifocal pneumonia: Status: Acute (6) Acute hypokalemia: Status: Acute Plan 54F PMH of anxiety, depression and alcohol dependence presented to the hospital complaining of SOB, cough and fever for 2-3 weeks [employer]. Acute hypoxic respiratory failure and Septic shock 2/2 Pneumonia Shock resolved , received multiple IVF boluses and Albumen, pressors off 05/23 follow up blood cultures continue Azithromycin and zosyn Wean O2 as tolerated Acute nonocclusive segmental left lower lobe Pulmonary embolism Lovenox full dose for now Palm eval - ? Significance of finding, need for ongoing anticoagulation/ duration NSTEMI Likely demand ischemia from sepsis in the setting of undiagnosed underlying coronary disease Continue Lovenox therapeutic, aspirin, statin, beta-cara Echo with basal inferior akinesis Will need ischemic workup when sepsis resolved Acute hypokalemia And acute hypomagnesemia Replace and monitor Alcohol dependence Monitor CIWA Depression Continue fluoxetine DVT PPx Lovenox full code reason for continued hospitalization:hypoxia Quality Stroke Does the patient have a stroke diagnosis?: No VTE Prior VTE?: No VTE Risk Level:: Medical - moderate - high VTE Device Contraindication: Treatment Not Indicated VTE Drug Contraindication: N/A - Med Ordered
[2024-05-25] MEDS: Azithromycin 500 MG in 0.9 % Sodium Chloride 250 ML 125 MG IV (14:29)
--- NOTE | 2024-05-25 14:56 | P.CONPL_ITS ---
History of Present Illness History of Present Illness Consult date: 05/25/24 Chief complaint: severe sepsis, pneumonia, PE Narrative: 54-year-old lady, nonsmoker, but does use vaping products with no prior pulmonary medical history admitted to [facility] on 05/23/2024 with dyspnea and noted to have left-sided pneumonia and left segmental pulmonary emboli. Patient started on empiric antibiotics and anticoagulation with significant improvement. Patient states that she does not have family history of hypercoagulable diseases. She does drive back and forth to work [address], however she states that her work is rather active. She has no other precipitating factors for possible pulmonary emboli. Review of Systems 2 Constitutional: Constitutional: Denies daytime sleepiness, Denies excessive sweating, Denies fatigue, Denies fever(s), Denies lethargy, Denies malaise, Denies night sweats, Denies snoring and Denies weight loss Eyes: Eyes: Denies blurry vision and Denies itchy eyes ENT: Denies nasal congestion, Denies post nasal drip, Denies sinus pain, Denies sinus pressure and Denies other ( Thrush) Cardiovascular: Cardiovascular: Denies chest pain, Denies pedal edema, Denies dyspnea, Denies orthopnea and Denies paroxysmal nocturnal dyspnea Respiratory: Respiratory: Denies cough, Denies hemoptysis, Denies excessive phlegm production, Denies dyspnea, Denies snoring and Denies wheezing Gastrointestinal: Gastrointestinal: Denies abdominal pain and Denies heartburn Musculoskeletal: Musculoskeletal: Denies myalgias, Denies arthralgias and Denies joint swelling Integumentary/Breasts: Skin/Breast: Denies rash Neurologic: Denies memory loss and Denies seizure-like activity Psychiatric: Psychiatric: Denies abnormal sleep pattern, Denies anxiety and Denies memory loss Endocrine: Endocrine: Denies excessive sweating, Denies fatigue and Denies heat intolerance Hematologic/Lymphatic: Hematologic/Lymphatic: Denies easy bruising Allergic/Immunologic: Allergic/Immunologic: Denies itchy eyes, Denies seasonal rhinorrhea and Denies wheezing PMFSH Past Medical History Medical History Suicide attempt Alcoholism Surgical History Surgical History History of bladder surgery Social History Social History Household Members: Spouse and Family Housing: House Do you presently have visiting nurse or other home services: No Alcohol intake: current Alcohol intake frequency: holidays/special occasions only Alcohol type: beer Comment: see previous admission note Patient Tobacco Use Status: Former Tobacco user e-Cigarette/Vaping Use: Currently Using service: No Current occupational status: unemployed Current occupational exposures/hazards: No Cognitive needs: No Hearing needs: No Vision needs: Yes Meds Allergies Allergy/AdvReac Type Severity Reaction Status Date / Time No Known Allergies Allergy Verified 05/22/24 18:08 [No Known Allergies*] Active Medications: Current Medications Acetaminophen (Acetaminophen 325 Mg Tablet) 650 mg PO Q6H PRN PRN Reason: Pain, Mild (Pain Scale 1-3), fever or headache Last Admin: 05/25/24 08:11 Dose: 650 mg Aspirin (Aspirin Enteric Coated 81 Mg Tablet.Dr) 81 mg PO DAILY [facility] Last Admin: 05/25/24 08:10 Dose: 81 mg Atorvastatin Calcium (Atorvastatin Calcium 40 Mg Tablet) 40 mg PO BEDTIME [facility] Last Admin: 05/24/24 21:06 Dose: 40 mg Benzonatate (Benzonatate 100 Mg Capsule) 200 mg PO TID [facility] Last Admin: 05/25/24 14:30 Dose: 200 mg Bupropion HCl (Bupropion Hcl Xl 300 Mg Tab.Er.24h) 300 mg PO DAILY [facility] Last Admin: 05/25/24 08:10 Dose: 300 mg Calcium Carbonate (Calcium Carbonate 750 Mg Tab.Chew) 750 mg PO Q4H PRN PRN Reason: Heartburn Enoxaparin Sodium (Enoxaparin Sodium 60 Mg/0.6 Ml Syringe) 60 mg SUBCUT Q12H [facility] Last Admin: 05/25/24 14:29 Dose: 60 mg Fluoxetine HCl (Fluoxetine Hcl 20 Mg Capsule) 40 mg PO DAILY [facility] Last Admin: 05/25/24 08:10 Dose: 40 mg Guaifenesin (Guaifenesin La 600 Mg Tab.Er.12h) 600 mg PO BID [facility] Last Admin: 05/25/24 08:11 Dose: 600 mg Hydromorphone HCl (Hydromorphone Hcl 0.5 Mg/0.5 Ml Syringe) 0.25 mg IVPUSH Q4H PRN; Protocol PRN Reason: Pain, Severe (Pain Scale 7-10) Last Admin: 05/24/24 23:09 Dose: 0.25 mg Azithromycin 500 mg/ Sodium (Chloride) 250 mls @ 125 mls/hr IV Q24H [facility] Last Admin: 05/25/24 14:29 Dose: 125 mls/hr Piperacillin Sod/Tazobactam (Sod 4.5 gm/ Sodium Chloride) 100 mls @ 200 mls/hr IV Q6H [facility] Last Infusion: 05/25/24 11:24 Dose: Infused Magnesium Hydroxide (Milk Of Magnesia 30 Ml Oral.Susp) 30 ml PO DAILY PRN PRN Reason: Constipation Magnesium Oxide ([facility]ide 400 Mg Tablet) [facility] Last Admin: 05/25/24 08:10 Dose: 800 mg Melatonin (Melatonin 3 Mg Tablet) 6 mg PO BEDTIME PRN PRN Reason: Insomnia Last Admin: 05/24/24 21:48 Dose: 6 mg Metoprolol Tartrate (Metoprolol Tartrate 12.5 Mg Halftab) 12.5 mg PO BID [facility]; Protocol Ondansetron HCl (Ondansetron Hcl 4 Mg/2 Ml Vial) 4 mg IVPUSH Q8H PRN PRN Reason: Nausea and Vomiting Pharmacy Consult (Consult Rx Etoh Phenob Im/Po) 1 each MISCELLANE ONCE PRN; Protocol PRN Reason: Consult order Sodium Chloride (0.9 % Sodium Chloride Flush 3 Ml Syringe) [facility] Last Admin: 05/25/24 14:30 Dose: 3 ml Home Medications ?Medication ?Instructions ?Recorded ?Confirmed ?Last Taken ?Type bupropion HCl 300 mg 24 hr tablet, 300 mg PO DAILY 05/23/24 05/23/24 05/22/24 History extended release (Wellbutrin XL) Physical Exam 2 Vital Signs: Vital Signs: Last Vital Signs Temp 99.0 F 05/25/24 12:00 Pulse 75 05/25/24 12:00 Resp 20 05/25/24 12:00 BP 121/80 05/25/24 12:00 Pulse Ox 95 05/25/24 12:00 O2 Del Method Nasal Cannula 05/25/24 12:00 O2 Flow Rate 3 05/25/24 12:00 BMI result Body Mass Index 24.0 Const: General: no acute distress and alert Nutritional Appearance: not obese Orientation/consciousness: Other orientation findings ( oriented) HEENT: Head: Yes atraumatic Eyes: General: appearance normal, both eyes and all related structures S clerae: sclerae normal EOM: EOMs intact bilaterally Neck: Neck: Yes supple Lymphatic: no lymphadenopathy noted Resp: Effort & Inspection: normal respiratory effort and no use of accessory muscles Auscultation: clear to auscultation bilaterally Cardio: Rate: regular rate Rhythm: regular rhythm Heart sounds: no gallops, no murmurs and no rubs Skin: General skin exam: other ( warm) Extrem: General: No clubbing, No cyanosis and No edema Results Laboratory Findings 05/25/24 06:08 05/25/24 06:08 ABG, PT/INR, D-dimer: PT/INR, D-dimer PT 14.2 SEC (10.9-12.4) H 05/22/24 18:29 INR 1.2 (0.9-1.1) H 05/22/24 18:29 Abnormal lab findings: Abnormal Labs 05/22/24 05/23/24 05/23/24 18:29 01:04 06:09 WBC 17.0 H 18.5 H RBC 3.56 L Hgb 10.4 L Hct 35.9 L 30.5 L Immature Gran % (Auto) 0.8 H Neut % (Auto) 91.0 H Lymph % (Auto) 2.8 L Lymph # (Auto) 0.5 L Abs Immat Gran (auto) 0.13 H Absolute Neuts (auto) 15.5 H PT 14.2 H INR 1.2 H Sodium 134 L Potassium Chloride Anion Gap BUN 8 L Random Glucose Calcium Magnesium Troponin I High Sens 30.7 H D B-Natriuretic Peptide 208 H Total Protein Albumin HDL Cholesterol 05/23/24 05/23/24 05/24/24 13:45 17:13 06:32 WBC 11.6 H RBC 3.38 L Hgb 9.5 L Hct 28.5 L Immature Gran % (Auto) Neut % (Auto) Lymph % (Auto) Lymph # (Auto) Abs Immat Gran (auto) Absolute Neuts (auto) PT INR Sodium Potassium 2.8 L* Chloride 109 H Anion Gap 11 L BUN 7 L Random Glucose Calcium 8.0 L D Magnesium Troponin I High Sens 4713.1 H* D 5458.9 H* 1686.6 H* D B-Natriuretic Peptide 705 H Total Protein Albumin HDL Cholesterol 05/24/24 05/25/24 14:07 06:08 WBC RBC 3.54 L Hgb 10.1 L Hct 29.6 L Immature Gran % (Auto) Neut % (Auto) Lymph % (Auto) Lymph # (Auto) Abs Immat Gran (auto) Absolute Neuts (auto) PT INR Sodium Potassium Chloride Anion Gap BUN 7 L 8 L Random Glucose 116 H Calcium Magnesium 1.4 L* Troponin I High Sens B-Natriuretic Peptide 648 H Total Protein 5.8 L Albumin 3.4 L HDL Cholesterol 25 L Microbiology: Microbiology 05/22/24 20:06 Blood - Venous Blood Culture - Preliminary No growth after 48 hours. 05/22/24 20:10 Blood - Venous Blood Culture - Preliminary No growth after 48 hours. Assessment and Plan (1) Pulmonary embolism: Status: Acute (2) Multifocal pneumonia: Status: Acute (3) Acute respiratory failure with hypoxia: Status: Acute Plan Impression: 54-year-old lady admitted with dyspnea and hypoxia secondary to pneumonia and left-sided segmental pulmonary emboli, now on empiric antibiotics and circulation slowly improving, however still requires supplemental oxygen. Recommendations: Appears to have unprovoked pulmonary emboli, would suggest anticoagulation for 6 months and outpatient follow-up with further workup either with hematology or pulmonology. Agree with empiric antibiotics for community- acquired pneumonia. Procedures Date of Service Date of Service: 05/25/24
[2024-05-25] MEDS: Atorvastatin Calcium 40 MG TABLET PO (20:07)
[2024-05-25] MEDS: Metoprolol Tartrate 12.5 MG HALFTAB PO (20:08)
[2024-05-26] MEDS: Enoxaparin Sodium 60 MG/0.6 ML SYRINGE SUBCUT ×2 (01:23→14:41)
[2024-05-26 03:21] VITALS: BP 134/76; PULSE 68; RESP 20; TEMP 36.3; O2SAT 93
[2024-05-26] MEDS: Piperacillin Sodium/Tazobactam 4.5 GM in 0.9 % Sodium Chloride 100 ML IV ×4 (05:37→23:19)
[2024-05-26 06:12] LABS: Hematocrit 31.6 % (37.0-47.0); Hemoglobin 10.8 g/dl (12.0-16.0); Mean Corpuscular HGB Conc 34.2 g/dl (31.0-35.0); Mean Corpuscular Hemoglobin 28.6 pg (27.0-33.0); Mean Corpuscular Volume 83.6 fL (80.0-98.0); Mean Platelet Volume 9.4 fL (9.4-12.3); Platelet Count 315 X10*3/uL (160-400); Red Blood Count 3.78 X10*6/uL (4.20-5.50); Red Cell Distribution Width 13.3 % (11.0-16.0); White Blood Count 6.2 X10*3/uL (4.8-10.8)
[2024-05-26 06:45] LABS: Anion Gap 14 (12-20); Blood Urea Nitrogen 6 mg/dL (9-16); Calcium 9.2 mg/dL (8.4-10.2); Carbon Dioxide 26 mmol/L (22-29); Chloride 104 mmol/L (96-108); Creatinine Clr Calc Pharmacy 84.7; Estimated Glomerular Filt Rate > 60; Glucose Fasting 85 mg/dL (60-99); Magnesium 1.7 mg/dL (1.6-2.6); Potassium 3.9 mmol/L (3.3-5.1); Sodium 140 mmol/L (135-145)
[2024-05-26 07:49] VITALS: BP 130/78; PULSE 72; RESP 20; TEMP 36.6; O2SAT 95
--- NOTE | 2024-05-26 09:21 | HO.PM.IMPN ---
Subjective Subjective Date of Service: 05/26/24 Interval History: improving, still with left chest wall pain Physical Exam Vital Signs: Vital Signs: Last Vital Signs Temp 97.9 F 05/26/24 07:49 Pulse 72 05/26/24 07:49 Resp 20 05/26/24 07:49 BP 130/78 05/26/24 07:49 Pulse Ox 95 05/26/24 07:49 O2 Del Method Nasal Cannula 05/26/24 07:49 O2 Flow Rate 2 05/26/24 07:49 BMI result Body Mass Index 24.0 Const: General: no acute distress and alert Nutritional Appearance: not obese Orientation/consciousness: Other orientation findings ( oriented) HEENT: Head: Yes atraumatic Eyes: General: appearance normal, both eyes and all related structures Sclerae: sclerae normal EOM: EOMs intact bilaterally Neck: Neck: Yes supple Lymphatic: no lymphadenopathy noted Resp: Effort & Inspection: normal respiratory effort and no use of accessory muscles Auscultation: clear to auscultation bilaterally Cardio: Rate: regular rate Rhythm: regular rhythm Heart sounds: no gallops, no murmurs and no rubs Skin: General skin exam: other ( warm) Extrem: General: No clubbing, No cyanosis and No edema Objective Data Active Medications Acetaminophen (Acetaminophen 325 Mg Tablet) 650 mg PO Q6H PRN PRN Reason: Pain, Mild (Pain Scale 1-3), fever or headache Last Admin: 05/25/24 20:08 Dose: 650 mg Documented By: ISMAEL Aspirin (Aspirin Enteric Coated 81 Mg Tablet.Dr) 81 mg PO DAILY [facility] Last Admin: 05/25/24 08:10 Dose: 81 mg Documented By: JAZZY Atorvastatin Calcium (Atorvastatin Calcium 40 Mg Tablet) 40 mg PO BEDTIME [facility] Last Admin: 05/25/24 20:07 Dose: 40 mg Documented By: ISMAEL Benzonatate (Benzonatate 100 Mg Capsule) 200 mg PO TID [facility] Last Admin: 05/25/24 20:07 Dose: 200 mg Documented By: ISMAEL Bupropion HCl (Bupropion Hcl Xl 300 Mg Tab.Er.24h) 300 mg PO DAILY [facility] Last Admin: 05/25/24 08:10 Dose: 300 mg Documented By: JAZZY Calcium Carbonate (Calcium Carbonate 750 Mg Tab.Chew) 750 mg PO Q4H PRN PRN Reason: Heartburn Enoxaparin Sodium (Enoxaparin Sodium 60 Mg/0.6 Ml Syringe) 60 mg SUBCUT Q12H [facility] Last Admin: 05/26/24 01:23 Dose: 60 mg Documented By: ISMAEL Fluoxetine HCl (Fluoxetine Hcl 20 Mg Capsule) 40 mg PO DAILY [facility] Last Admin: 05/25/24 08:10 Dose: 40 mg Documented By: JAZZY Guaifenesin (Guaifenesin La 600 Mg Tab.Er.12h) 600 mg PO BID [facility] Last Admin: 05/25/24 20:07 Dose: 600 mg Documented By: ISMAEL Hydromorphone HCl (Hydromorphone Hcl 0.5 Mg/0.5 Ml Syringe) 0.25 mg IVPUSH Q4H PRN; Protocol PRN Reason: Pain, Severe (Pain Scale 7-10) Last Admin: 05/24/24 23:09 Dose: 0.25 mg Documented By: ISMAEL Azithromycin 500 mg/ Sodium (Chloride) 250 mls @ 125 mls/hr IV Q24H [facility] Last Infusion: 05/25/24 16:54 Dose: Infused Documented By: JAZZY Piperacillin Sod/Tazobactam (Sod 4.5 gm/ Sodium Chloride) 100 mls @ 200 mls/hr IV Q6H [facility] Last Infusion: 05/26/24 06:07 Dose: Infused Documented By: ISMAEL Magnesium Hydroxide (Milk Of Magnesia 30 Ml Oral.Susp) 30 ml PO DAILY PRN PRN Reason: Constipation Magnesium Oxide (Magnesium Oxide 400 Mg Tablet) 800 mg PO BIDPC [facility] Last Admin: 05/25/24 16:50 Dose: 800 mg Documented By: JAZZY Melatonin (Melatonin 3 Mg Tablet) 6 mg PO BEDTIME PRN PRN Reason: Insomnia Last Admin: 05/24/24 21:48 Dose: 6 mg Documented By: ISMAEL Metoprolol Tartrate (Metoprolol Tartrate 12.5 Mg Halftab) 12.5 mg PO BID [facility]; Protocol Last Admin: 05/25/24 20:08 Dose: 12.5 mg Documented By: HO.N-OWUSD Ondansetron HCl (Ondansetron Hcl 4 Mg/2 Ml Vial) 4 mg IVPUSH Q8H PRN PRN Reason: Nausea and Vomiting Pharmacy Consult (Consult Rx Etoh Phenob Im/Po) 1 each MISCELLANE ONCE PRN; Protocol PRN Reason: Consult order Sodium Chloride (0.9 % Sodium Chloride Flush 3 Ml Syringe) 3 ml IVFLUSH QSHIFT [facility] Last Admin: 05/25/24 20:08 Dose: 3 ml Documented By: ISMAEL Labs 05/26/24 05:57 05/26/24 05:57 Labs: Laboratory Results - last 24 hr 05/26/24 05:57 MCV 83.6 MCH 28.6 MCHC 34.2 RDW 13.3 Plt Count 315 MPV 9.4 Absolute Nucleated RBC 0.000 Nucleated RBC % (auto) 0.0 Anion Gap 14 Estim Creat Clear Calc 84.7 Estimated GFR > 60 Fasting Glucose 85 Calcium 9.2 D Magnesium 1.7 Assessment and Plan (1) New onset of congestive heart failure: Status: Acute (2) Septic shock: Status: Acute (3) Sepsis: Status: Acute (4) Pulmonary embolism: Status: Acute (5) Multifocal pneumonia: Status: Acute (6) Acute hypokalemia: Status: Acute Plan 54F PMH of anxiety, depression and alcohol dependence presented to the hospital complaining of SOB, cough and fever for 2-3 weeks [employer]. Acute hypoxic respiratory failure and Septic shock 2/2 Pneumonia Shock resolved , received multiple IVF boluses and Albumen, pressors off 05/23 blood cultures - negative continue Azithromycin and zosyn Wean O2 as tolerated Acute nonocclusive segmental left lower lobe Pulmonary embolism Lovenox full dose for now, pulm appreciated - eventual transition to po DOAC for atleast 6 months, follow up with hematology for hypercoaguable work up NSTEMI Likely demand ischemia from sepsis in the setting of undiagnosed underlying coronary disease Continue Lovenox therapeutic, aspirin, statin, beta-cara Echo with basal inferior akinesis Will need ischemic workup at some point to be decided Acute hypokalemia And acute hypomagnesemia Replaced Alcohol dependence Monitor CIWA, no withdrawal at this time Depression Continue fluoxetine DVT PPx Lovenox full code reason for continued hospitalization:hypoxia Quality Stroke Does the patient have a stroke diagnosis?: No VTE Prior VTE?: No VTE Risk Level:: Medical - moderate - high VTE Device Contraindication: Treatment Not Indicated VTE Drug Contraindication: N/A - Med Ordered
[2024-05-26] MEDS: Benzonatate 100 MG CAPSULE 200 MG PO ×3 (09:41→21:20)
[2024-05-26] MEDS: Aspirin Enteric Coated 81 MG TABLET.DR PO (09:41)
[2024-05-26] MEDS: FLUoxetine HCl 20 MG CAPSULE 40 MG PO (09:41)
[2024-05-26] MEDS: Magnesium Oxide 400 MG TABLET 800 MG PO ×2 (09:41→18:23)
[2024-05-26] MEDS: Metoprolol Tartrate 12.5 MG HALFTAB PO ×2 (09:41→21:20)
[2024-05-26] MEDS: buPROPion HCl XL 300 MG TAB.ER.24H PO (09:42)
[2024-05-26] MEDS: 0.9 % Sodium Chloride Flush 3 ML SYRINGE IVFLUSH ×3 (09:42→21:20)
[2024-05-26] MEDS: guaiFENesin LA 600 MG TAB.ER.12H PO ×2 (09:57→21:20)
[2024-05-26] MEDS: Acetaminophen 325 MG TABLET 650 MG PO ×2 (10:56→18:23)
[2024-05-26 11:24] VITALS: BP 126/71; PULSE 66; RESP 20; TEMP 36.5; O2SAT 95
--- NOTE | 2024-05-26 12:37 | MHC.CM.PN ---
EMR REVIEWED, PER MD NOTES PT WILL REMAIN INPT D/T HYPOXIA, CM MET W/PT PER REQUEST D/T PT WANTING CM TO PRINT OUT FMLA PAPERWORK FOR HER, PT PROVIDED W/CM CARD W/[employer] EMAIL AND PT WILL FORWARD [employer]ASS FMLA PAPERWORK TO CM TO PRINT OUT. ANTIC PT WILL DC HOME SELF CARE ONCE MEDICALLY CLEARED, CM WILL CONT TO FOLLOW DC NEEDS.
[2024-05-26 15:23] VITALS: BP 110/75; PULSE 77; RESP 18; TEMP 36.2; O2SAT 96
[2024-05-26 19:29] VITALS: BP 133/80; PULSE 74; RESP 18; TEMP 36.8; O2SAT 94
[2024-05-26] MEDS: Atorvastatin Calcium 40 MG TABLET PO (21:20)
[2024-05-26] MEDS: HYDROmorphone HCl 0.5 MG/0.5 ML SYRINGE 0.25 MG IVPUSH (21:35)
[2024-05-26 23:23] VITALS: BP 127/74; PULSE 69; RESP 18; TEMP 36.6; O2SAT 92
[2024-05-26] MEDS: Melatonin 3 MG TABLET 6 MG PO (23:23)
[2024-05-27] MEDS: Enoxaparin Sodium 60 MG/0.6 ML SYRINGE SUBCUT ×2 (02:15→14:43)
[2024-05-27 04:00] VITALS: BP 128/79; PULSE 72; RESP 18; TEMP 36.7
[2024-05-27] MEDS: Piperacillin Sodium/Tazobactam 4.5 GM in 0.9 % Sodium Chloride 100 ML IV ×4 (05:15→21:44)
[2024-05-27 08:00] VITALS: BP 118/76; PULSE 76; RESP 18; TEMP 37.5; O2SAT 94
[2024-05-27] MEDS: buPROPion HCl XL 300 MG TAB.ER.24H PO (08:17)
[2024-05-27] MEDS: Metoprolol Tartrate 12.5 MG HALFTAB PO ×2 (08:17→21:06)
[2024-05-27] MEDS: guaiFENesin LA 600 MG TAB.ER.12H PO ×2 (08:17→21:07)
[2024-05-27] MEDS: FLUoxetine HCl 20 MG CAPSULE 40 MG PO (08:18)
[2024-05-27] MEDS: Benzonatate 100 MG CAPSULE 200 MG PO ×3 (08:18→21:06)
[2024-05-27] MEDS: Magnesium Oxide 400 MG TABLET 800 MG PO ×2 (08:18→17:24)
[2024-05-27] MEDS: Aspirin Enteric Coated 81 MG TABLET.DR PO (08:18)
[2024-05-27] MEDS: 0.9 % Sodium Chloride Flush 3 ML SYRINGE IVFLUSH ×3 (08:20→21:07)
--- NOTE | 2024-05-27 09:35 | P.PNIM_ITS ---
Subjective Subjective Date of Service: 05/27/24 Interval History: improving, still with left chest wall pain Physical Exam 2 Vital Signs: Vital Signs: Last Vital Signs Temp 99.5 F 05/27/24 08:00 Pulse 76 05/27/24 08:00 Resp 18 05/27/24 08:00 BP 118/76 05/27/24 08:00 Pulse Ox 94 05/27/24 08:00 O2 Del Method Room Air 05/27/24 08:00 O2 Flow Rate 2 05/26/24 07:49 BMI result Body Mass Index 24.0 Const: General: no acute distress and alert Nutritional Appearance: not obese Orientation/consciousness: Other orientation findings ( oriented) HEENT: Head: Yes atraumatic Eyes: General: appearance normal, both eyes and all related structures S clerae: sclerae normal EOM: EOMs intact bilaterally Neck: Neck: Yes supple Lymphatic: no lymphadenopathy noted Resp: Effort & Inspection: normal respiratory effort and no use of accessory muscles Auscultation: clear to auscultation bilaterally Cardio: Rate: regular rate Rhythm: regular rhythm Heart sounds: no gallops, no murmurs and no rubs Skin: General skin exam: other ( warm) Extrem: General: No clubbing, No cyanosis and No edema Objective Data Active Medications Acetaminophen (Acetaminophen 325 Mg Tablet) 650 mg PO Q6H PRN PRN Reason: Pain, Mild (Pain Scale 1-3), fever or headache Last Admin: 05/26/24 18:23 Dose: 650 mg Documented By: RAHUL Aspirin (Aspirin Enteric Coated 81 Mg Tablet.Dr) 81 mg PO DAILY [facility] Last Admin: 05/27/24 08:18 Dose: 81 mg Documented By: TERRI Atorvastatin Calcium (Atorvastatin Calcium 40 Mg Tablet) 40 mg PO BEDTIME [facility] Last Admin: 05/26/24 21:20 Dose: 40 mg Documented By: JEAN Benzonatate (Benzonatate 100 Mg Capsule) 200 mg PO TID [facility] Last Admin: 05/27/24 08:18 Dose: 200 mg Documented By: TERRI Bupropion HCl (Bupropion Hcl Xl 300 Mg Tab.Er.24h) 300 mg PO DAILY [facility] Last Admin: 05/27/24 08:17 Dose: 300 mg Documented By: TERRI Calcium Carbonate (Calcium Carbonate 750 Mg Tab.Chew) 750 mg PO Q4H PRN PRN Reason: Heartburn Enoxaparin Sodium (Enoxaparin Sodium 60 Mg/0.6 Ml Syringe) 60 mg SUBCUT Q12H [facility] Last Admin: 05/27/24 02:15 Dose: 60 mg Documented By: JEAN Fluoxetine HCl (Fluoxetine Hcl 20 Mg Capsule) 40 mg PO DAILY [facility] Last Admin: 05/27/24 08:18 Dose: 40 mg Documented By: TERRI Guaifenesin (Guaifenesin La 600 Mg Tab.Er.12h) 600 mg PO BID [facility] Last Admin: 05/27/24 08:17 Dose: 600 mg Documented By: TERRI Hydromorphone HCl (Hydromorphone Hcl 0.5 Mg/0.5 Ml Syringe) 0.25 mg IVPUSH Q4H PRN; Protocol PRN Reason: Pain, Severe (Pain Scale 7-10) Last Admin: 05/26/24 21:35 Dose: 0.25 mg Documented By: JEAN Azithromycin 500 mg/ Sodium (Chloride) 250 mls @ 125 mls/hr IV Q24H [facility] Last Admin: 05/26/24 18:30 Dose: Not Given Documented By: RAHUL Non-Admin Reason: scanned under 05/25/24 order,was given Piperacillin Sod/Tazobactam (Sod 4.5 gm/ Sodium Chloride) 100 mls @ 200 mls/hr IV Q6H [facility] Last Infusion: 05/27/24 06:15 Dose: Infused Documented By: JEAN Magnesium Hydroxide (Milk Of Magnesia 30 Ml Oral.Susp) 30 ml PO DAILY PRN PRN Reason: Constipation Magnesium Oxide (Magnesium Oxide 400 Mg Tablet) [facility] Last Admin: 05/27/24 08:18 Dose: 800 mg Documented By: TERRI Melatonin (Melatonin 3 Mg Tablet) 6 mg PO BEDTIME PRN PRN Reason: Insomnia Last Admin: 05/26/24 23:23 Dose: 6 mg Documented By: JEAN Metoprolol Tartrate (Metoprolol Tartrate 12.5 Mg Halftab) 12.5 mg PO BID [facility]; Protocol Last Admin: 05/27/24 08:17 Dose: 12.5 mg Documented By: TERRI Ondansetron HCl (Ondansetron Hcl 4 Mg/2 Ml Vial) 4 mg IVPUSH Q8H PRN PRN Reason: Nausea and Vomiting Pharmacy Consult (Consult Rx Etoh Phenob Im/Po) 1 each MISCELLANE ONCE PRN; Protocol PRN Reason: Consult order Sodium Chloride (0.9 % Sodium Chloride Flush 3 Ml Syringe) [facility] Last Admin: 05/27/24 08:20 Dose: 3 ml Documented By: TERRI Labs 05/26/24 05:57 05/26/24 05:57 Assessment and Plan (1) New onset of congestive heart failure: Status: Acute (2) Septic shock: Status: Acute (3) Sepsis: Status: Acute (4) Pulmonary embolism: Status: Acute (5) Multifocal pneumonia: Status: Acute (6) Acute hypokalemia: Status: Acute Plan 54F PMH of anxiety, depression and alcohol dependence presented to the hospital complaining of SOB, cough and fever for 2-3 weeks [employer]. Acute hypoxic respiratory failure and Septic shock 2/2 Pneumonia Shock resolved , received multiple IVF boluses and Albumen, pressors off 05/23 blood cultures - negative continue Azithromycin and zosyn now on room air Acute nonocclusive segmental left lower lobe Pulmonary embolism Lovenox full dose for now, pulm appreciated - eventual transition to po DOAC for atleast 6 months, follow up with hematology for hypercoaguable work up NSTEMI Likely demand ischemia from sepsis in the setting of undiagnosed underlying coronary disease Continue Lovenox therapeutic (on for pe anyway), aspirin, statin, beta-cara Echo with basal inferior akinesis plan for ischemic workup prior to discharge (early next week) Acute hypokalemia And acute hypomagnesemia Replaced Alcohol dependence Monitor CIWA, no withdrawal at this time Depression Continue fluoxetine DVT PPx Lovenox full code reason for continued hospitalization:monitoring for defervesence, still with low grade temps Quality Stroke Does the patient have a stroke diagnosis?: No VTE Prior VTE?: No VTE Risk Level:: Medical - moderate - high VTE Device Contraindication: Treatment Not Indicated VTE Drug Contraindication: N/A - Med Ordered
[2024-05-27 11:23] VITALS: BP 118/78; PULSE 68; RESP 20; TEMP 36.2; O2SAT 94
[2024-05-27] MEDS: Azithromycin 500 MG in 0.9 % Sodium Chloride 250 ML 125 MG IV (14:43)
[2024-05-27 15:28] VITALS: BP 107/69; PULSE 84; RESP 18; TEMP 36.3; O2SAT 96
[2024-05-27] MEDS: Atorvastatin Calcium 40 MG TABLET PO (21:06)
[2024-05-27] MEDS: Acetaminophen 325 MG TABLET 650 MG PO (21:06)
[2024-05-27] MEDS: Melatonin 3 MG TABLET 6 MG PO (21:07)
[2024-05-27] MEDS: diphenhydrAMINE HCL 25 MG CAPSULE PO (21:45)
[2024-05-27 23:51] VITALS: BP 117/77; PULSE 63; RESP 20; TEMP 36.2; O2SAT 94
[2024-05-28] VITALS (7 sets, daily range): BP systolic 92–115; BP diastolic 63–74; PULSE 68–77; RESP 16–20; TEMP 36–36.9; O2SAT 93–97
[2024-05-28] MEDS: Enoxaparin Sodium 60 MG/0.6 ML SYRINGE SUBCUT ×2 (02:42→14:57)
[2024-05-28] MEDS: Piperacillin Sodium/Tazobactam 4.5 GM in 0.9 % Sodium Chloride 100 ML IV (05:00)
[2024-05-28 07:16] LABS: Hematocrit 38.4 % (37.0-47.0); Hemoglobin 12.8 g/dl (12.0-16.0); Mean Corpuscular HGB Conc 33.3 g/dl (31.0-35.0); Mean Corpuscular Hemoglobin 28.2 pg (27.0-33.0); Mean Corpuscular Volume 84.6 fL (80.0-98.0); Mean Platelet Volume 9.6 fL (9.4-12.3); Platelet Count 420 X10*3/uL (160-400); Red Blood Count 4.54 X10*6/uL (4.20-5.50); Red Cell Distribution Width 13.4 % (11.0-16.0); White Blood Count 7.9 X10*3/uL (4.8-10.8)
[2024-05-28 08:10] LABS: Anion Gap 14 (12-20); Blood Urea Nitrogen 12 mg/dL (9-16); Calcium 9.8 mg/dL (8.4-10.2); Carbon Dioxide 27 mmol/L (22-29); Chloride 103 mmol/L (96-108); Creatinine Clr Calc Pharmacy 70.1; Estimated Glomerular Filt Rate > 60; Glucose Fasting 78 mg/dL (60-99); Magnesium 2.2 mg/dL (1.6-2.6); Potassium 4.3 mmol/L (3.3-5.1); Sodium 140 mmol/L (135-145)
[2024-05-28] MEDS: FLUoxetine HCl 20 MG CAPSULE 40 MG PO (08:48)
[2024-05-28] MEDS: Metoprolol Tartrate 12.5 MG HALFTAB PO ×2 (08:48→22:18)
[2024-05-28] MEDS: buPROPion HCl XL 300 MG TAB.ER.24H PO (08:48)
[2024-05-28] MEDS: Aspirin Enteric Coated 81 MG TABLET.DR PO (08:48)
[2024-05-28] MEDS: guaiFENesin LA 600 MG TAB.ER.12H PO ×2 (08:48→22:17)
[2024-05-28] MEDS: Magnesium Oxide 400 MG TABLET 800 MG PO ×2 (08:48→17:25)
[2024-05-28] MEDS: Benzonatate 100 MG CAPSULE 200 MG PO ×3 (08:49→22:17)
[2024-05-28] MEDS: 0.9 % Sodium Chloride Flush 3 ML SYRINGE IVFLUSH ×2 (08:50→15:00)
--- NOTE | 2024-05-28 10:26 | P.PNIM_ITS ---
Subjective Subjective Date of Service: 05/28/24 Interval History: continues to improve Physical Exam 2 Vital Signs: Vital Signs: Last Vital Signs Temp 98.1 F 05/28/24 07:03 Pulse 75 05/28/24 07:03 Resp 18 05/28/24 07:03 BP 104/71 05/28/24 07:03 Pulse Ox 96 05/28/24 07:03 O2 Del Method Room Air 05/28/24 07:03 O2 Flow Rate 2 05/26/24 07:49 BMI result Body Mass Index 24.0 Const: General: no acute distress and alert Nutritional Appearance: not obese Orientation/consciousness: Other orientation findings ( oriented) HEENT: Head: Yes atraumatic Eyes: General: appearance normal, both eyes and all related structures S clerae: sclerae normal EOM: EOMs intact bilaterally Neck: Neck: Yes supple Lymphatic: no lymphadenopathy noted Resp: Effort & Inspection: normal respiratory effort and no use of accessory muscles Auscultation: clear to auscultation bilaterally Cardio: Rate: regular rate Rhythm: regular rhythm Heart sounds: no gallops, no murmurs and no rubs Skin: General skin exam: other ( warm) Extrem: General: No clubbing, No cyanosis and No edema Objective Data Active Medications Acetaminophen (Acetaminophen 325 Mg Tablet) 650 mg PO Q6H PRN PRN Reason: Pain, Mild (Pain Scale 1-3), fever or headache Last Admin: 05/27/24 21:06 Dose: 650 mg Documented By: JAZZ Aspirin (Aspirin Enteric Coated 81 Mg Tablet.) 81 mg PO DAILY [facility] Last Admin: 05/28/24 08:48 Dose: 81 mg Documented By: AMY Atorvastatin Calcium (Atorvastatin Calcium 40 Mg Tablet) 40 mg PO BEDTIME [facility] Last Admin: 05/27/24 21:06 Dose: 40 mg Documented By: JAZZ Benzonatate (Benzonatate 100 Mg Capsule) 200 mg PO TID [facility] Last Admin: 05/28/24 08:49 Dose: 200 mg Documented By: AMY Bupropion HCl (Bupropion Hcl Xl 300 Mg Tab.Er.24h) 300 mg PO DAILY [facility] Last Admin: 05/28/24 08:48 Dose: 300 mg Documented By: AMY Calcium Carbonate (Calcium Carbonate 750 Mg Tab.Chew) 750 mg PO Q4H PRN PRN Reason: Heartburn Enoxaparin Sodium (Enoxaparin Sodium 60 Mg/0.6 Ml Syringe) 60 mg SUBCUT Q12H [facility] Last Admin: 05/28/24 02:42 Dose: 60 mg Documented By: JAZZ Fluoxetine HCl (Fluoxetine Hcl 20 Mg Capsule) 40 mg PO DAILY [facility] Last Admin: 05/28/24 08:48 Dose: 40 mg Documented By: AMY Guaifenesin (Guaifenesin La 600 Mg Tab.Er.12h) 600 mg PO BID [facility] Last Admin: 05/28/24 08:48 Dose: 600 mg Documented By: AMY Hydromorphone HCl (Hydromorphone Hcl 0.5 Mg/0.5 Ml Syringe) 0.25 mg IVPUSH Q4H PRN; Protocol PRN Reason: Pain, Severe (Pain Scale 7-10) Last Admin: 05/26/24 21:35 Dose: 0.25 mg Documented By: JEAN Azithromycin 500 mg/ Sodium (Chloride) 250 mls @ 125 mls/hr IV Q24H [facility] Last Infusion: 05/27/24 17:01 Dose: Infused Documented By: TERRI Piperacillin Sod/Tazobactam (Sod 4.5 gm/ Sodium Chloride) 100 mls @ 200 mls/hr IV Q6H [facility] Last Infusion: 05/28/24 05:36 Dose: Infused Documented By: JAZZ Magnesium Hydroxide (Milk Of Magnesia 30 Ml Oral.Susp) 30 ml PO DAILY PRN PRN Reason: Constipation Magnesium Oxide (Magnesium Oxide 400 Mg Tablet) [facility] Last Admin: 05/28/24 08:48 Dose: 800 mg Documented By: AMY Melatonin (Melatonin 3 Mg Tablet) 6 mg PO BEDTIME PRN PRN Reason: Insomnia Last Admin: 05/27/24 21:07 Dose: 6 mg Documented By: JAZZ Metoprolol Tartrate (Metoprolol Tartrate 12.5 Mg Halftab) 12.5 mg PO BID [facility]; Protocol Last Admin: 05/28/24 08:48 Dose: 12.5 mg Documented By: AMY Ondansetron HCl (Ondansetron Hcl 4 Mg/2 Ml Vial) 4 mg IVPUSH Q8H PRN PRN Reason: Nausea and Vomiting Pharmacy Consult (Consult Rx Etoh Phenob Im/Po) 1 each MISCELLANE ONCE PRN; Protocol PRN Reason: Consult order Sodium Chloride (0.9 % Sodium Chloride Flush 3 Ml Syringe) 3 ml IVFLUSH QSHIFT [facility] Last Admin: 05/28/24 08:50 Dose: 3 ml Documented By: AMY Labs 05/28/24 06:14 05/28/24 06:14 Labs: Laboratory Results - last 24 hr 05/28/24 06:14 MCV 84.6 MCH 28.2 MCHC 33.3 RDW 13.4 Plt Count 420 H D MPV 9.6 Absolute Nucleated RBC 0.000 Nucleated RBC % (auto) 0.0 Anion Gap 14 Estim Creat Clear Calc 70.1 Estimated GFR > 60 Fasting Glucose 78 Calcium 9.8 D Magnesium 2.2 Microbiology Microbiology Results: Microbiology 05/22/24 20:06 Blood Culture - Final Blood - Venous No growth after 5 days. 05/22/24 20:10 Blood Culture - Final Blood - Venous No growth after 5 days. 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 Acute hypoxic respiratory failure and Septic shock 2/2 Pneumonia Shock resolved , received multiple IVF boluses and Albumen, pressors off 05/23 blood cultures - negative much improved will transition to ceftin and azithro po until 06/03/24 now on room air Acute nonocclusive segmental left lower lobe Pulmonary embolism Lovenox full dose for now, pulm appreciated - eventual transition to po DOAC for atleast 6 months, follow up with hematology for hypercoaguable work up NSTEMI Likely demand ischemia from sepsis in the setting of undiagnosed underlying coronary disease Continue Lovenox therapeutic (on for pe anyway), aspirin, statin, beta-cara Echo with basal inferior akinesis plan for ischemic workup prior to discharge (early next week) Acute hypokalemia And acute hypomagnesemia Replaced Alcohol dependence Monitor CIWA, no withdrawal at this time Depression Continue fluoxetine DVT PPx Lovenox full code reason for continued hospitalization:plan for cath prior to discharge Quality Stroke Does the patient have a stroke diagnosis?: No VTE Prior VTE?: No VTE Risk Level:: Medical - moderate - high VTE Device Contraindication: Treatment Not Indicated VTE Drug Contraindication: N/A - Med Ordered
--- NOTE | 2024-05-28 10:52 | PM.PNCARD ---
Subjective Subjective Date of Service: 05/28/24 Interval history: She states that she feels much better. Review of Systems Review of Systems Yes all other systems are reviewed and are negative Constitutional: Reports as per HPI and Reports no additional constitutional complaints Eyes: Reports as per HPI and Denies no additional eye complaints Denies system reviewed and no additional complaints, except as documented and Reports as per HPI Cardiovascular: Reports as per HPI, Reports no additional cardiovascular complaints, Denies acrocyanosis, Denies cool extremities, Denies chest pain, Denies leg edema, Denies lightheadedness, Denies palpitations and Denies dyspnea Respiratory: Reports as per HPI, Denies no additional respiratory complaints and Denies dyspnea Gastrointestinal: Reports as per HPI and Denies no additional gastrointestinal complaints Genitourinary: Reports as per HPI Musculoskeletal: Reports no additional musculoskeletal complaints and Reports as per HPI Skin/Breast: Reports system reviewed and no additional complaints, except as docu Reports system reviewed and no additional complaints, except as documented and Reports as per HPI Psychiatric: Reports no additional psychiatric complaints and Reports as per HPI Endocrine: Reports no additional endocrine complaints, Reports as per HPI and Denies palpitations Hematologic/Lymphatic: Reports no additional hematologic/lymphatic complaints and Reports as per HPI Allergic/Immunologic: Reports no additional allergic/immunologic complaints and Reports as per HPI Physical Exam Vital Signs: Last Vital Signs Temp 98.1 F 05/28/24 07:03 Pulse 75 05/28/24 07:03 Resp 18 05/28/24 07:03 BP 104/71 05/28/24 07:03 Pulse Ox 96 05/28/24 07:03 O2 Del Method Room Air 05/28/24 07:03 O2 Flow Rate 2 05/26/24 07:49 BMI result Body Mass Index 24.0 Const General: comfortable and no acute distress Orientation/consciousness: patient oriented x3 HEENT Other: Unremarkable Head: Yes normal to inspection Neck Neck: Yes normal visual inspection Chest Chest palpation & inspection: normal inspection of the chest Resp Auscultation: clear to auscultation bilaterally Cardio Palpation: normal PMI Heart sounds: S1 normal heart sound present, S2 normal heart sound present, no gallops, no murmurs and no rubs GI Palpation (GI): Soft to palpation Back/Spine/Pelvis Other: unremarkable Skin General skin exam: no rashes or lesions noted Neuro General: patient oriented x3 Extrem General: Yes normal to inspection Psych Mental Status: mental status grossly normal Objective Labs and Meds 05/28/24 06:14 05/28/24 06:14 Lab results: Laboratory Results - last 24 hr 05/28/24 06:14 WBC 7.9 RBC 4.54 D Hgb 12.8 Hct 38.4 D MCV 84.6 MCH 28.2 MCHC 33.3 RDW 13.4 Plt Count 420 H D MPV 9.6 Absolute Nucleated RBC 0.000 Nucleated RBC % (auto) 0.0 Sodium 140 Potassium 4.3 Chloride 103 Carbon Dioxide 27 Anion Gap 14 BUN 12 Creatinine 0.81 Estim Creat Clear Calc 70.1 Estimated GFR > 60 Fasting Glucose 78 Calcium 9.8 D Magnesium 2.2 Progress Note: A&P Assessment and plan (1) NSTEMI (non-ST elevated myocardial infarction): Status: Acute Plan Troponin levels reviewed. They started 8.9, peaked at 5458 and then started coming down to 1686. In the echocardiogram, LVEF is low normal at 53%. Basal inferior akinesis. Chest CTA with lingular/left lower lobe pneumonia as well as acute pulmonary embolus in the left lower lobe segmental branch. Troponin elevation could be related to demand related NSTEMI in setting of acute medical issues, including hypotension. For medications, she is on subcutaneous Lovenox, aspirin, low-dose beta-blockers and statins. Also on antibiotics. We discussed about further workup regarding NSTEMI. After discussing several options, she felt most comfortable with getting this done as an inpatient and hence we will transfer her over the weekend for cardiac catheterization on Friday. She agrees with that plan. Discussed with hospitalist. Time Spent With Patient Time: Total time managing care of this patient today ____ minutes. Progress Note: Quality Stroke Does the patient have a stroke diagnosis?: No Procedures Date of Service Date of Service: 05/28/24
[2024-05-28] MEDS: cefuroxime axetiL 500 MG TABLET PO ×2 (11:34→22:18)
[2024-05-28] MEDS: Azithromycin 500 MG TABLET PO (11:34)
--- NOTE | 2024-05-28 15:40 | HE.CSO ---
EMR REVIEWED, PER HOSPITALIST PLAN FOR PT TO REMAIN INPT THROUGH W/E AND TRANSFER TO [facility] [place] CATH ON THURSDAY 05/31, CM WILL CONT TO FOLLOW DC NEEDS.
[2024-05-28] MEDS: Atorvastatin Calcium 40 MG TABLET PO (22:17)
[2024-05-28] MEDS: Melatonin 3 MG TABLET 6 MG PO (22:17)
[2024-05-29 04:00] VITALS: BP 106/64; PULSE 68; RESP 16; TEMP 36.9; O2SAT 96
[2024-05-29] MEDS: Enoxaparin Sodium 60 MG/0.6 ML SYRINGE SUBCUT ×2 (04:28→14:45)
[2024-05-29 07:52] VITALS: BP 100/57; PULSE 73; RESP 16; TEMP 36.3; O2SAT 95
[2024-05-29] MEDS: FLUoxetine HCl 20 MG CAPSULE 40 MG PO (08:44)
[2024-05-29] MEDS: guaiFENesin LA 600 MG TAB.ER.12H PO ×2 (08:44→21:41)
[2024-05-29] MEDS: Metoprolol Tartrate 12.5 MG HALFTAB PO ×2 (08:44→21:41)
[2024-05-29] MEDS: Magnesium Oxide 400 MG TABLET 800 MG PO ×2 (08:44→16:38)
[2024-05-29] MEDS: buPROPion HCl XL 300 MG TAB.ER.24H PO (08:44)
[2024-05-29] MEDS: Benzonatate 100 MG CAPSULE 200 MG PO ×3 (08:44→21:41)
[2024-05-29] MEDS: Aspirin Enteric Coated 81 MG TABLET.DR PO (08:44)
[2024-05-29] MEDS: 0.9 % Sodium Chloride Flush 3 ML SYRINGE IVFLUSH ×4 (08:45→21:42)
--- NOTE | 2024-05-29 09:18 | P.PNIM_ITS ---
Subjective Subjective Date of Service: 05/29/24 Interval History: continues to improve Physical Exam 2 Vital Signs: Vital Signs: Last Vital Signs Temp 97.4 F 05/29/24 07:52 Pulse 73 05/29/24 07:52 Resp 16 05/29/24 07:52 BP 100/57 L 05/29/24 07:52 Pulse Ox 95 05/29/24 07:52 O2 Del Method Room Air 05/29/24 07:52 O2 Flow Rate 2 05/26/24 07:49 BMI result Body Mass Index 24.0 Const: General: comfortable and no acute distress O rientation/consciousness: patient oriented x3 HEENT: Other: Unremarkable Head: Yes normal to inspection Neck: Neck: Yes normal visual inspection Chest: Chest palpation & inspection: normal inspection of the chest Resp: Auscultation: clear to auscultation bilaterally Cardio: Palpation: normal PMI Heart sounds: S1 normal heart sound present, S2 normal heart sound present, no gallops, no murmurs and no rubs GI: Palpation (GI): Soft to palpation Back/Spine/Pelvis: Other: unremarkable Skin: General skin exam: no rashes or lesions noted Neuro: General: patient oriented x3 Extrem: General: Yes normal to inspection Psych: Mental Status: mental status grossly normal Objective Data Active Medications Acetaminophen (Acetaminophen 325 Mg Tablet) 650 mg PO Q6H PRN PRN Reason: Pain, Mild (Pain Scale 1-3), fever or headache Last Admin: 05/27/24 21:06 Dose: 650 mg Documented By: JAZZ Aspirin (Aspirin Enteric Coated 81 Mg Tablet.) 81 mg PO DAILY [facility] Last Admin: 05/29/24 08:44 Dose: 81 mg Documented By: AMY Atorvastatin Calcium (Atorvastatin Calcium 40 Mg Tablet) 40 mg PO BEDTIME [facility] Last Admin: 05/28/24 22:17 Dose: 40 mg Documented By: ROLANDO Azithromycin (Azithromycin 500 Mg Tablet) 500 mg PO Q24H [facility] Last Admin: 05/28/24 11:34 Dose: 500 mg Documented By: AMY Benzonatate (Benzonatate 100 Mg Capsule) 200 mg PO TID [facility] Last Admin: 05/29/24 08:44 Dose: 200 mg Documented By: AMY Bupropion HCl (Bupropion Hcl Xl 300 Mg Tab.Er.24h) 300 mg PO DAILY [facility] Last Admin: 05/29/24 08:44 Dose: 300 mg Documented By: AMY Calcium Carbonate (Calcium Carbonate 750 Mg Tab.Chew) 750 mg PO Q4H PRN PRN Reason: Heartburn Cefuroxime Axetil (Cefuroxime Axetil 500 Mg Tablet) 500 mg PO Q12H [facility] Last Admin: 05/28/24 22:18 Dose: 500 mg Documented By: ROLANDO Enoxaparin Sodium (Enoxaparin Sodium 60 Mg/0.6 Ml Syringe) 60 mg SUBCUT Q12H [facility] Last Admin: 05/29/24 04:28 Dose: 60 mg Documented By: ROLANDO Fluoxetine HCl (Fluoxetine Hcl 20 Mg Capsule) 40 mg PO DAILY [facility] Last Admin: 05/29/24 08:44 Dose: 40 mg Documented By: AMY Guaifenesin (Guaifenesin La 600 Mg Tab.Er.12h) 600 mg PO BID [facility] Last Admin: 05/29/24 08:44 Dose: 600 mg Documented By: AMY Hydromorphone HCl (Hydromorphone Hcl 0.5 Mg/0.5 Ml Syringe) 0.25 mg IVPUSH Q4H PRN; Protocol PRN Reason: Pain, Severe (Pain Scale 7-10) Last Admin: 05/26/24 21:35 Dose: 0.25 mg Documented By: JEAN Magnesium Hydroxide (Milk Of Magnesia 30 Ml Oral.Susp) 30 ml PO DAILY PRN PRN Reason: Constipation Magnesium Oxide ([facility]esium Oxide 400 Mg Tablet) [facility] Last Admin: 05/29/24 08:44 Dose: 800 mg Documented By: AMY Melatonin (Melatonin 3 Mg Tablet) 6 mg PO BEDTIME PRN PRN Reason: Insomnia Last Admin: 05/28/24 22:17 Dose: 6 mg Documented By: ROLANDO Metoprolol Tartrate (Metoprolol Tartrate 12.5 Mg Halftab) 12.5 mg PO BID [facility]; Protocol Last Admin: 05/29/24 08:44 Dose: 12.5 mg Documented By: AMY Ondansetron HCl (Ondansetron Hcl 4 Mg/2 Ml Vial) 4 mg IVPUSH Q8H PRN PRN Reason: Nausea and Vomiting Pharmacy Consult (Consult Rx Etoh Phenob Im/Po) 1 each MISCELLANE ONCE PRN; Protocol PRN Reason: Consult order Sodium Chloride (0.9 % Sodium Chloride Flush 3 Ml Syringe) 3 ml IVFLUSH [facility] Last Admin: 05/29/24 08:45 Dose: 3 ml Documented By: AMY Labs 05/28/24 06:14 05/28/24 06:14 Assessment and Plan (1) New onset of congestive heart failure: Status: Acute (2) Septic shock: Status: Acute (3) Sepsis: Status: Acute (4) Pulmonary embolism: Status: Acute (5) Multifocal pneumonia: Status: Acute (6) Acute hypokalemia: Status: Acute Plan 54F PMH of anxiety, depression and alcohol dependence presented to the hospital complaining of SOB, cough and fever for 2-3 weeks [employer]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 Acute hypoxic respiratory failure and Septic shock 2/2 Pneumonia Shock resolved , received multiple IVF boluses and Albumen, pressors off 05/23 blood cultures - negative changed to ceftin and azithro po until 06/03/24 now on room air Acute nonocclusive segmental left lower lobe Pulmonary embolism Lovenox full dose for now, pulm appreciated - eventual transition to po DOAC for atleast 6 months, follow up with hematology for hypercoaguable work up NSTEMI Likely demand ischemia from sepsis in the setting of undiagnosed underlying coronary disease Continue Lovenox therapeutic (on for pe anyway), aspirin, statin, beta-cara Echo with basal inferior akinesis plan for ischemic workup prior to discharge (early next week) Acute hypokalemia And acute hypomagnesemia Replaced Alcohol dependence Monitor CIWA, no withdrawal at this time Depression Continue fluoxetine DVT PPx Lovenox full code reason for continued hospitalization:plan for cath prior to discharge Quality Stroke Does the patient have a stroke diagnosis?: No VTE Prior VTE?: No VTE Risk Level:: Medical - moderate - high VTE Device Contraindication: Treatment Not Indicated VTE Drug Contraindication: N/A - Med Ordered
[2024-05-29] MEDS: cefuroxime axetiL 500 MG TABLET PO ×2 (11:22→21:41)
[2024-05-29] MEDS: Azithromycin 500 MG TABLET PO (11:22)
[2024-05-29 12:00] VITALS: BP 106/64; PULSE 64; RESP 16; TEMP 36.3; O2SAT 96
[2024-05-29 16:00] VITALS: BP 118/63; PULSE 80; RESP 18; TEMP 36.9; O2SAT 95
[2024-05-29 20:00] VITALS: BP 98/62; PULSE 72; RESP 18; TEMP 36.6; O2SAT 98
[2024-05-29] MEDS: Melatonin 3 MG TABLET 6 MG PO (21:41)
[2024-05-29] MEDS: Atorvastatin Calcium 40 MG TABLET PO (21:41)
[2024-05-29 22:49] VITALS: RESP 16
[2024-05-30] VITALS: BP 98/59; PULSE 66; RESP 16; TEMP 36.7; O2SAT 96
[2024-05-30] MEDS: Enoxaparin Sodium 60 MG/0.6 ML SYRINGE SUBCUT ×2 (03:41→13:27)
[2024-05-30 04:00] VITALS: BP 101/57; PULSE 66; RESP 20; TEMP 36.4; O2SAT 96
--- NOTE | 2024-05-30 07:13 | P.DS_ITS ---
DS: Providers Provider Date of Service: 05/30/24 Date of admission: 05/23/24 13:14 Date of discharge: 05/30/24 Primary care physician: Bert Cartagena CNP Consults: 05/23/24 17:00 Consult to Critical Care Stat Consulting Provider: Narendra Lenz Reason for consultation: hypotension 05/24/24 16:38 Consult to Cardiology Routine Consulting Provider: [facility] [place] [facility] Reason for consultation: NSTEMI for eval 05/25/24 07:55 Consult to Pulmonology Routine Consulting Provider: [facility] [place] [facility] Reason for consultation: ?need/duration of AC in reported non occlusive PE DS: Diagnosis Discharge Diagnosis (1) New onset of congestive heart failure: Status: Acute (2) Septic shock: Status: Acute (3) Sepsis: Status: Acute (4) Pulmonary embolism: Status: Acute (5) Multifocal pneumonia: Status: Acute (6) Acute hypokalemia: Status: Acute DS: Summary Hospital Course Hospital Course: from initial hpi: 54 years old lady with PMH of anxiety, depression and alcohol abuse presents to the hospital complaining of SOB, cough and fever for 2-3 weeks [employer]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 The patient reports feeling sick for the last 2 weeks at least. evaluated by her PCP and at [facility] who treated her as viral illness with supportive therapy. She has been feeling worse with increase pain in the left side of her chest associated with deep breath. She also reports fever, chills, dyspnea, joint pain and feeling unwell. No nausea, vomiting, diarrhea or urinary symptoms. denies family hx of clots, no recent travel or prolonged rest. She continues to drink alcohol. Tox screen positive for THC only. In ED CTA showed left sided PE with LLL infiltrates. patient was hypotensive requiring IV fluids and IV pressors with fair response. Admitted for further work up and management. hospital course: Patient was admitted for acute hypoxic respiratory failure and septic shock secondary to pneumonia. She received multiple IV fluid boluses and albumin and vasopressors, blood pressure improved was taken off vasopressors on 05/23/2024. Blood cultures were negative. Was treated with Zosyn and azithromycin and sepsis resolved, was transitioned to cefuroxime and azithromycin and will continue until 06/03/2024. Patient was weaned off oxygen and now comfortable on room air. Patient also noted to have acute nonocclusive segmental left lower lobe pulmonary embolism. She was treated with full-dose Lovenox and should transitioned to oral DOAC after cardiac catheterization. For NSTEMI differential includes demand ischemia from sepsis and underlying coronary disease, was treated with Lovenox, aspirin, statin, beta-cara. Echo showed EF of 55-65% with basal inferior akinesis, plan is to transfer to [facility] for cardiac catheterization. Course complicated by acute hypokalemia and hypomagnesemia which was replaced. Patient has a history of alcohol dependence but showed no signs of withdrawal during hospitalization. For depression was continued on fluoxetine. Time Attestation Discharge Coordination Time (in mins): 32 Quality: Safe Use of Opioids Does Pt have an Active Cancer Diagnosis on the Problem List?: No Quality: Stroke Does the patient have a stroke diagnosis?: No Physical Exam Vital Signs: Vital Signs: Last Vital Signs Temp 97.6 F 05/30/24 04:00 Pulse 66 05/30/24 04:00 Resp 20 05/30/24 04:00 BP 101/57 L 05/30/24 04:00 Pulse Ox 96 05/30/24 04:00 O2 Del Method Room Air 05/30/24 04:00 O2 Flow Rate 2 05/26/24 07:49 BMI result Body Mass Index 24.0 General: AO X 3, no acute distress Resp: CTA bilateral, no accessory muscles used CVS: S1,S2,RRR GI: soft, non tender, non distended Neuro: motor grossly intact, alert Psych: appropriate affect, appropriate insight Discharge Plan Discharge Anticipated Discharge Date/Time: 05/30/24 07:08 Patient Disposition: Xfer Acute Care Hospital Discharge Diagnosis: nstemi, chf, septic shock, pna Referrals: Riana Obregon MD [Physician] - 4 Months (unprovoked PE) Bert Cartagena CNP [Primary Care Provider] - 1 Week Discharge Medications: New atorvastatin 40 mg Tablet 40 mg PO BEDTIME Qty: 0 0RF cefuroxime axetil 500 mg Tablet 500 mg PO Q12H Qty: 0 0RF azithromycin 500 mg Tablet 500 mg PO Q24H Qty: 0 0RF metoprolol tartrate 25 mg tablet 12.5 mg PO BID Qty: 0 0RF aspirin 81 mg Tablet,Delayed Release (Dr/Ec) 81 mg PO DAILY Qty: 0 0RF Continued bupropion HCl [Wellbutrin XL] 300 mg tablet extended release 24 hr 300 mg PO DAILY fluoxetine [Prozac] 40 mg capsule 40 mg PO DAILY Qty: 30 3RF Diet: Advance to usual diet Activity on Discharge: As tolerated Stand Alone Forms: Patient Portal Discharge page Print Language: French Care Plan Goals: recovery Health Concerns: pna, ?CAD Plan of Treatment: continue course of ceftin and azithro for pna, (end 06/03/24) transfer to [facility] for cardiac cath Assessment: see above
[2024-05-30 08:00] VITALS: BP 98/61; PULSE 66; RESP 19; TEMP 36.7; O2SAT 92
[2024-05-30] MEDS: guaiFENesin LA 600 MG TAB.ER.12H PO (08:39)
[2024-05-30] MEDS: Aspirin Enteric Coated 81 MG TABLET.DR PO (08:39)
[2024-05-30] MEDS: Benzonatate 100 MG CAPSULE 200 MG PO (08:39)
[2024-05-30] MEDS: Magnesium Oxide 400 MG TABLET 800 MG PO (08:40)
[2024-05-30] MEDS: 0.9 % Sodium Chloride Flush 3 ML SYRINGE IVFLUSH (08:40)
[2024-05-30] MEDS: buPROPion HCl XL 300 MG TAB.ER.24H PO (08:40)
[2024-05-30] MEDS: Metoprolol Tartrate 12.5 MG HALFTAB PO (08:40)
[2024-05-30] MEDS: FLUoxetine HCl 20 MG CAPSULE 40 MG PO (08:40)
[2024-05-30 08:50] VITALS: BP 114/56
--- NOTE | 2024-05-30 09:35 | P.PNCA_ITS ---
Subjective Subjective Date of Service: 05/30/24 Interval history: Patient feels fine. No specific cardiac complaints. Review of Systems Review of Systems Yes all other systems are reviewed and are negative Constitutional: Reports as per HPI and Reports no additional constitutional complaints Eyes: Reports as per HPI and Denies no additional eye complaints Denies system reviewed and no additional complaints, except as documented and Reports as per HPI Cardiovascular: Reports as per HPI, Reports no additional cardiovascular complaints, Denies acrocyanosis, Denies cool extremities, Denies chest pain, Denies leg edema, Denies lightheadedness, Denies palpitations and Denies dyspnea Respiratory: Reports as per HPI, Denies no additional respiratory complaints and Denies dyspnea Gastrointestinal: Reports as per HPI and Denies no additional gastrointestinal complaints Genitourinary: Reports as per HPI Musculoskeletal: Reports no additional musculoskeletal complaints and Reports as per HPI Skin/Breast: Reports system reviewed and no additional complaints, except as docu Reports system reviewed and no additional complaints, except as documented and Reports as per HPI Psychiatric: Reports no additional psychiatric complaints and Reports as per HPI Endocrine: Reports no additional endocrine complaints, Reports as per HPI and Denies palpitations Hematologic/Lymphatic: Reports no additional hematologic/lymphatic complaints and Reports as per HPI Allergic/Immunologic: Reports no additional allergic/immunologic complaints and Reports as per HPI Physical Exam Vital Signs: Last Vital Signs Temp 98.0 F 05/30/24 08:00 Pulse 66 05/30/24 08:00 Resp 19 05/30/24 08:00 BP 114/56 L 05/30/24 08:50 Pulse Ox 92 05/30/24 08:00 O2 Del Method Room Air 05/30/24 08:00 O2 Flow Rate 2 05/26/24 07:49 BMI result Body Mass Index 24.0 Const General: comfortable and no acute distress Orientation/consciousness: patient oriented x3 HEENT Other: Unremarkable Head: Yes normal to inspection Neck Neck: Yes normal visual inspection Chest Chest palpation & inspection: normal inspection of the chest Resp Auscultation: clear to auscultation bilaterally Cardio Palpation: normal PMI Heart sounds: S1 normal heart sound present, S2 normal heart sound present, no gallops, no murmurs and no rubs GI Palpation (GI): Soft to palpation Back/Spine/Pelvis Other: unremarkable Skin General skin exam: no rashes or lesions noted Neuro General: patient oriented x3 Extrem General: Yes normal to inspection Psych Mental Status: mental status grossly normal Objective Labs and Meds 05/28/24 06:14 05/28/24 06:14 Progress Note: A&P Assessment and plan (1) NSTEMI (non-ST elevated myocardial infarction): Status: Acute Plan Troponin levels reviewed. They started 8.9, peaked at 5458 and then started coming down to 1686. In the echocardiogram, LVEF is low normal at 53%. Basal inferior akinesis. Chest CTA with lingular/left lower lobe pneumonia as well as acute pulmonary embolus in the left lower lobe segmental branch. Troponin elevation could be related to demand related NSTEMI in setting of acute medical issues, including hypotension. For medications, she is on subcutaneous Lovenox, aspirin, low-dose beta-blockers and statins. Also on antibiotics. We discussed about further workup regarding NSTEMI. After discussing several options, she felt most comfortable with getting further workup done as an inpatient. Hence we will transferred to [facility] for cardiac catheterization. Scheduled for Friday. May switch to IV heparin about 12 hours after the last Lovenox dose. Post catheterization, oral anticoagulation for pulmonary embolism per primary team. Will arrange follow-up post discharge. Discussed with hospitalist. Requested bed in [facility]. Time Spent With Patient Time: Total time managing care of this patient today 42 minutes. This includes time spent in review of chart, laboratory data, imaging studies, review of telemetry, counseling patient, discussion with hospitalist, RN, arranging patient transfer, documentation, coordination of care. Progress Note: Quality Stroke Does the patient have a stroke diagnosis?: No Procedures Date of Service Date of Service: 05/30/24
[2024-05-30] MEDS: Azithromycin 500 MG TABLET PO (11:55)
[2024-05-30] MEDS: cefuroxime axetiL 500 MG TABLET PO (11:55)
[2024-05-30 12:00] VITALS: BP 105/57; PULSE 63; RESP 18; TEMP 36.4; O2SAT 95
== END 2024-05-30 13:36 | disposition short-term general hospital (02) | DRG 871 ==
LOC: HO.ED 22:39 → HO.EDOVER 05-23 13:23 → HO.IMC 05-23 21:59
PROVIDERS: Emergency Medicine; Physician Assistant; Registered Nurse Emergency; Admitting Provider Student in an Organized Health Care Education/Training Program; Emergency Provider Emergency Medicine; PCP Nurse Practitioner Family; Visit Provider Internal Medicine
DX: A41.9 Sepsis, unspecified organism (principal); I21.A1 Myocardial infarction type 2; I26.99 Other pulmonary embolism without acute cor pulmonale; R65.21 Severe sepsis with septic shock; J18.9 Pneumonia, unspecified organism; J96.01 Acute respiratory failure with hypoxia; I50.9 Heart failure, unspecified; F10.20 Alcohol dependence, uncomplicated; E83.42 Hypomagnesemia; E87.6 Hypokalemia; F32.A Depression, unspecified; Z87.891 Personal history of nicotine dependence; Z20.822 Contact with and (suspected) exposure to COVID-19; Z79.899 Other long term (current) drug therapy
CPT/HCPCS: 0241U; 36415; 71045; 71275; 80048; 80053; 80061; 80076; 80307; 83605; 83735; 83880; 84484; 85025; 85027; 85610; 87040; 93005; 93306; 93970; 99285; J0456; J0696; J1170; J1650; J1885; J1940; J2405; J2543; J3010; J7120; P9047; Q9967

== ENCOUNTER 2024-05-23 13:14 | Outpatient (BNV) | payer OTHER, SELFPAY | END 2024-05-24 07:00 | PROVIDERS: Admitting Provider Student in an Organized Health Care Education/Training Program; Emergency Provider Emergency Medicine; PCP Nurse Practitioner Family; Visit Provider Internal Medicine | DX: I34.0 Nonrheumatic mitral (valve) insufficiency (principal); I36.1 Nonrheumatic tricuspid (valve) insufficiency | CPT/HCPCS: 93306 ==

== ENCOUNTER → 2024-05-23 13:14 | Outpatient (BNV) | payer OTHER, SELFPAY | PROVIDERS: Admitting Provider Student in an Organized Health Care Education/Training Program; Emergency Provider Emergency Medicine; PCP Nurse Practitioner Family; Visit Provider Student in an Organized Health Care Education/Training Program | DX: I50.9 Heart failure, unspecified (principal); A41.9 Sepsis, unspecified organism; R65.21 Severe sepsis with septic shock; I26.99 Other pulmonary embolism without acute cor pulmonale; J18.9 Pneumonia, unspecified organism; E87.6 Hypokalemia | CPT/HCPCS: 99223; 99232; 99239 ==

== ENCOUNTER → 2024-05-23 13:14 | Outpatient (BNV) | payer OTHER, SELFPAY | PROVIDERS: Admitting Provider Student in an Organized Health Care Education/Training Program; Emergency Provider Emergency Medicine; PCP Nurse Practitioner Family; Visit Provider Internal Medicine Pulmonary Disease | DX: I26.99 Other pulmonary embolism without acute cor pulmonale (principal); J18.9 Pneumonia, unspecified organism; J96.01 Acute respiratory failure with hypoxia | CPT/HCPCS: 99222 ==

== ENCOUNTER → 2024-05-23 13:14 | Outpatient (BNV) | payer OTHER, SELFPAY | PROVIDERS: Admitting Provider Student in an Organized Health Care Education/Training Program; Emergency Provider Emergency Medicine; PCP Nurse Practitioner Family; Visit Provider Internal Medicine | DX: I21.4 Non-ST elevation (NSTEMI) myocardial infarction (principal) | CPT/HCPCS: 99223; 99233 ==

== ENCOUNTER → 2024-05-31 23:59 | Outpatient (BNV) | payer OTHER, SELFPAY | PROVIDERS: PCP Nurse Practitioner Family; Visit Provider Internal Medicine Cardiovascular Disease | DX: I21.4 Non-ST elevation (NSTEMI) myocardial infarction (principal) | CPT/HCPCS: 93458; 99152 ==

== ENCOUNTER 2024-06-02 14:47 | Outpatient (AMB) | payer OTHER, SELFPAY ==
--- NOTE | 2024-06-02 14:27 | A.OFFPC_ITS ---
Vital Signs 06/02/24 15:04 Weight 137 lb BP 110/68 Blood Pressure Location Rt brachial Position Sitting Respiration 16 Pulse 80 Pulse Source Pulse Oximeter Temp 97.7 F Temp Source Oral Pulse Oximetry (%) 98 Oxygen Delivery Method Room Air Intake Visit Reasons: Office visit (FMLA Paperwork) Intake Note: patient here for FMLA paperwork. 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 Is last menstrual period known: Yes Last menstrual period: 05/28/24 Post menopausal: No Patient : No Allergies No Known Allergies [No Known Allergies*] Allergy (Verified 06/02/24 15:11) Medication List - Last Reconciled 06/02/24 by Bert Cartagena CNP apixaban (Eliquis) mg PO bupropion HCl XL (Wellbutrin XL) 300 mg PO DAILY cefpodoxime mg PO fluoxetine (Prozac) 40 mg PO DAILY Tobacco use date assessed: 06/02/24 Dental Screening Dental Screen Date: 06/02/24 Did you have a dental visit in the last 12 months?: Yes Did you have a dental problem in the last 6 months where you did not have access to dental care?: No Was dental information given to patient?: Patient has dentist HPI HPI Comments History of Present Illness Details 54-year-old female, accompanied by her s pouse, presents for hospital discharge follow-up She was admitted at [facility] between 05/22/2024 and 05/30/2024. On 05/30/2024, she was transferred to [facility] for cardiac catheterization. Discharged summary is below: DS: Summary Hospital Course Hospital Course: from initial hpi: 54 years old lady with PMH of anxiety, d epression and alcohol abuse presents to the hospital complaining of SOB, cough and fever for 2-3 weeks [employer]. The patient reports feeling sick for the last 2 weeks at least. evaluated by her PCP and at [facility] who treated her as viral illness with supportive therapy. She has been feeling worse with increase pain in the left side of her chest associated with deep breath. She also reports fever, chills, dyspnea, joint pain and feeling unwell. No nausea, vomiting, diarrhea or urinary symptoms. denies family hx of clots, no recent travel or prolonged rest. She continues to drink alcohol. Tox screen positive for THC only. In ED CTA showed left sided PE with LLL infiltrates. patient was hypotensive requiring IV fluids and IV pressors with fair response. Admitted for further work up and management. hospital course: Patient was admitted for acute hypoxic respiratory failure and septic shock secondary to pneumonia. She received multiple IV fluid boluses and albumin and vasopressors, blood pressure improved was taken off vasopressors on 05/23/2024. Blood cultures were negative. Was treated with Zosyn and azithromycin and sepsis resolved, was transitioned to cefuroxime and azithromycin and will continue until 06/03/2024. Patient was weaned off oxygen and now comfortable on room air. Patient also noted to have acute nonocclusive segmental left lower lobe pulmonary embolism. She was treated with full-dose Lovenox and should transitioned to oral DOAC after cardiac catheterization. For NSTEMI differential includes demand ischemia from sepsis and underlying coronary disease, was treated with Lovenox, aspirin, statin, beta-cara. Echo showed EF of 55-65% with basal inferior akinesis, plan is to transfer to [facility] for cardiac catheterization. Course complicated by acute hypokalemia and hypomagnesemia which was replaced. Patient has a history of alcohol dependence but showed no signs of withdrawal during hospitalization. For depression was continued on fluoxetine. [facility] discharge summary: Hospital course 54-year-old female with past medical his tory significant for anxiety, depression, and alcohol use disorder in remission who presented to [facility] on 05/23/2024 with worsening dyspnea and left-sided pleuritic chest pain in the setting of a 2-week long illness. She was admitted and treated for left lower lobe pneumonia with initial criteria for septic shock, and was also found to have left-sided segmental pulmonary embolus for which she was started on subcutaneous Lovenox. The patient's symptoms slowly improved throughout hospitalization, and she remained afebrile and hemodynamically stable. Transferred here for cath. She was taken for cardiac cath 9:[address] Meehan revealing nonobstructive CAD. She was kept overnight for monitoring. 06/01: Accepted the patient under my car e at 7AM. Chart reviewed, saw and examined patient. Patient remains asymptomatic. Blood work stable. She ambulated without symptoms. She is given a note for work. She is advised to follow-up with PCP and Cardiology, and obtain referral for Hematology for her unprovoked PE. Discharge Medications: Apixaban 5 mg twice daily Bupropion HCL XL 300 mg daily Cefpodoxime 200 mg every 12 hours -continue taking twice daily for 5 more doses Fluoxetine 40 mg daily She notes that she has significantly improved. Her only symptoms are intermittent nonproductive cough and left upper chest discomfort She states that she is almost out of bupropion and request refills. She has adequate quantity of fluoxetine She is followed by [facility] Cardiology and has an appointment for an echo later this month [facility] Medical History Suicide attempt Alcoholism Surgical History History of bladder surgery Social History Household Members: Spouse and Family Housing: House Do you presently have visiting nurse or other home services: No Alcohol intake: current Alcohol intake frequency: holidays/special occasions only Alcohol type: beer Comment: see previous admission note Patient Tobacco Use Status: Former Tobacco user e-Cigarette/Vaping Use: Currently Using service: No Current occupational status: unemployed Current occupational exposures/hazards: No Cognitive needs: No Hearing needs: No Vision needs: Yes Female Reproductive History Menstrual Date of last menstrual period: 05/28/24 Questionnaire Thrive Questionnaire Date Thrive assessed: 05/24/24 RANDELL-7 AMB Questionnaire RANDELL-7 Date RANDELL - 7 assessed: 04/01/23 Source: Developed by Drs. Chepe Mace, Jennifer Li, Jovanny Coyne and colleagues, with an educational shireen from [employer] Review of Systems Const Details: Const Denies chills, Denies fatigue, Denies fever(s), Denies headache(s) and Denies weakness ENT Denies dizziness and Denies headache(s) Card Denies lightheadedness, Denies dyspnea and Denies other (Palpitations) Resp Denies dyspnea, Denies wheezing and Denies other ( shortness of breath) GI Denies abdominal pain, Denies melena, Denies hematochezia, Denies change in bowel habits, Denies dyspepsia and Denies nausea Denies hematuria and Denies dysuria Musc Denies abnormal gait, Denies myalgias, Denies arthralgias, Denies numbness and Denies tingling Skin/Breast Denies rash, Denies unusual bruising and Denies wounds Neuro Denies abnormal gait, Denies dizziness, Denies headache(s), Denies memory loss, Denies numbness, Denies Sensory deficit (Neuro), Denies tingling and Denies weakness Psych Denies anxiety, Denies depression, Denies memory loss Endo Denies cold intolerance, Denies fatigue, Denies heat intolerance, Denies polydipsia and Denies polyuria Aller/Immun Denies wheezing Physical exam (Primary Care) Tobacco/Smoking Status: Tobacco use Status Tobacco use date assessed 05/12/24 06/02/24 14:31 Patient Tobacco Use Status Former Tobacco user 06/02/24 14:31 e-Cigarette/Vaping Use Currently Using 06/02/24 14:31 Thrive Assessment: Date of Thrive Assessment Date Thrive assessed 05/24/24 06/02/24 14:31 Const Other: General: no acute distress and well developed Nutritional Appearance: well nourished Orientation/consciousness: patient oriented x3 HENMT Head: Yes normocephalic and Yes atraumatic Eyes General: appearance normal, both eyes and all related structures Pupils: Equal, round and reactive pupils present EOM: EOMs intact bilaterally Resp Effort & Inspection: normal respiratory effort Auscultation: clear to auscultation bilaterally Cardio Rate: regular rate Rhythm: regular rhythm Heart sounds: S1 normal heart sound present, S2 normal heart sound present, no gallops, no murmurs and no rubs GI Palpation (GI): No Abdominal aortic bruit present, Soft to palpation, nontender, No hepatosplenomegaly present and No Rebound tenderness present Auscultation: normal bowel sounds General: Yes no CVA tenderness Back/Spine/Pelvis Back: no CVA tenderness Cervical Spine: cervical ROM normal and No Cervical spine tenderness Thoracic/Lumbar Spine: thoraco-lumbar ROM normal, No pain with thoraco-lumbar ROM, No thoracic spinal tenderness and No lumbar spinal tenderness Extrem General: Yes normal to inspection, No edema and No calf tenderness Skin General: warm and dry. Normal skin color. Normal skin turgor Neuro General: patient oriented x3, gait normal and no focal neuro deficit Cranial nerves: Yes Equal, round and reactive pupils present Cognition (Neuro): normal cognition Gait exam (Neuro): Normal gait present Sensory Exam: No Sensory deficit (Neuro) Psych Appearance: grossly normal Affect: normal affect Attitude: cooperative Thought process: Normal thought process present Coding Level of Care Code Est Pt Level 4 (11575) Diagnoses Acute respiratory failure with hypoxia J96.01 NSTEMI (non-ST elevated myocardial infarction) I21.4 Acute hypokalemia E87.6 Septic shock A41.9; R65.21 Pulmonary embolism I26.99 Multifocal pneumonia J18.9 Assessment & Plan Assessment & Plan (1) Acute respiratory failure with hypoxia: Code(s): J96.01 - Acute respiratory failure with hypoxia Category: Medical Plan: Resolved Hemodynamically stable Recent labs within normal limits Follow-up in 1 month for an extended physical exam or sooner with symptoms or concerns Verbalized understanding and agreed with the plan Note given for work. [place] paperwork completed (2) NSTEMI (non-ST elevated myocardial infarction): Code(s): I21.4 - Non-ST elevation (NSTEMI) myocardial infarction Category: Medical Plan: Resolved Hemodynamically stable Recent labs within normal limits Followed by cardiology (3) Acute hypokalemia: Code(s): E87.6 - Hypokalemia Category: Medical Plan: (4) Septic shock: Code(s): A41.9 - Sepsis, unspecified organism; R65.21 - Severe sepsis with septic shock Category: Medical Plan: Resolved Hemodynamically stable Recent labs within normal limits (5) Pulmonary embolism: Code(s): I26.99 - Other pulmonary embolism without acute cor pulmonale Category: Medical Plan: She has significantly improved. Her only symptoms are intermittent nonproductive cough and left upper chest discomfort Continue current treatment regimen May take Tylenol as needed for discomfort Referred to pulmonology and Hematology (6) Multifocal pneumonia: Code(s): J18.9 - Pneumonia, unspecified organism Category: Medical Plan: She has significantly improved. Her only symptoms are intermittent nonproductive cough and left upper chest discomfort Continue current treatment regimen May take Tylenol as needed for discomfort Follow-up with worsening or new symptoms Verbalized understanding and agreed with the plan Orders: Referrals Hematology & Oncology Referral I26.99 - Other pulmonary embolism without acute cor pulmonale Pulmonology Referral I26.99 - Other pulmonary embolism without acute cor pulmonale Medications: Changed From bupropion HCl XL (Wellbutrin XL) 300 mg PO DAILY To bupropion HCl XL (Wellbutrin XL) 300 mg PO DAILY 30 days 30 tabs 3RF
[2024-06-02 15:04] VITALS: BP 110/68; PULSE 80; RESP 16; TEMP 36.5; O2SAT 98
== END 2024-06-02 16:06 | disposition home or self-care (01) ==
PROVIDERS: PCP Nurse Practitioner Family; Visit Provider Nurse Practitioner Family
DX: J96.01 Acute respiratory failure with hypoxia (principal); I21.4 Non-ST elevation (NSTEMI) myocardial infarction; A41.9 Sepsis, unspecified organism; R65.21 Severe sepsis with septic shock; I26.99 Other pulmonary embolism without acute cor pulmonale; E87.6 Hypokalemia; J18.9 Pneumonia, unspecified organism

== ENCOUNTER → 2024-06-02 14:47 | Outpatient (BNVA) | payer OTHER, SELFPAY | PROVIDERS: PCP Nurse Practitioner Family; Visit Provider Nurse Practitioner Family ==

== ENCOUNTER 2024-06-10 14:50 | Outpatient (AMB) | payer OTHER, SELFPAY ==
[2024-06-10 14:54] VITALS: BP 104/58; PULSE 75; O2SAT 97; BMI 23.5
--- NOTE | 2024-06-10 14:54 | A.OFFVIS_ITS ---
Vital Signs 06/10/24 14:54 Height 5 ft 4 in Weight 137 lb BMI 23.5 BP 104/58 L Blood Pressure Location Rt brachial Position Sitting Pulse 75 Pulse Source Doppler Pulse Oximetry (%) 97 Oxygen Delivery Method Room Air Intake Visit Reasons: PE Allergies No Known Allergies [No Known Allergies*] Allergy (Verified 06/02/24 15:11) HPI HPI PE: Details: 52-year-old lady, now smoking, but has been vaping prior to recent admission for pneumonia and segmental pulmonary embolism. Patient initially required supplemental oxygen, however at discharge was able to maintain normal oximetry on room air. She was discharged on Eliquis with further Pulmonary and immunological follow-up. Patient states that her respiratory status has improved close to baseline, but she does still have reasonable minimal dyspnea and small amount of cough productive clearish sputum. Patient is scheduled to follow-up with Hematology in August of 2024 for further testing. [facility] Medical History Suicide attempt Alcoholism Surgical History History of bladder surgery Social History (Updated 06/10/24 @ 15:01 by ALEX Flores) Household Members: Spouse and Family Housing: House Do you presently have visiting nurse or other home services: No Alcohol intake: current Alcohol intake frequency: holidays/special occasions only Alcohol type: beer Comment: see previous admission note Patient Tobacco Use Status: Former Tobacco user Years Smoked: vaping for a couple years, quit by end of may 2024 e-Cigarette/Vaping Use: Currently Using service: No Current occupational status: unemployed Current occupational exposures/hazards: No Cognitive needs: No Hearing needs: No Vision needs: Yes Review of Systems Const Denies daytime sleepiness, Denies excessive sweating, Denies fatigue, Denies fever(s), Denies lethargy, Denies malaise, Denies night sweats, Denies snoring and Denies weight loss Eyes Denies blurry vision and Denies itchy eyes ENT Denies nasal congestion, Denies post nasal drip, Denies sinus pain, Denies sinus pressure and Denies other ( Thrush) Card Denies chest pain, Denies pedal edema, Denies dyspnea, Denies orthopnea and Denies paroxysmal nocturnal dyspnea Resp Denies cough, Denies hemoptysis, Denies excessive phlegm production, Denies dyspnea, Denies snoring and Denies wheezing GI Denies abdominal pain and Denies heartburn Musc Denies myalgias, Denies arthralgias and Denies joint swelling Skin/Breast Denies rash Neuro Denies memory loss and Denies seizure-like activity Psych Denies abnormal sleep pattern, Denies anxiety and Denies memory loss Endo Denies excessive sweating, Denies fatigue and Denies heat intolerance Will/Lymph Denies easy bruising Aller/Immun Denies itchy eyes, Denies seasonal rhinorrhea and Denies wheezing Physical Exam Vital Signs: Last Vital Signs Pulse 75 06/10/24 14:54 BP 104/58 L 06/10/24 14:54 Pulse Ox 97 06/10/24 14:54 Oxygen Delivery Method Room Air 06/10/24 14:54 BMI result Body Mass Index 23.5 Const General: no acute distress and alert Nutritional Appearance: not obese Orientation/consciousness: Other orientation findings ( oriented) HEENT Head: Yes atraumatic Eyes General: appearance normal, both eyes and all related structures Sclerae: sclerae normal EOM: EOMs intact bilaterally Neck Neck: Yes supple Lymphatic: no lymphadenopathy noted Resp Effort & Inspection: normal respiratory effort and no use of accessory muscles Auscultation: clear to auscultation bilaterally Cardio Rate: regular rate Rhythm: regular rhythm Heart sounds: no gallops, no murmurs and no rubs Skin General skin exam: other ( warm) Extrem General: No clubbing, No cyanosis and No edema Assessment & Plan Assessment & Plan (1) Multifocal pneumonia: Code(s): J18.9 - Pneumonia, unspecified organism Category: Medical Plan: Clinically resolved, respiratory status close to baseline. No longer requires supplemental oxygen. (2) Pulmonary embolism: Code(s): I26.99 - Other pulmonary embolism without acute cor pulmonale Category: Medical Plan: Segmental unprovoked pulmonary embolism. Patient continues on Eliquis and has hematology follow-up in August of 2024 for further workup. Coding Level of Care Code Est Pt Level 4 (38507) Diagnoses Multifocal pneumonia J18.9 Pulmonary embolism I26.99
== END 2024-06-10 15:14 | disposition home or self-care (01) ==
PROVIDERS: PCP Nurse Practitioner Family; Referring Provider Nurse Practitioner Family; Visit Provider Internal Medicine Pulmonary Disease
DX: J18.9 Pneumonia, unspecified organism (principal); I26.99 Other pulmonary embolism without acute cor pulmonale
CPT/HCPCS: 99214

== ENCOUNTER → 2024-06-10 14:50 | Outpatient (BNVA) | payer OTHER, SELFPAY | PROVIDERS: PCP Nurse Practitioner Family; Referring Provider Nurse Practitioner Family; Visit Provider Internal Medicine Pulmonary Disease ==

== ENCOUNTER → 2024-06-30 12:50 | Outpatient (REF) | payer OTHER, SELFPAY ==
--- NOTE | 2024-06-30 12:53 | CA_ITS ---
Transthoracic Echocardiogram Patient (Last, First, Middle): Cristina Campos, Gender: Female Date of : 1970 Age: 54 Procedure Date: 06/30/2024 Procedure Type: Transthoracic Echocardiogram Location: OP Height: 162.56 cm Weight: 61.69 kg BSA: 1.66 m2 Heart Rate: bpm BP: 94 / 64 mmHg Overage Shortage And Damage Clerk: TO Referring MD: Willy Almaraz MD Symptoms: I21.4 - Non-ST elevation (NSTEMI) myocardial infarction Study Quality: Fair/Contrast ECG Rhythm: Sinus Conclusions: - The left ventricular systolic function is normal. The calculated ejection fraction is 59% by biplane method. - No obvious valvular pathology seen on this study. Findings Procedure Information Contrast agent, definity, is being given per protocol without apparent complications. Left Ventricle Normal left ventricular cavity size. There is normal left ventricular wall thickness. The left ventricular systolic function is normal. The calculated ejection fraction is 59% by biplane method. There is no evidence of regional wall motion abnormalities. Diastolic function is normal for age. Right Ventricle Normal right ventricular cavity size and systolic function. Atria Both atria are normal in size. Aortic Valve There is a normal trileaflet aortic valve. There is no aortic valve stenosis. There is no aortic valve regurgitation. Mitral Valve The mitral valve appears normal. There is trace mitral valve regurgitation. There is no mitral valve stenosis. Pulmonic Valve The pulmonic valve is likely normal. Tricuspid Valve There is mild tricuspid valve regurgitation. There is no evidence of pulmonary hypertension. Great Vessels The asc aorta is normal in size. Venous The inferior vena cava is normal in size and collapses greater than 50% with inspiration. Pericardium/Pleural There is no evidence of pericardial effusion. Prior Study Comparison Changes noted compared to prior study dated: 05/24/2024. Wall motion abnormality not obvious. Recommendations, Care & Conclusions No obvious valvular pathology seen on this study. Measurements 2D Linear Measurements IVSd: 0.97 0.6-0.9/0.6-1.0 cm LVIDd: 4.38 3.9-5.3/4.2-5.9 cm LVIDd Index: 2.64 2.4-3.2/2.2-3.1 cm/m2 LVIDs: 2.52 2.0-3.6 cm LVPWd: 0.98 0.7-1.1 cm LA Diam: 3.30 2.7-3.8/3.0-4.0 cm LAIDs Index: 1.99 1.5-2.3 cm/m2 LV Mass: 176.52 67-162/88-224 g LV Mass Index: 106.34 43-95/49-115 g/m2 LVOT Diam: 2.10 3.0+(-)1.3 cm 2D Systolic Function EF 4C: 60.30 >55% EF 2C: 59.40 >55% EF BiP: 58.60 >55% Mitral Valve MV Pk E: 0.76 MV PK A: 0.45 MV Decel Time: 185.00 E/A: 1.70 E'Lateral: 13.30 E'Medial: 10.10 E/E' Med: 7.50 E/E' Lat: 5.70 PHT: 54.00 MVA PHT: 4.07 Decel [place]: 4.11 Aortic Valve AoV Pk Andrea: 1.29 AoV Mn Andrea: 0.86 AoV VTI: 0.26 AoV Pk Grad: 7.00 Aov Mn Grad: 3.00 CECIL Cont.VTI: 3.27 LVOT LVOT Pk Andrea: 1.22 LVOT Mn Andrea: 0.83 LVOT VTI: 0.24 LVOT Pk Grad: 6.00 LVOT Mn Grad: 3.00 LVOT Diam: 2.10 LVOT Area: 3.46 Diastolic Function MV Pk E: 0.76 MV Pk A: 0.45 E/A: 1.70 E'Medial: 10.10 E/E' Med: 7.50 E' Laterial: 13.30 E/E' Lat: 5.70 Right Ventricle TAPSE (mm): 25.80 TVS' Andrea: 13.70 Tricuspid Valve TR Pk Andrea: 2.35 TR Pk Grad: 22.00 RA Press: 3.00 RVSP: 25.00 Great Vessels Aorta Sinus of Valsalva: 2.97 2.0-3.5 cm Ao Asc: 3.00 2.1-3.4 cm Updated in Other Vendor System with Status of Final Willy Almaraz MD electronically signed on 07/02/2024 6:20:51 PM with status of Final
== END ==
LOC: HO.CARD 12:50
PROVIDERS: PCP Nurse Practitioner Family; Visit Provider Internal Medicine
DX: I21.4 Non-ST elevation (NSTEMI) myocardial infarction (principal)
CPT/HCPCS: 93306; Q9957

== ENCOUNTER → 2024-06-30 12:53 | Outpatient (BNV) | payer OTHER, SELFPAY | PROVIDERS: PCP Nurse Practitioner Family; Visit Provider Internal Medicine | DX: I21.4 Non-ST elevation (NSTEMI) myocardial infarction (principal); I36.1 Nonrheumatic tricuspid (valve) insufficiency | CPT/HCPCS: 93306 ==